=== PATIENT | male | born 1935 | race Caucasian/White ===

== ENCOUNTER 2021-07-12 10:06 | Observation (INO) ==
[2021-07-12] MEDS ORDERED: ZOFRAN INJ 4 MG VIAL IVP PRN (10:49)
[2021-07-12 11:08] LABS: BASOPHILS # (AUTO) 0.1 X10^3/uL (0.0-0.1); EOSINOPHILS # (AUTO) 0.2 x10^3/uL (0.0-0.2); EOSINOPHILS % (AUTO) 2.6 % (0.9-2.9); HEMATOCRIT 39.2 % (42.0-54.0); HEMOGLOBIN 13.2 g/dL (13.5-18.0); LYMPHOCYTES # (AUTO) 1.1 X10^3/uL (1.3-2.9); LYMPHOCYTES % (AUTO) 18.5 % (21.0-51.0); MEAN CORPUSCULAR HEMOGLOBIN 30.7 pg (27.0-34.0); MEAN CORPUSCULAR HGB CONC 33.7 g/dL (33.0-35.0); MEAN CORPUSCULAR VOLUME 91.2 fL (80.0-100.0); MONOCYTES # (AUTO) 0.8 x10^3/uL (0.3-0.8); MONOCYTES % (AUTO) 13.2 % (0.0-13.0); NEUTROPHILS # (AUTO) 3.8 x10^3/uL (2.2-4.8); NEUTROPHILS % (AUTO) 64.7 % (42.0-75.0); PLATELET COUNT 183 X10^3/uL (150.0-450.0); WHITE BLOOD COUNT 5.9 X10^3/uL (3.6-10.0)
[2021-07-12 11:26] LABS: ALANINE AMINOTRANSFERASE 17 Units/L (12-78); ALBUMIN 3.7 g/dL (3.4-5.0); ALKALINE PHOSPHATASE 141 Units/L (46-116); ASPARTATE AMINO TRANSFERASE 16 Units/L (15-37); BLOOD UREA NITROGEN 12 mg/dL (7-18); CALCIUM 8.4 mg/dL (8.5-10.1); CHLORIDE 103 mmol/L (98-107); CREATININE 1.55 mg/dL (0.70-1.30); SODIUM 139 mmol/L (136-145); TOTAL PROTEIN 7.1 g/dL (6.4-8.2); eGFR NON BLACK RACES 45 (>60)
[2021-07-12] MEDS: NS 1,000 ML IV 1,000 ML IV SCH ×2 (11:49→19:29)
[2021-07-12 12:07] VITALS: BMI 23.9
--- NOTE | 2021-07-12 14:58 | CT ---
HISTORYAbdominal pain with bloatingSTUDYABDOMEN/PELVIS WITH CONCOMPARISONNone availableTECHNIQUEMultiple axial images of the abdomen and pelvis were obtained from the lung bases to the pubic symphysis after the administration of IV contrast. Dose reduction techniques including Automated Exposure Control (AEC) and adjustment of mA and kV were utilized.FINDINGSThe visualized portions of the lung bases demonstrate moderate pleural effusions with associated subsegmental atelectasis right and left base. The liver, spleen, pancreas, and adrenal glands appear unremarkable. Generalized trophic changes of the right left kidneys are observed with normal medullary cortical enhancement. The urinary bladder demonstrates partial decompression with circumferential bladder wall thickening may be on the basis of longstanding bladder outlet obstruction. Postprocedural changes in the region of the prostate are observed may represent prior TURP. Within the dependent portion of the gallbladder calcific densities consistent with cholelithiasis are observed without CT evidence for acute cholecystitis. No significant mesenteric lymphadenopathy or stranding can be observed. No free fluid or free air is seen within the abdomen. No bowel wall thickening or bowel dilatation is present. Minimal diverticular change of the sigmoid colon is observed without CT evidence for acute diverticulitis. The bony structures are grossly intact.IMPRESSIONBilateral pleural effusions with associated subsegmental atelectasis right and left base.Coli lithiasis without CT evidence for acute cholecystitis.Generalized renal atrophy without hydronephrosis or hydroureter.Circumferential urinary bladder of thickening likely on the basis of chronic bladder outlet obstruction with postprocedural changes within the prostate that would be consistent with prior TURP. Correlation with surgical procedural history is requested.Electronically signed by: BERTHA COSTELLO (Jul 12, 2021 14:56:45)
[2021-07-12 15:56] LABS: BILIRUBIN,URINE NEGATIVE (NEGATIVE); BLOOD/HEMOGLOBIN,URINE 3+ (NEGATIVE); GLUCOSE, URINE NEGATIVE (NEGATIVE); KETONES,URINE NEGATIVE (NEGATIVE); LEUKOCYTE ESTERASE ,URINE NEGATIVE (NEGATIVE); NITRITES,URINE NEGATIVE (NEGATIVE); PROTEIN,URINE 2+ (NEGATIVE); UROBILINOGEN,URINE NORMAL (NORMAL)
[2021-07-12 16:03] LABS: APPEARANCE,URINE CLEAR (CLEAR); BACTERIA,URINE TRACE /HPF (NEGATIVE); COLOR,URINE YELLOW (YELLOW); SQUAMOUS EPITHELIAL CELL,UR RARE /HPF (NEGATIVE)
[2021-07-13] MEDS: NS 1,000 ML IV 1,000 ML IV SCH ×2 (01:38→05:01)
[2021-07-13 04:55] LABS: BASOPHILS # (AUTO) 0.1 X10^3/uL (0.0-0.1); EOSINOPHILS # (AUTO) 0.2 x10^3/uL (0.0-0.2); EOSINOPHILS % (AUTO) 2.8 % (0.9-2.9); HEMATOCRIT 34.8 % (42.0-54.0); HEMOGLOBIN 11.9 g/dL (13.5-18.0); LYMPHOCYTES # (AUTO) 1.1 X10^3/uL (1.3-2.9); LYMPHOCYTES % (AUTO) 17.3 % (21.0-51.0); MEAN CORPUSCULAR HEMOGLOBIN 30.4 pg (27.0-34.0); MEAN CORPUSCULAR VOLUME 89.2 fL (80.0-100.0); MEAN PLATELET VOLUME 8.5 fL (7.4-11.0); MONOCYTES # (AUTO) 0.9 x10^3/uL (0.3-0.8); MONOCYTES % (AUTO) 14.5 % (0.0-13.0); NEUTROPHILS # (AUTO) 3.9 x10^3/uL (2.2-4.8); NEUTROPHILS % (AUTO) 64.4 % (42.0-75.0); PLATELET COUNT 171 X10^3/uL (150.0-450.0); RED BLOOD COUNT 3.91 X10^6/uL (4.7-6.0); RED CELL DISTRIBUTION WIDTH 14.1 % (11.6-16.5); WHITE BLOOD COUNT 6.1 X10^3/uL (3.6-10.0)
[2021-07-13 05:04] LABS: ALANINE AMINOTRANSFERASE 15 Units/L (12-78); ALBUMIN 3.2 g/dL (3.4-5.0); ALKALINE PHOSPHATASE 122 Units/L (46-116); ASPARTATE AMINO TRANSFERASE 16 Units/L (15-37); BLOOD UREA NITROGEN 13 mg/dL (7-18); CARBON DIOXIDE 23.5 mmol/L (21-32); CHLORIDE 102 mmol/L (98-107); COR CA(FOR HYPOALB) 8.6 mg/dL (8.5-10.1); SODIUM 136 mmol/L (136-145); TOTAL PROTEIN 6.1 g/dL (6.4-8.2); eGFR NON BLACK RACES 47 (>60)
[2021-07-13 07:27] VITALS: BP 142/84
[2021-07-13] MEDS ORDERED: LOVENOX INJ 40 MG SYR SC SCH (10:00)
== END 2021-07-13 11:17 | disposition home or self-care (01) ==
LOC: MED/SURG
PROVIDERS: ADMIT Internal Medicine; ATTEND Internal Medicine
DX: R10.9 Unspecified abdominal pain; R82.998 Other abnormal findings in urine; K56.41 Fecal impaction; K80.21 Calculus of gallbladder without cholecystitis with obstruction; Z20.822 Contact with and (suspected) exposure to COVID-19; J90 Pleural effusion, not elsewhere classified

== ENCOUNTER 2021-07-15 10:53 | Observation (INO) ==
[2021-07-15] MEDS ORDERED: PEPCID 20 MG IV PREMIX* 20 MG/50 ML BAG IV SCH (13:39)
[2021-07-15] MEDS ORDERED: ZOFRAN INJ 4 MG VIAL IVP PRN (13:39)
[2021-07-15] MEDS ORDERED: MORPHINE SULFATE INJ 2 MG INJ IVP PRN (13:39)
[2021-07-15] MEDS ORDERED: PROTONIX INJ 40 MG VIAL IVP SCH (13:39)
[2021-07-15 13:58] LABS: BASOPHILS # (AUTO) 0.1 X10^3/uL (0.0-0.1); EOSINOPHILS # (AUTO) 0.1 x10^3/uL (0.0-0.2); EOSINOPHILS % (AUTO) 2.4 % (0.9-2.9); HEMATOCRIT 38.6 % (42.0-54.0); HEMOGLOBIN 12.8 g/dL (13.5-18.0); LYMPHOCYTES # (AUTO) 1.3 X10^3/uL (1.3-2.9); LYMPHOCYTES % (AUTO) 21.6 % (21.0-51.0); MEAN CORPUSCULAR HEMOGLOBIN 29.9 pg (27.0-34.0); MEAN CORPUSCULAR HGB CONC 33.2 g/dL (33.0-35.0); MEAN PLATELET VOLUME 8.4 fL (7.4-11.0); MONOCYTES % (AUTO) 16.9 % (0.0-13.0); NEUTROPHILS # (AUTO) 3.6 x10^3/uL (2.2-4.8); NEUTROPHILS % (AUTO) 58.1 % (42.0-75.0); PLATELET COUNT 185 X10^3/uL (150.0-450.0); RED BLOOD COUNT 4.29 X10^6/uL (4.7-6.0); RED CELL DISTRIBUTION WIDTH 14.1 % (11.6-16.5); WHITE BLOOD COUNT 6.1 X10^3/uL (3.6-10.0)
[2021-07-15] MEDS: NS 1,000 ML IV 1,000 ML IV SCH (14:15)
[2021-07-15 14:18] LABS: ALANINE AMINOTRANSFERASE 10 Units/L (12-78); ALBUMIN 3.7 g/dL (3.4-5.0); ALKALINE PHOSPHATASE 135 Units/L (46-116); ASPARTATE AMINO TRANSFERASE 18 Units/L (15-37); BLOOD UREA NITROGEN 19 mg/dL (7-18); CALCIUM 8.2 mg/dL (8.5-10.1); CARBON DIOXIDE 28.6 mmol/L (21-32); CHLORIDE 98 mmol/L (98-107); CREATININE 1.77 mg/dL (0.70-1.30); SODIUM 133 mmol/L (136-145); eGFR NON BLACK RACES 39 (>60)
[2021-07-15] MEDS ORDERED: NS 1,000 ML IV 1,000 ML ONE (14:37)
[2021-07-15] MEDS ORDERED: DIPRIVAN VIAL 20 ML ONE (14:43)
[2021-07-15] MEDS ORDERED: CITROMA PO ONE (16:30)
[2021-07-15] MEDS ORDERED: DULCOLAX TAB EC 5 MG PO ONE (16:30)
[2021-07-15 21:16] LABS: BILIRUBIN,URINE NEGATIVE (NEGATIVE); BLOOD/HEMOGLOBIN,URINE 3+ (NEGATIVE); GLUCOSE, URINE NEGATIVE (NEGATIVE); KETONES,URINE NEGATIVE (NEGATIVE); LEUKOCYTE ESTERASE ,URINE 1+ (NEGATIVE); NITRITES,URINE NEGATIVE (NEGATIVE); PROTEIN,URINE 3+ (NEGATIVE); UROBILINOGEN,URINE NORMAL (NORMAL)
[2021-07-15 21:23] LABS: APPEARANCE,URINE CLEAR (CLEAR); COLOR,URINE YELLOW (YELLOW)
[2021-07-15 21:24] LABS: BACTERIA,URINE TRACE /HPF (NEGATIVE); SQUAMOUS EPITHELIAL CELL,UR RARE /HPF (NEGATIVE)
[2021-07-16] MEDS: NS 1,000 ML IV 1,000 ML IV SCH (03:23)
[2021-07-16 06:10] LABS: BASOPHILS % (AUTO) 0.8 % (0.2-1.0); EOSINOPHILS # (AUTO) 0.1 x10^3/uL (0.0-0.2); EOSINOPHILS % (AUTO) 2.7 % (0.9-2.9); HEMOGLOBIN 11.6 g/dL (13.5-18.0); LYMPHOCYTES % (AUTO) 19.7 % (21.0-51.0); MEAN CORPUSCULAR HEMOGLOBIN 29.8 pg (27.0-34.0); MEAN CORPUSCULAR HGB CONC 33.2 g/dL (33.0-35.0); MEAN CORPUSCULAR VOLUME 89.8 fL (80.0-100.0); MEAN PLATELET VOLUME 8.4 fL (7.4-11.0); MONOCYTES # (AUTO) 0.8 x10^3/uL (0.3-0.8); MONOCYTES % (AUTO) 15.5 % (0.0-13.0); NEUTROPHILS # (AUTO) 3.1 x10^3/uL (2.2-4.8); NEUTROPHILS % (AUTO) 61.3 % (42.0-75.0); PLATELET COUNT 158 X10^3/uL (150.0-450.0); RED BLOOD COUNT 3.89 X10^6/uL (4.7-6.0); RED CELL DISTRIBUTION WIDTH 14.1 % (11.6-16.5)
[2021-07-16 06:23] LABS: ALANINE AMINOTRANSFERASE 12 Units/L (12-78); ALBUMIN 3.2 g/dL (3.4-5.0); ALKALINE PHOSPHATASE 117 Units/L (46-116); ASPARTATE AMINO TRANSFERASE 15 Units/L (15-37); BLOOD UREA NITROGEN 17 mg/dL (7-18); CARBON DIOXIDE 25.7 mmol/L (21-32); CHLORIDE 102 mmol/L (98-107); COR CA(FOR HYPOALB) 8.6 mg/dL (8.5-10.1); CREATININE 1.64 mg/dL (0.70-1.30); SODIUM 136 mmol/L (136-145); TOTAL PROTEIN 6.1 g/dL (6.4-8.2); eGFR NON BLACK RACES 43 (>60)
[2021-07-16] MEDS ORDERED: PEPCID 20 MG IV PREMIX* 50 ML IV ONE (07:04)
[2021-07-16] MEDS ORDERED: PROTONIX INJ 40 MG VIAL ONE (07:04)
[2021-07-16] MEDS ORDERED: DIPRIVAN VIAL 20 ML ONE (08:24)
[2021-07-16 08:29] VITALS: BMI 25.8
[2021-07-16] MEDS ORDERED: PROTONIX INJ 40 MG VIAL IVP SCH (09:00)
[2021-07-16] MEDS ORDERED: PEPCID 20 MG IV PREMIX* 20 MG/50 ML BAG IV SCH (09:00)
[2021-07-16 11:22] VITALS: BP 160/71
== END 2021-07-16 11:50 | disposition home or self-care (01) ==
LOC: MED/SURG
PROVIDERS: ADMIT Internal Medicine; ATTEND Internal Medicine

== ENCOUNTER 2021-07-22 15:32 | Inpatient (IN) ==
--- NOTE | 2021-07-22 16:01 | DR.SOBA ---
HPI Time Seen Time Seen by Provider: 07/22/21 15:45 Primary Care Physician Primary Care Physician: TEDDY ADEN Complaints Chief Complaint Doctors Comments: 86 y/o male awoke at 0300 having shortness of breath. Was associated with left chest pain, that radiated to his back. Pain was sharp, constant, lasted for several minutes. Pain returned shortly prior to arrival, still left side. Nothing made the pain worse, improved with rest and time. Currently resolved. No associated diaphoresis, nausea, vomiting. Per spouse, he looked pale. Pt has been admitted recently for GI issues, had EGD/colonoscopy performed recently. Abdomen currently doing better. Has had a slight non productive cough, denies fever or chills. Pt reports a 12 lb weight gain over the past few days. Chief Complaint:: PTS STATES " HE IS SOB AND HAVING C/P AND LEFT SIDE BACK PAIN " THAT STARTES THIS AM AT 0300 THIS AM AND IT GOT BETTER AND THAN AT 1430 HIS PAIN IS WORSE, ( PT STATES HIS PAIN IS TO HIS LEFT CHEST, " JUST HURTS ) PT WAS IN THE HOSPITAL TWICE LAST WEEK AND WAS D/C HOME THE NEXT DAY, AND PT WAS SEEN BY TEDDY ADEN ON MONDAY , DX OF DIVERTICULOSIS, PT HAD EGD , AND COLONOSCOPY, BR Self Treatment fo Chief Complaint: PT JUST STARTED TAKING REG MEDS ON , BR NO DISTRESS NOTED ,BR COVID-19 Coronavirus risk:travel/contact w/high risk person: No Has patient experienced Coronavirus symptoms: Yes Coronavirus symptoms experienced: Coughing and Shortness of Breath Reviewed Nurses Notes Reviewed: Yes Source History Provided: Patient Mode of Arrival Mode of Arrival: Wheelchair Timing Onset of Chief Complaint: 07/22/21 PMH PMH Past Medical History: Yes Past Medical History: Hypertension Past Surgical History: Yes Surgical History: Other Past Surgical History Comment: PACEMAKER ,BR Family History History of Family Medical Conditions: Yes Family Medical History: Diabetes Mellitus and Hypertension Social History Does patient currently use any type of tobacco product: No Have you used tobacco products in the last 12 months: No Type of Tobacco Use: None Does any household member use tobacco: No Alcohol Use: None Do you use any recreational Drugs:: No Lives With: Family Lives Where: Home Infectious screening In the last 2 months have you had wt loss of >10#?: NO Have you had fever, night sweats or hemotysis?: No Have you traveled outside the country in the last 6 months?: No Isolation: Standard ROS Review of Systems Constitutional: No Symptoms Reported Eyes: No Symptoms Reported ENTM: No Symptoms Reported Respiratoy: Non-Productive Cough and Short of Breath Cardiovascular: Chest Pain Gastrointestinal/Abdominal: No Symptoms Reported Genitourinary: No Symptoms Reported Neurological: No Symptoms Reported Musculoskeletal: No Symptoms Reported Integumentary: No Symptoms Reported Hematologic/Lymphatic: No Symptoms Reported Psychiatric: No Symptoms Reported All Other Systems: Reviewed and Negative PE Vital Signs Vitals: Temperature 97.7 F Pulse Rate [Left Radial] 70 Pulse Rate 36 Respiratory Rate 25 Blood Pressure [Left Arm] 121/85 Blood Pressure 135/58 O2 Sat by Pulse Oximetry 99 General Limitations: No Limitations General Appearance: Alert and In No Apparent Distress Head Head Exam: Normal Inspection Eyes Eye exam: Normal Appearance, PERRL and EOMI ENT ENT Exam: Normal Exam and Mucous Membranes Moist Neck Neck Exam: Normal Inspection Chest Chest Inspection: Normal Inspection Respiratory Respiratory Exam: Other (decreased breath sounds at the bases with rales ); negative Accessory Muscle Use and Respiratory Distress Cardiovascular Cardiovascular Exam: Regular Rate, Normal Rhythm and Normal Heart Sounds Abdominal Exam Abdominal Exam: Normal Inspection, Normal Bowel Sounds and Soft; negative Tenderness Extremities Extremities Exam: Normal Inspection and Full ROM; negative Tenderness and Edema Back Back Exam: Normal Inspection Neurologic Neurological Exam: Alert, Oriented X3 and CN II-XII Intact; negative Motor Sensory Deficit Psychiatric Psychiatric Exam: Normal Affect Skin Skin Exam: Warm and Dry MDM Differential Diagnosis Differential Diagnosis: CHF, COPD, Mycardial Infarction, Pneumonia and Pulmonary embolism COURSE Treatment Treatment: Pt with intermittent chest pain and dyspnea over the past 12 hours. Currently doing better. W/u initiated. 1751 - Pt with CHF. CXR wet, BNP > 2,000. Cardiac enzymes negative. Given IV lasix. Will admit. Discussed with his covering MD, Dr. Pablo, accepts the admission. ROR Labs Reviewed Laboratory Results Reviewed?: Yes Result Diagrams: 07/22/21 15:55 07/22/21 15:55 Laboratory: WBC 6.4 X10^3/uL (3.6-10.0) 07/22/21 15:55 RBC 4.05 X10^6/uL (4.7-6.0) L 07/22/21 15:55 Hgb 12.1 g/dL (13.5-18.0) L 07/22/21 15:55 Hct 36.0 % (42.0-54.0) L 07/22/21 15:55 MCV 88.7 fL (80.0-100.0) 07/22/21 15:55 MCH 29.8 pg (27.0-34.0) 07/22/21 15:55 MCHC 33.6 g/dL (33.0-35.0) 07/22/21 15:55 RDW 14.3 % (11.6-16.5) 07/22/21 15:55 Plt Count 236 X10^3/uL (150.0-450.0) 07/22/21 15:55 MPV 8.4 fL (7.4-11.0) 07/22/21 15:55 Neut % (Auto) 74.7 % (42.0-75.0) 07/22/21 15:55 Lymph % (Auto) 10.4 % (21.0-51.0) L 07/22/21 15:55 [place] % (Auto) 11.5 % (0.0-13.0) 07/22/21 15:55 Eos % (Auto) 1.7 % (0.9-2.9) 07/22/21 15:55 Baso % (Auto) 1.7 % (0.2-1.0) H 07/22/21 15:55 Neut # (Auto) 4.8 x10^3/uL (2.2-4.8) 07/22/21 15:55 Lymph # (Auto) 0.7 X10^3/uL (1.3-2.9) L 07/22/21 15:55 [place] # (Auto) 0.7 x10^3/uL (0.3-0.8) 07/22/21 15:55 Eos # (Auto) 0.1 x10^3/uL (0.0-0.2) 07/22/21 15:55 Baso # (Auto) 0.1 X10^3/uL (0.0-0.1) 07/22/21 15:55 Absolute Nucleated RBC 0.0 /100WBC 07/22/21 15:55 D-Dimer 1.01 ug/ml (0.0-0.57) H* 07/22/21 15:55 Sodium 134 mmol/L (136-145) L 07/22/21 15:55 Corrected Sodium 136 mmol/L (136-145) 07/22/21 15:55 Potassium 4.4 mmol/L (3.5-5.1) 07/22/21 15:55 Chloride 99 mmol/L (98-107) 07/22/21 15:55 Carbon Dioxide 27.0 mmol/L (21-32) 07/22/21 15:55 BUN 30 mg/dL (7-18) H 07/22/21 15:55 Creatinine 1.66 mg/dL (0.70-1.30) H 07/22/21 15:55 Est GFR (MDRD) Af Amer 51 (>60) L 07/22/21 15:55 Est GFR (MDRD) Non-Af 42 (>60) L 07/22/21 15:55 Glucose 166 mg/dL (65-99) H 07/22/21 15:55 Calcium 8.1 mg/dL (8.5-10.1) L 07/22/21 15:55 Corrected Calcium 8.7 mg/dL (8.5-10.1) 07/22/21 15:55 Total Bilirubin 0.50 mg/dL (0.2-1.0) 07/22/21 15:55 AST 18 Units/L (15-37) 07/22/21 15:55 ALT 7 Units/L (12-78) L 07/22/21 15:55 Alkaline Phosphatase 113 Units/L (46-116) 07/22/21 15:55 Creatine Kinase 79 Units/L (39-308) 07/22/21 15:55 CK-MB (CK-2) 2.5 ng/mL (0-4.0) 07/22/21 15:55 CK/CKMB % Calc 3.2 % (<4) 07/22/21 15:55 Troponin I 0.03 ng/mL (0-1.5) 07/22/21 15:55 B-Natriuretic Peptide 2960 pg/mL (0-79) H* 07/22/21 15:55 Total Protein 6.5 g/dL (6.4-8.2) 07/22/21 15:55 Albumin 3.3 g/dL (3.4-5.0) L 07/22/21 15:55 Globulin 3.2 g/dL (2.5-4.5) 07/22/21 15:55 Albumin/Globulin Ratio 1.0 Ratio (1.1-2.1) L 07/22/21 15:55 SARS CoV-2 RNA Rapid AREN Negative (NEGATIVE) 07/22/21 16:30 EKG Rate: 75 [place]: LAD Rhythm: Paced Opioid Opioid Risk Tool Age (Adonis box if 16-45): No History of Preadolescent Sexual Abuse: No Total: 0 Total Score Risk Category: Low Risk Copyright: James ANTOINE predicting aberrant behaviors Diagnosis Discharge Problem: Congestive heart failure Qualifiers: Heart failure chronicity: acute
--- NOTE | 2021-07-22 16:05 | RAD ---
HISTORYshortness of breath.br.br.br.br.br [id number] trachea is midline. Heart size is enlarged. Moderate increased interstitial opacities and central peribronchial thickening with bilateral pleural effusions. No change in positioning of left chest wall pacemaker. No pneumothorax.No acute osseous abnormality.IMPRESSIONCardiomegaly with moderate pulmonary interstitial edema and bilateral layering pleural effusions. Findings are most consistent with CHF and/or volume overload.Electronically signed by: DA CUTLER (Jul 22, 2021 16:03:55)
[2021-07-22] MEDS ORDERED: LASIX IVP ONE ×2 (16:08→16:13)
[2021-07-22 16:26] LABS: BASOPHILS # (AUTO) 0.1 X10^3/uL (0.0-0.1); BASOPHILS % (AUTO) 1.7 % (0.2-1.0); EOSINOPHILS # (AUTO) 0.1 x10^3/uL (0.0-0.2); EOSINOPHILS % (AUTO) 1.7 % (0.9-2.9); HEMOGLOBIN 12.1 g/dL (13.5-18.0); LYMPHOCYTES # (AUTO) 0.7 X10^3/uL (1.3-2.9); LYMPHOCYTES % (AUTO) 10.4 % (21.0-51.0); MEAN CORPUSCULAR HEMOGLOBIN 29.8 pg (27.0-34.0); MEAN CORPUSCULAR HGB CONC 33.6 g/dL (33.0-35.0); MEAN CORPUSCULAR VOLUME 88.7 fL (80.0-100.0); MEAN PLATELET VOLUME 8.4 fL (7.4-11.0); MONOCYTES # (AUTO) 0.7 x10^3/uL (0.3-0.8); MONOCYTES % (AUTO) 11.5 % (0.0-13.0); NEUTROPHILS # (AUTO) 4.8 x10^3/uL (2.2-4.8); NEUTROPHILS % (AUTO) 74.7 % (42.0-75.0); PLATELET COUNT 236 X10^3/uL (150.0-450.0); RED BLOOD COUNT 4.05 X10^6/uL (4.7-6.0); RED CELL DISTRIBUTION WIDTH 14.3 % (11.6-16.5); WHITE BLOOD COUNT 6.4 X10^3/uL (3.6-10.0)
[2021-07-22 16:46] LABS: ALBUMIN 3.3 g/dL (3.4-5.0); CALCIUM 8.1 mg/dL (8.5-10.1); CKMB % 3.2 % (<4); COR CA(FOR HYPOALB) 8.7 mg/dL (8.5-10.1); CREATINE KINASE MB 2.5 ng/mL (0-4.0); CREATININE 1.66 mg/dL (0.70-1.30); TOTAL PROTEIN 6.5 g/dL (6.4-8.2); TROPONIN I 0.03 ng/mL (0-1.5)
[2021-07-22 18:59] VITALS: BMI 25.4
[2021-07-22] MEDS: COLACE CAP 100 MG PO SCH (21:00)
[2021-07-22] MEDS: BENTYL CAP 10 MG PO SCH (21:00)
[2021-07-22] MEDS: INDERAL TAB 10 MG PO SCH (21:00)
[2021-07-22] MEDS: ENTRESTO 24/26 MG TAB PO SCH (21:00)
[2021-07-22] MEDS: MYSOLINE TAB 250 MG PO SCH (21:01)
[2021-07-22] MEDS: MIRALAX POWDER (1 DOSE 17 G) PO SCH (21:01)
[2021-07-22] MEDS: MILK OF MAGNESIA PO SCH (21:01)
[2021-07-22] MEDS: SINEMET (PLAIN) 25/100 MG PO SCH (21:06)
[2021-07-23] MEDS ORDERED: ROBITUSSIN DM PO PRN (05:35)
[2021-07-23 06:07] LABS: BASOPHILS % (AUTO) 0.7 % (0.2-1.0); EOSINOPHILS # (AUTO) 0.1 x10^3/uL (0.0-0.2); EOSINOPHILS % (AUTO) 1.8 % (0.9-2.9); HEMATOCRIT 35.7 % (42.0-54.0); LYMPHOCYTES # (AUTO) 1.1 X10^3/uL (1.3-2.9); LYMPHOCYTES % (AUTO) 17.1 % (21.0-51.0); MEAN CORPUSCULAR HEMOGLOBIN 29.7 pg (27.0-34.0); MEAN CORPUSCULAR HGB CONC 33.7 g/dL (33.0-35.0); MEAN PLATELET VOLUME 8.3 fL (7.4-11.0); MONOCYTES % (AUTO) 15.9 % (0.0-13.0); NEUTROPHILS # (AUTO) 4.2 x10^3/uL (2.2-4.8); NEUTROPHILS % (AUTO) 64.5 % (42.0-75.0); PLATELET COUNT 222 X10^3/uL (150.0-450.0); RED BLOOD COUNT 4.06 X10^6/uL (4.7-6.0); RED CELL DISTRIBUTION WIDTH 14.4 % (11.6-16.5); WHITE BLOOD COUNT 6.5 X10^3/uL (3.6-10.0)
[2021-07-23 06:18] LABS: ALBUMIN 3.2 g/dL (3.4-5.0); CALCIUM 8.3 mg/dL (8.5-10.1); CARBON DIOXIDE 26.6 mmol/L (21-32); COR CA(FOR HYPOALB) 8.9 mg/dL (8.5-10.1); CREATININE 1.59 mg/dL (0.70-1.30); TOTAL PROTEIN 6.1 g/dL (6.4-8.2)
[2021-07-23] MEDS: SINEMET (PLAIN) 25/100 MG PO SCH ×3 (06:18→21:07)
--- NOTE | 2021-07-23 06:23 | RAD ---
PROCEDURE: Chest X-ray 1 View .HISTORY: Congestive heart failure.TECHNIQUE: AP view .COMPARISON: 07/22/2021.TECHNICAL QUALITY: Satisfactory .FINDINGS:Heart size upper limits of normal with pacemaker on the left.Normal central vascularity.Improved hazy increased density at the bases may represent improved edema. No pleural fluid or pneumothorax.IMPRESSION:Improved edema at the lung bases with minimal residual changes remaining present.Electronically signed by: Alexei Ballesteros (Jul 23, 2021 06:21:57)
[2021-07-23] MEDS ORDERED: NAMENDA TAB 10 MG PO SCH (09:00)
[2021-07-23] MEDS ORDERED: EXELON PATCH TD SCH (09:00)
[2021-07-23] MEDS ORDERED: PATIENT'S HOME MEDICATION PO SCH (09:00)
[2021-07-23] MEDS ORDERED: LASIX IVP SCH (09:00)
[2021-07-23] MEDS: SYNTHROID 75 mcg TAB PO SCH (09:40)
[2021-07-23] MEDS: INDERAL TAB 10 MG PO SCH ×2 (09:40→20:19)
[2021-07-23] MEDS: COLACE CAP 100 MG PO SCH ×2 (09:41→20:19)
[2021-07-23] MEDS: BENTYL CAP 10 MG PO SCH ×2 (09:41→20:19)
[2021-07-23] MEDS: CRESTOR TAB 10 MG PO SCH (09:41)
[2021-07-23] MEDS: ENTRESTO 24/26 MG TAB PO SCH ×2 (09:41→20:19)
[2021-07-23] MEDS: MYSOLINE TAB 250 MG PO SCH ×2 (09:41→20:20)
[2021-07-23] MEDS: NORVASC TAB 5 MG PO SCH (09:42)
[2021-07-23] MEDS: PRASTERONE 25 MG PO SCH (09:43)
--- NOTE | 2021-07-23 11:21 | DR.H&P ---
H&P History & Physical for Day of: H&P Date: 07/23/21 Chief Complaint Chief Complaint: Shortness of breath Chest pain Allergies Allergies Allergy/AdvReac Type Severity Reaction Status Date / Time No Known Drug Allergies Allergy Verified 07/12/21 11:32 History of Present Illness History of Present Illness: Pt is a 86 year old male past medical history of Pacemaker, Hypertension presenting with shortness of breath and chest pain for the past 1-2 days. Pt reported worsening shortness of breath and went to ED. Labs/imaging: Wbc 6.5, Hgb 12, Plt 222, Na 137, K 4.2, Creatinine 1.59, Glucose 122, BNP 2960, Troponin 0.03, EKG Paced rhythm. CXR: Cardiomegaly with moderate pulmonary interstitial edema and bilateral layering pleural effusions. Findings are most consistent with CHF and/or volume overload. Pt was admitted for new onset CHF exacerbation. Treatment included fluid restriction, IV Lasix 40mg daily, and home medications were restarted. This morning patient reports some improvement in shortness of breath. CXR this morning was obtained that revealed: Improved edema at the lung bases with minimal residual changes remaining present. Pt did have on admission elevated D-dimer 1.01, will get CTA chest to evaluate if renal function permits. Repeat troponin this morning. 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 Order Echo to evaluate cardiac function. Continue to monitor and follow up labs/imaging. Past Medical History Past Medical History: Hypertension Past Surgical History Surgical History: Other Family History Family Medical History: Diabetes Mellitus and Hypertension Social History Does patient currently use any type of tobacco product: No Have you used tobacco products in the last 12 months: No Type of Tobacco Use: None Does any household member use tobacco: No Alcohol Use: None Drug Use: None Medications Home Medications: No Known Drug Allergies Allergy (Verified 07/12/21 11:32) CONTINUE taking the following medications amlodipine 5 mg PO DAILY 07/22/21 [History] dicyclomine 20 mg PO BID 07/22/21 [History] levothyroxine 75 mcg PO DAILY 07/22/21 [History] memantine 28 mg PO DAILY 07/22/21 [History] prasterone (dhea) [DHEA] 25 mg PO DAILY 07/22/21 [History] primidone 250 mg PO BID 07/22/21 [History] propranolol 20 mg PO BID 07/22/21 [History] rivastigmine 1 patch TRANSDERMAL ONCE 07/22/21 [History] rosuvastatin 10 mg PO DAILY 07/22/21 [History] sacubitril-valsartan [Entresto] 1 tab PO BID 07/22/21 [History] vitamin R24-ksytq acid 1 tab PO DAILY 07/22/21 [History] Labs Result Diagrams: 07/23/21 05:25 07/23/21 05:25 Labs: Laboratory WBC 6.5 X10^3/uL (3.6-10.0) 07/23/21 05:25 RBC 4.06 X10^6/uL (4.7-6.0) L 07/23/21 05:25 Hgb 12.0 g/dL (13.5-18.0) L 07/23/21 05:25 Hct 35.7 % (42.0-54.0) L 07/23/21 05:25 MCV 88.0 fL (80.0-100.0) 07/23/21 05:25 MCH 29.7 pg (27.0-34.0) 07/23/21 05:25 MCHC 33.7 g/dL (33.0-35.0) 07/23/21 05:25 RDW 14.4 % (11.6-16.5) 07/23/21 05:25 Plt Count 222 X10^3/uL (150.0-450.0) 07/23/21 05:25 MPV 8.3 fL (7.4-11.0) 07/23/21 05:25 Neut % (Auto) 64.5 % (42.0-75.0) 07/23/21 05:25 Lymph % (Auto) 17.1 % (21.0-51.0) L 07/23/21 05:25 [place] % (Auto) 15.9 % (0.0-13.0) H 07/23/21 05:25 Eos % (Auto) 1.8 % (0.9-2.9) 07/23/21 05:25 Baso % (Auto) 0.7 % (0.2-1.0) 07/23/21 05:25 Neut # (Auto) 4.2 x10^3/uL (2.2-4.8) 07/23/21 05:25 Lymph # (Auto) 1.1 X10^3/uL (1.3-2.9) L 07/23/21 05:25 [place] # (Auto) 1.0 x10^3/uL (0.3-0.8) H 07/23/21 05:25 Eos # (Auto) 0.1 x10^3/uL (0.0-0.2) 07/23/21 05:25 Baso # (Auto) 0.0 X10^3/uL (0.0-0.1) 07/23/21 05:25 Absolute Nucleated RBC 0.2 /100WBC 07/23/21 05:25 D-Dimer 1.01 ug/ml (0.0-0.57) H* 07/22/21 15:55 Sodium 137 mmol/L (136-145) 07/23/21 05:25 Corrected Sodium 138 mmol/L (136-145) 07/23/21 05:25 Potassium 4.2 mmol/L (3.5-5.1) 07/23/21 05:25 Chloride 101 mmol/L (98-107) 07/23/21 05:25 Carbon Dioxide 26.6 mmol/L (21-32) 07/23/21 05:25 BUN 29 mg/dL (7-18) H 07/23/21 05:25 Creatinine 1.59 mg/dL (0.70-1.30) H 07/23/21 05:25 Est GFR (MDRD) Af Amer 53 (>60) L 07/23/21 05:25 Est GFR (MDRD) Non-Af 44 (>60) L 07/23/21 05:25 Glucose 122 mg/dL (65-99) H 07/23/21 05:25 POC Glucose (mg/dL) 111 mg/dL (65-99) H 07/23/21 06:22 Calcium 8.3 mg/dL (8.5-10.1) L 07/23/21 05:25 Corrected Calcium 8.9 mg/dL (8.5-10.1) 07/23/21 05:25 Total Bilirubin 0.50 mg/dL (0.2-1.0) 07/23/21 05:25 AST 18 Units/L (15-37) 07/23/21 05:25 ALT 6 Units/L (12-78) L 07/23/21 05:25 Alkaline Phosphatase 105 Units/L (46-116) 07/23/21 05:25 Creatine Kinase 79 Units/L (39-308) 07/22/21 15:55 CK-MB (CK-2) 2.5 ng/mL (0-4.0) 07/22/21 15:55 CK/CKMB % Calc 3.2 % (<4) 07/22/21 15:55 Troponin I 0.03 ng/mL (0-1.5) 07/22/21 15:55 B-Natriuretic Peptide 2960 pg/mL (0-79) H* 07/22/21 15:55 Total Protein 6.1 g/dL (6.4-8.2) L 07/23/21 05:25 Albumin 3.2 g/dL (3.4-5.0) L 07/23/21 05:25 Globulin 2.9 g/dL (2.5-4.5) 07/23/21 05:25 Albumin/Globulin Ratio 1.1 Ratio (1.1-2.1) 07/23/21 05:25 SARS CoV-2 RNA Rapid AREN Negative (NEGATIVE) 07/22/21 16:30 Review of Systems Constitutional: No Symptoms Reported Eyes: No Symptoms Reported ENT: No Symptoms Reported Respiratory: Shortness of Breath Cardiovascular: Chest Pain; denies Edema Gastrointestinal: No Symptoms Reported Genitourinary: No Symptoms Reported Musculoskeletal: No Symptoms Reported Skin: No Symptoms Reported Neurological: No Symptoms Reported Physical Exam Vital Signs: Temperature 97.5 F Pulse Rate [Right] 81 Pulse Rate [Left Radial] 70 Pulse Rate 31 Respiratory Rate 20 Blood Pressure [Right Arm] 135/70 Blood Pressure [Left Arm] 121/85 Blood Pressure 129/71 O2 Sat by Pulse Oximetry 98 Oriented: Normal Eyes: Normal Ear: Normal Nose: Normal Throat: Normal Respiratory: RLL Rales and LLL Rales Cardiovascular: Normal : Normal Auscultation: Bowel Sounds: Normal Palpation: Normal Tenderness: Normal Skin: Normal Musculoskeletal: Normal Psychiatric: Normal Mood Description: Calm and Appropriate Affect: Normal Speech Pattern: Clear and Appropriate Assessment/Plan (1) New onset of congestive heart failure: Status: Acute Plan: Repeat troponin, IV Lasix 40mg daily Echo ordered Review H&P Reviewed: Yes Patient was examined?: Yes
[2021-07-23] MEDS ORDERED: NS 100 ML IV 100 ML ONE (11:29)
--- NOTE | 2021-07-23 12:40 | CT ---
HISTORY:Elevated D-dimerStudy: CTA chestComparison:NoneTechnique: Multiple axial images of the chest were obtained after the administration of IV contrast. 3D reconstructions were performed utilizing radial maximum intensity projection imaging. Dose reduction techniques including Automated Exposure Control (AEC) and adjustment of mA and kV were utilized.Findings:Contrast opacification of the pulmonary arteries is adequate to the level of the segmental branches. The exam is positive for bibasilar pulmonary emboli in the lower lobes and right middle lobe. There is cardiomegaly with right heart strain. The aorta appears normal in course and caliber. There are large bilateral pleural effusions compressive atelectasis. Airways are patient.The soft tissues and osseous structures appear intact. Incidental note of cholelithiasis. There is bilateral renal atrophy and cortical stranding.IMPRESSION:Exam is positive for bilateral pulmonary emboli at the lung bases.Cardiomegaly with large bilateral pleural effusions and right heart strain.Incidental note of cholelithiasis.Electronically signed by: GOKUL BANDA (Jul 23, 2021 12:39:07)
[2021-07-23] MEDS ORDERED: HEPARIN SODIUM INJ 5000 UNITS IVP ONE (13:40)
[2021-07-23] MEDS: HEPARIN SODIUM IN D5W 25,000 UNITS/500 ML BAG IV PRN (14:15)
[2021-07-23] MEDS: MILK OF MAGNESIA PO SCH (20:20)
[2021-07-23] MEDS: MIRALAX POWDER (1 DOSE 17 G) PO SCH (20:20)
[2021-07-23] MEDS: PATIENT'S HOME MEDICATION PO SCH (20:20)
[2021-07-24 03:54] LABS: BASOPHILS # (AUTO) 0.1 X10^3/uL (0.0-0.1); BASOPHILS % (AUTO) 1.1 % (0.2-1.0); EOSINOPHILS # (AUTO) 0.2 x10^3/uL (0.0-0.2); EOSINOPHILS % (AUTO) 2.7 % (0.9-2.9); HEMATOCRIT 36.7 % (42.0-54.0); HEMOGLOBIN 12.3 g/dL (13.5-18.0); LYMPHOCYTES # (AUTO) 1.2 X10^3/uL (1.3-2.9); LYMPHOCYTES % (AUTO) 17.3 % (21.0-51.0); MEAN CORPUSCULAR HEMOGLOBIN 29.3 pg (27.0-34.0); MEAN CORPUSCULAR HGB CONC 33.4 g/dL (33.0-35.0); MEAN CORPUSCULAR VOLUME 87.7 fL (80.0-100.0); MEAN PLATELET VOLUME 8.3 fL (7.4-11.0); MONOCYTES % (AUTO) 14.4 % (0.0-13.0); NEUTROPHILS # (AUTO) 4.6 x10^3/uL (2.2-4.8); NEUTROPHILS % (AUTO) 64.5 % (42.0-75.0); PLATELET COUNT 237 X10^3/uL (150.0-450.0); RED BLOOD COUNT 4.19 X10^6/uL (4.7-6.0); RED CELL DISTRIBUTION WIDTH 14.2 % (11.6-16.5); WHITE BLOOD COUNT 7.2 X10^3/uL (3.6-10.0)
[2021-07-24 04:02] LABS: ALBUMIN 3.3 g/dL (3.4-5.0); CALCIUM 8.3 mg/dL (8.5-10.1); CARBON DIOXIDE 29.2 mmol/L (21-32); COR CA(FOR HYPOALB) 8.9 mg/dL (8.5-10.1); CREATININE 1.75 mg/dL (0.70-1.30); TOTAL PROTEIN 6.3 g/dL (6.4-8.2)
[2021-07-24] MEDS: SINEMET (PLAIN) 25/100 MG PO SCH ×3 (06:25→21:02)
[2021-07-24] MEDS: BENTYL CAP 10 MG PO SCH ×2 (08:58→20:30)
[2021-07-24] MEDS: CRESTOR TAB 10 MG PO SCH (08:59)
[2021-07-24] MEDS: PRASTERONE 25 MG PO SCH (08:59)
[2021-07-24] MEDS: NORVASC TAB 5 MG PO SCH (08:59)
[2021-07-24] MEDS: COLACE CAP 100 MG PO SCH ×2 (08:59→20:30)
[2021-07-24] MEDS: ENTRESTO 24/26 MG TAB PO SCH ×2 (08:59→20:30)
[2021-07-24] MEDS: MYSOLINE TAB 250 MG PO SCH ×2 (09:00→20:30)
[2021-07-24] MEDS: SYNTHROID 75 mcg TAB PO SCH (09:00)
[2021-07-24] MEDS: INDERAL TAB 10 MG PO SCH ×2 (09:00→20:30)
[2021-07-24] MEDS ORDERED: LASIX IVP SCH (11:00)
[2021-07-24] MEDS: MIRALAX POWDER (1 DOSE 17 G) PO SCH (20:30)
[2021-07-24] MEDS: MILK OF MAGNESIA PO SCH (20:30)
[2021-07-24] MEDS: PATIENT'S HOME MEDICATION PO SCH (20:31)
[2021-07-24] MEDS: HEPARIN SODIUM IN D5W 25,000 UNITS/500 ML BAG IV PRN (22:50)
[2021-07-24 23:03] VITALS: BP 135/61
--- NOTE | 2021-07-25 06:21 | RAD ---
HISTORYPulmonary embolusSTUDYAP [id number] cardiomegaly with pacemaker. Increasing vascular dilatation and bilateral infiltrates/edema. No pneumothorax identified.IMPRESSIONStable cardiac enlargement with increasing pulmonary vascular and parenchymal changes consistent with CHF/pulmonary edema.Electronically signed by: NANCY NEWMAN (Jul 25, 2021 06:20:51)
--- NOTE | 2021-07-25 09:02 | W.DIS.FURT ---
Summary of Discharge Discharge Summary of Date Date of Exam: 07/24/21 Admission Date Date of Admission: 07/22/21 Admission Diagnosis Patient Problems (Updated 07/25/21 @ 09:53 by Luiz Buckley) Congestive heart failure (Acute) I50.9 Hospital Course: Pt is a 86 year old male past medical history of Pacemaker, Hypertension admitted with new onset CHF. Troponin negative, D-dimer elevated, CTA Chest re vealed: positive for bibasilar pulmonary emboli in the lower lobes and right middle lobe. Cardiomegaly with right heart strain. There are large bilateral pleural effusions compressive atelectasis. Echo: EF 28%, severe decrease in global wall motion. He is currently receiving IV Lasix and was started on heparin gtt for bilateral pulmonary emboli. Concern for new onset CHF with pulmonary emboli causing right heart strain. CXR continues to show worsening pleural effusion even with receiving IV lasix and monitoring renal function as creatinine is gradually increasing. Discussed diagnosis with patient and family, recommend transfer to higher level care facility. Consulted with multiple medical facilities about transfer for further cardiac workup and possible thrombolysis of pulmonary embolism if candidate. Pt accepted and will be transferred to [facility]. Vital Signs: Vital Signs (72 hours) 07/22/21 15:33 07/22/21 16:11 07/22/21 16:36 Temperature 97.7 F 97.7 F Pulse Rate 79 70 35 L Pulse Rate [Left Radial] 70 Pulse Rate [Right] Respiratory Rate 22 20 20 Blood Pressure 135/70 121/85 Blood Pressure [Left Arm] 121/85 Blood Pressure [Right Arm] O2 Sat by Pulse Oximetry 96 95 99 07/22/21 16:45 07/22/21 17:00 07/22/21 17:15 Temperature Pulse Rate 69 25 L 28 L Pulse Rate [Left Radial] Pulse Rate [Right] Respiratory Rate 25 H 26 H 23 Blood Pressure 120/58 Blood Pressure [Left Arm] Blood Pressure [Right Arm] O2 Sat by Pulse Oximetry 99 99 99 07/22/21 17:29 07/22/21 17:30 07/22/21 17:45 Temperature Pulse Rate 65 36 L 35 L Pulse Rate [Left Radial] Pulse Rate [Right] Respiratory Rate 18 25 H 21 Blood Pressure 120/58 135/58 Blood Pressure [Left Arm] Blood Pressure [Right Arm] O2 Sat by Pulse Oximetry 98 99 100 07/22/21 18:00 07/22/21 18:17 07/22/21 20:00 Temperature 97.9 F 97.7 F Pulse Rate 31 L Pulse Rate [Left Radial] Pulse Rate [Right] 84 82 Respiratory Rate 20 20 20 Blood Pressure 129/71 Blood Pressure [Left Arm] Blood Pressure [Right Arm] 141/75 136/69 O2 Sat by Pulse Oximetry 99 98 100 07/23/21 00:00 07/23/21 04:00 07/23/21 08:00 Temperature 97.7 F 97.6 F 97.5 F L Pulse Rate Pulse Rate [Left Radial] Pulse Rate [Right] 90 72 81 Respiratory Rate 18 20 20 Blood Pressure Blood Pressure [Left Arm] Blood Pressure [Right Arm] 117/75 121/66 135/70 O2 Sat by Pulse Oximetry 99 95 98 07/23/21 11:45 07/23/21 13:35 07/23/21 13:41 Temperature 98.0 F Pulse Rate 77 83 Pulse Rate [Left Radial] Pulse Rate [Right] 75 Respiratory Rate 20 24 25 H Blood Pressure 131/73 Blood Pressure [Left Arm] Blood Pressure [Right Arm] 123/72 O2 Sat by Pulse Oximetry 98 95 07/23/21 14:00 07/23/21 14:30 07/23/21 15:00 Temperature Pulse Rate 81 65 65 Pulse Rate [Left Radial] Pulse Rate [Right] Respiratory Rate 22 24 27 H Blood Pressure 133/82 123/82 96/66 Blood Pressure [Left Arm] Blood Pressure [Right Arm] O2 Sat by Pulse Oximetry 99 100 100 07/23/21 15:20 07/23/21 15:30 07/23/21 16:00 Temperature 97.1 F L Pulse Rate 70 74 76 Pulse Rate [Left Radial] Pulse Rate [Right] Respiratory Rate 26 H 24 30 H Blood Pressure 123/56 126/69 113/74 Blood Pressure [Left Arm] Blood Pressure [Right Arm] O2 Sat by Pulse Oximetry 100 99 99 07/23/21 16:30 07/23/21 17:00 07/23/21 17:30 Temperature Pulse Rate 74 74 83 Pulse Rate [Left Radial] Pulse Rate [Right] Respiratory Rate 28 H 29 H 29 H Blood Pressure 127/69 137/81 133/65 Blood Pressure [Left Arm] Blood Pressure [Right Arm] O2 Sat by Pulse Oximetry 100 100 99 07/23/21 18:13 07/23/21 18:16 07/23/21 19:00 Temperature Pulse Rate 85 79 79 Pulse Rate [Left Radial] Pulse Rate [Right] Respiratory Rate 28 H 24 22 Blood Pressure 126/69 139/68 Blood Pressure [Left Arm] Blood Pressure [Right Arm] O2 Sat by Pulse Oximetry 97 100 07/23/21 19:30 07/23/21 19:35 07/23/21 20:00 Temperature 97.7 F Pulse Rate 77 82 84 Pulse Rate [Left Radial] Pulse Rate [Right] Respiratory Rate 26 H 22 28 H Blood Pressure 139/68 124/67 Blood Pressure [Left Arm] Blood Pressure [Right Arm] O2 Sat by Pulse Oximetry 100 100 99 07/23/21 20:01 07/23/21 20:10 07/23/21 20:30 Temperature Pulse Rate 81 81 71 Pulse Rate [Left Radial] Pulse Rate [Right] Respiratory Rate 31 H 29 H 25 H Blood Pressure 152/105 124/67 119/97 Blood Pressure [Left Arm] Blood Pressure [Right Arm] O2 Sat by Pulse Oximetry 99 98 97 07/23/21 21:00 07/23/21 21:06 07/23/21 21:30 Temperature Pulse Rate 66 66 63 Pulse Rate [Left Radial] Pulse Rate [Right] Respiratory Rate 31 H 27 H 30 H Blood Pressure 130/59 130/59 Blood Pressure [Left Arm] Blood Pressure [Right Arm] O2 Sat by Pulse Oximetry 99 99 100 07/23/21 22:00 07/23/21 22:30 07/23/21 22:57 Temperature Pulse Rate 60 65 79 Pulse Rate [Left Radial] Pulse Rate [Right] Respiratory Rate 25 H 29 H 26 H Blood Pressure 118/68 118/68 Blood Pressure [Left Arm] Blood Pressure [Right Arm] O2 Sat by Pulse Oximetry 99 99 98 07/23/21 23:00 07/23/21 23:30 07/24/21 00:00 Temperature 97.7 F Pulse Rate 71 69 79 Pulse Rate [Left Radial] Pulse Rate [Right] Respiratory Rate 21 22 17 Blood Pressure 104/63 119/67 Blood Pressure [Left Arm] Blood Pressure [Right Arm] O2 Sat by Pulse Oximetry 99 99 99 07/24/21 00:30 07/24/21 01:00 07/24/21 01:30 Temperature Pulse Rate 70 60 69 Pulse Rate [Left Radial] Pulse Rate [Right] Respiratory Rate 18 17 29 H Blood Pressure 99/54 Blood Pressure [Left Arm] Blood Pressure [Right Arm] O2 Sat by Pulse Oximetry 96 89 L 99 07/24/21 02:00 07/24/21 02:30 07/24/21 03:00 Temperature Pulse Rate 62 85 61 Pulse Rate [Left Radial] Pulse Rate [Right] Respiratory Rate 29 H 20 22 Blood Pressure 117/74 118/77 Blood Pressure [Left Arm] Blood Pressure [Right Arm] O2 Sat by Pulse Oximetry 97 96 99 07/24/21 03:30 07/24/21 04:00 07/24/21 04:01 Temperature 98.0 F Pulse Rate 65 60 61 Pulse Rate [Left Radial] Pulse Rate [Right] Respiratory Rate 23 21 26 H Blood Pressure 119/79 119/79 Blood Pressure [Left Arm] Blood Pressure [Right Arm] O2 Sat by Pulse Oximetry 100 100 98 07/24/21 04:30 07/24/21 05:00 07/24/21 05:01 Temperature Pulse Rate 60 60 60 Pulse Rate [Left Radial] Pulse Rate [Right] Respiratory Rate 15 14 14 Blood Pressure 108/55 108/55 Blood Pressure [Left Arm] Blood Pressure [Right Arm] O2 Sat by Pulse Oximetry 94 L 91 L 93 L 07/24/21 05:30 07/24/21 06:00 07/24/21 06:01 Temperature Pulse Rate 60 67 63 Pulse Rate [Left Radial] Pulse Rate [Right] Respiratory Rate 19 16 18 Blood Pressure 119/90 138/93 Blood Pressure [Left Arm] Blood Pressure [Right Arm] O2 Sat by Pulse Oximetry 99 97 94 L 07/24/21 06:21 07/24/21 06:30 07/24/21 07:00 Temperature Pulse Rate 64 67 79 Pulse Rate [Left Radial] Pulse Rate [Right] Respiratory Rate 19 22 27 H Blood Pressure 119/90 Blood Pressure [Left Arm] Blood Pressure [Right Arm] O2 Sat by Pulse Oximetry 95 98 95 07/24/21 07:03 07/24/21 07:30 07/24/21 08:00 Temperature 98.0 F Pulse Rate 69 79 82 Pulse Rate [Left Radial] Pulse Rate [Right] Respiratory Rate 26 H 22 25 H Blood Pressure 129/65 142/87 Blood Pressure [Left Arm] Blood Pressure [Right Arm] O2 Sat by Pulse Oximetry 93 L 94 L 92 L 07/24/21 08:30 07/24/21 09:00 07/24/21 09:01 Temperature Pulse Rate 77 67 62 Pulse Rate [Left Radial] Pulse Rate [Right] Respiratory Rate 17 15 17 Blood Pressure 126/59 Blood Pressure [Left Arm] Blood Pressure [Right Arm] O2 Sat by Pulse Oximetry 92 L 93 L 92 L 07/24/21 09:30 07/24/21 10:00 07/24/21 10:30 Temperature Pulse Rate 68 79 79 Pulse Rate [Left Radial] Pulse Rate [Right] Respiratory Rate 16 24 23 Blood Pressure 145/66 Blood Pressure [Left Arm] Blood Pressure [Right Arm] O2 Sat by Pulse Oximetry 93 L 93 L 93 L 07/24/21 11:00 07/24/21 11:30 07/24/21 12:00 Temperature Pulse Rate 78 78 81 Pulse Rate [Left Radial] Pulse Rate [Right] Respiratory Rate 23 27 H 22 Blood Pressure 124/90 111/80 Blood Pressure [Left Arm] Blood Pressure [Right Arm] O2 Sat by Pulse Oximetry 92 L 94 L 94 L 07/24/21 12:30 07/24/21 13:00 07/24/21 13:30 Temperature Pulse Rate 75 60 61 Pulse Rate [Left Radial] Pulse Rate [Right] Respiratory Rate 22 20 21 Blood Pressure 116/86 Blood Pressure [Left Arm] Blood Pressure [Right Arm] O2 Sat by Pulse Oximetry 93 L 94 L 94 L 07/24/21 14:00 07/24/21 14:30 07/24/21 15:00 Temperature Pulse Rate 63 72 70 Pulse Rate [Left Radial] Pulse Rate [Right] Respiratory Rate 32 H 26 H 23 Blood Pressure 115/69 126/62 Blood Pressure [Left Arm] Blood Pressure [Right Arm] O2 Sat by Pulse Oximetry 92 L 95 91 L 07/24/21 15:30 07/24/21 16:00 07/24/21 16:30 Temperature Pulse Rate 65 77 69 Pulse Rate [Left Radial] Pulse Rate [Right] Respiratory Rate 29 H 28 H 23 Blood Pressure 134/69 Blood Pressure [Left Arm] Blood Pressure [Right Arm] O2 Sat by Pulse Oximetry 94 L 93 L 94 L 07/24/21 17:00 07/24/21 17:30 07/24/21 18:03 Temperature Pulse Rate 62 61 77 Pulse Rate [Left Radial] Pulse Rate [Right] Respiratory Rate 23 17 25 H Blood Pressure 117/70 Blood Pressure [Left Arm] Blood Pressure [Right Arm] O2 Sat by Pulse Oximetry 94 L 94 L 98 07/24/21 19:00 07/24/21 20:00 07/24/21 21:00 Temperature 98.1 F Pulse Rate 69 73 74 Pulse Rate [Left Radial] Pulse Rate [Right] Respiratory Rate 25 H 22 21 Blood Pressure 131/73 132/84 Blood Pressure [Left Arm] Blood Pressure [Right Arm] O2 Sat by Pulse Oximetry 94 L 93 L 97 07/24/21 22:00 07/24/21 23:00 Temperature Pulse Rate 73 61 Pulse Rate [Left Radial] Pulse Rate [Right] Respiratory Rate 25 H 23 Blood Pressure 138/70 135/61 Blood Pressure [Left Arm] Blood Pressure [Right Arm] O2 Sat by Pulse Oximetry 95 96 Labs: Laboratory Last Values WBC 7.2 X10^3/uL (3.6-10.0) 07/24/21 03:37 RBC 4.19 X10^6/uL (4.7-6.0) L 07/24/21 03:37 Hgb 12.3 g/dL (13.5-18.0) L 07/24/21 03:37 Hct 36.7 % (42.0-54.0) L 07/24/21 03:37 MCV 87.7 fL (80.0-100.0) 07/24/21 03:37 MCH 29.3 pg (27.0-34.0) 07/24/21 03:37 MCHC 33.4 g/dL (33.0-35.0) 07/24/21 03:37 RDW 14.2 % (11.6-16.5) 07/24/21 03:37 Plt Count 237 X10^3/uL (150.0-450.0) 07/24/21 03:37 MPV 8.3 fL (7.4-11.0) 07/24/21 03:37 Neut % (Auto) 64.5 % (42.0-75.0) 07/24/21 03:37 Lymph % (Auto) 17.3 % (21.0-51.0) L 07/24/21 03:37 [place] % (Auto) 14.4 % (0.0-13.0) H 07/24/21 03:37 Eos % (Auto) 2.7 % (0.9-2.9) 07/24/21 03:37 Baso % (Auto) 1.1 % (0.2-1.0) H 07/24/21 03:37 Neut # (Auto) 4.6 x10^3/uL (2.2-4.8) 07/24/21 03:37 Lymph # (Auto) 1.2 X10^3/uL (1.3-2.9) L 07/24/21 03:37 [place] # (Auto) 1.0 x10^3/uL (0.3-0.8) H 07/24/21 03:37 Eos # (Auto) 0.2 x10^3/uL (0.0-0.2) 07/24/21 03:37 Baso # (Auto) 0.1 X10^3/uL (0.0-0.1) 07/24/21 03:37 Absolute Nucleated RBC 0.0 /100WBC 07/24/21 03:37 PT 15.2 SECONDS (11.8-14.3) 07/23/21 12:54 INR Target Range - 07/23/21 12:54 INR 1.26 (0.8-1.3) 07/23/21 12:54 APTT 75.5 SECONDS (22.9-36.5) H 07/24/21 16:10 PTT Comment - 07/24/21 16:10 D-Dimer 1.01 ug/ml (0.0-0.57) H* 07/22/21 15:55 Sodium 137 mmol/L (136-145) 07/24/21 03:37 Corrected Sodium 138 mmol/L (136-145) 07/24/21 03:37 Potassium 4.2 mmol/L (3.5-5.1) 07/24/21 03:37 Chloride 99 mmol/L (98-107) 07/24/21 03:37 Carbon Dioxide 29.2 mmol/L (21-32) 07/24/21 03:37 BUN 31 mg/dL (7-18) H 07/24/21 03:37 Creatinine 1.75 mg/dL (0.70-1.30) H 07/24/21 03:37 Est GFR (MDRD) Af Amer 48 (>60) L 07/24/21 03:37 Est GFR (MDRD) Non-Af 39 (>60) L 07/24/21 03:37 Glucose 137 mg/dL (65-99) H 07/24/21 03:37 POC Glucose (mg/dL) 178 mg/dL (65-99) H 07/24/21 19:57 Calcium 8.3 mg/dL (8.5-10.1) L 07/24/21 03:37 Corrected Calcium 8.9 mg/dL (8.5-10.1) 07/24/21 03:37 Total Bilirubin 0.40 mg/dL (0.2-1.0) 07/24/21 03:37 AST 22 Units/L (15-37) 07/24/21 03:37 ALT 9 Units/L (12-78) L 07/24/21 03:37 Alkaline Phosphatase 113 Units/L (46-116) 07/24/21 03:37 Creatine Kinase 79 Units/L (39-308) 07/22/21 15:55 CK-MB (CK-2) 2.5 ng/mL (0-4.0) 07/22/21 15:55 CK/CKMB % Calc 3.2 % (<4) 07/22/21 15:55 Troponin I 0.03 ng/mL (0-1.5) 07/23/21 05:25 B-Natriuretic Peptide 2960 pg/mL (0-79) H* 07/22/21 15:55 Total Protein 6.3 g/dL (6.4-8.2) L 07/24/21 03:37 Albumin 3.3 g/dL (3.4-5.0) L 07/24/21 03:37 Globulin 3.0 g/dL (2.5-4.5) 07/24/21 03:37 Albumin/Globulin Ratio 1.1 Ratio (1.1-2.1) 07/24/21 03:37 SARS CoV-2 RNA Rapid AREN Negative (NEGATIVE) 07/22/21 16:30 Reason For Visit: BILATERAL PULMONARY EMOBOLISH, CHF, FLUID OVERLOAD Discharge Date Discharge Date: 07/24/21 Discharge Diagnosis All Active Problems (Updated 07/25/21 @ 09:53 by Luiz Buckley) Acute kidney injury (Acute) Pulmonary embolism (Acute) New onset of congestive heart failure (Acute) Congestive heart failure (Acute) Plan of Treatment: Continue with present treatment and follow up plan. Pt is to keep follow up appointment as instructed and take medications as ordered. Discharge Medications Discharge Medications: No Known Drug Allergies Allergy (Verified 07/12/21 11:32) CONTINUE taking the following medications amlodipine 5 mg PO DAILY 07/22/21 [History] dicyclomine 20 mg PO BID 07/22/21 [History] levothyroxine 75 mcg PO DAILY 07/22/21 [History] memantine 28 mg PO DAILY 07/22/21 [History] prasterone (dhea) [DHEA] 25 mg PO DAILY 07/22/21 [History] primidone 250 mg PO BID 07/22/21 [History] propranolol 20 mg PO BID 07/22/21 [History] rivastigmine 1 patch TRANSDERMAL ONCE 07/22/21 [History] rosuvastatin 10 mg PO DAILY 07/22/21 [History] sacubitril-valsartan [Entresto] 1 tab PO BID 07/22/21 [History] vitamin B60-[place]il acid 1 tab PO DAILY 07/22/21 [History] Discharge Disposition Discharge Disposition: Transfer to [facility] Discharge Condition: Stable Discharge Plan Discharge Plan Hospital Course: Pt is a 86 year old male past medical history of Pacemaker, Hypertension admitted with new onset CHF. Troponin negative, D-dimer elevated, CTA Chest revealed: positive for bibasilar pulmonary emboli in the lower lobes and right middle lobe. Cardiomegaly with right heart strain. There are large bilateral pleural effusions compressive atelectasis. Echo: EF 28%, severe decrease in global wall motion. He is currently receiving IV Lasix and was started on heparin gtt for bilateral pulmonary emboli. Concern for new onset CHF with pulmonary emboli causing right heart strain. CXR continues to show worsening pleural effusion even with receiving IV lasix and monitoring renal function as creatinine is gradually increasing. Discussed diagnosis with patient and family, recommend transfer to higher level care facility. Consulted with multiple medical facilities about transfer for further cardiac workup and possible thrombolysis of pulmonary embolism if candidate. Pt accepted and will be transferred to [facility]. Patient Disposition: [facility] HOSP Condition: Stable Health Concerns: Post Hospitalization: new medications and changes needed to prevent readmission or further decline. Pt educated and given instructions on all concerns. Plan of Treatment: Continue with present treatment and follow up plan. Pt is to keep follow up appointment as instructed and take medications as ordered. Prescriptions: No Action docusate sodium [Stool Softener] 100 mg capsule 100 mg PO BID RF: 0 carbidopa-levodopa 25-100 mg tablet 1 tab PO TID RF: 0 polyethylene glycol 3350 [ClearLax] 17 gram/dose powder 17 g PO HS RF: 0 Gi Cocktail 10 ml PO QID PRNQty: 240 RF: 0 DHEA 25 mg Tablet 25 mg PO DAILY RF: 0 amlodipine 5 mg Tablet 5 mg PO DAILY RF: 0 levothyroxine 75 mcg Tablet 75 mcg PO DAILY RF: 0 primidone 250 mg Tablet 250 mg PO BID RF: 0 dicyclomine 20 mg tablet 20 mg PO BID RF: 0 propranolol 20 mg Tablet 20 mg PO BID RF: 0 rosuvastatin 10 mg Tablet 10 mg PO DAILY RF: 0 rivastigmine 9.5 mg/24 hour Patch 24 Hour 1 patch TRANSDERMAL ONCE RF: 0 vitamin X71-fbmzy acid 500-400 mcg Tablet 1 tab PO DAILY RF: 0 memantine 28 mg capsule,sprinkle,ER 24hr 28 mg PO DAILY RF: 0 Entresto 24-26 mg Tablet 1 tab PO BID RF: 0 Orders to Discharge Patient Discharge Orders: Discharge by Transfer to Outside Facility (Routine); Ordered 07/25/21 Ordered By: Luiz Buckely Follow ups/Referrals Follow ups/Referrals: Michael Jung [Primary Care Provider] - 1 WEEK
--- NOTE | 2021-07-25 09:54 | PCM.PROG ---
Progress Note Progress Note for Day of Date of Exam: 07/24/21 Subjective Subjective: Pt is a 86 year old male past medical history of Pacemaker, Hypertension admitted with new onset CHF. Troponin negative, D-dimer elevated, CTA Chest revealed: positive for bibasilar pulmonary emboli in the lower lobes and right middle lobe. Cardiomegaly with right heart strain. There are large bilateral pleural effusions compressive atelectasis. Echo: EF 28%, severe decrease in global wall motion. He is currently receiving IV Lasix and was started on heparin gtt for bilateral pulmonary emboli. Concern for new onset CHF with pulmonary emboli causing right heart strain. CXR continues to show worsening pleural effusion even with receiving IV lasix and monitoring renal function as creatinine is gradually increasing. Discussed diagnosis with patient and family, recommend transfer to higher level care facility. Consulted with multiple medical facilities about transfer for further cardiac workup and possible thrombolysis of pulmonary embolism if candidate. Pt accepted and will be transferred to [facility]. Critical care time spent 30-74 minutes in clinical assessment, reviewing labs/imaging, decision making, and documentation. Past Medical Family Social History Past Med/Fam/Surg Hx: No changes since H&P Allergies: Allergies No Known Drug Allergies Allergy (Verified 07/12/21 11:32) Review of Systems ROS: No change since H&P Vital Signs and I&O's Vital Signs: Temperature 98.1 F Pulse Rate [Right] 75 Pulse Rate [Left Radial] 70 Pulse Rate 61 Respiratory Rate 23 Blood Pressure [Right Arm] 123/72 Blood Pressure [Left Arm] 121/85 Blood Pressure 135/61 O2 Sat by Pulse Oximetry 96 Intake and Output: Intake & Output 07/22/21 07/23/21 07/24/21 07/25/21 23:59 23:59 23:59 23:59 Intake Total 320 / 320 1113 / 1113 1283 / 1283 Balance 320 / 320 1113 / 1113 1283 / 1283 Physical Exam Oriented: Normal Eyes: Normal Ear: Normal Nose: Normal Throat: Normal Respiratory: Diminished and Rales Cardiovascular: Normal : Normal Auscultation: Bowel Sounds: Normal Tenderness: Normal Skin: Normal Musculoskeletal: Normal Psychiatric: Normal Mood Description: Calm and Appropriate Affect: Normal Speech Pattern: Clear and Appropriate Laboratory and Diagnostics Result Diagrams: 07/24/21 03:37 07/24/21 03:37 Labs: Laboratory WBC 7.2 X10^3/uL (3.6-10.0) 07/24/21 03:37 RBC 4.19 X10^6/uL (4.7-6.0) L 07/24/21 03:37 Hgb 12.3 g/dL (13.5-18.0) L 07/24/21 03:37 Hct 36.7 % (42.0-54.0) L 07/24/21 03:37 MCV 87.7 fL (80.0-100.0) 07/24/21 03:37 MCH 29.3 pg (27.0-34.0) 07/24/21 03:37 MCHC 33.4 g/dL (33.0-35.0) 07/24/21 03:37 RDW 14.2 % (11.6-16.5) 07/24/21 03:37 Plt Count 237 X10^3/uL (150.0-450.0) 07/24/21 03:37 MPV 8.3 fL (7.4-11.0) 07/24/21 03:37 Neut % (Auto) 64.5 % (42.0-75.0) 07/24/21 03:37 Lymph % (Auto) 17.3 % (21.0-51.0) L 07/24/21 03:37 [place] % (Auto) 14.4 % (0.0-13.0) H 07/24/21 03:37 Eos % (Auto) 2.7 % (0.9-2.9) 07/24/21 03:37 Baso % (Auto) 1.1 % (0.2-1.0) H 07/24/21 03:37 Neut # (Auto) 4.6 x10^3/uL (2.2-4.8) 07/24/21 03:37 Lymph # (Auto) 1.2 X10^3/uL (1.3-2.9) L 07/24/21 03:37 [place] # (Auto) 1.0 x10^3/uL (0.3-0.8) H 07/24/21 03:37 Eos # (Auto) 0.2 x10^3/uL (0.0-0.2) 07/24/21 03:37 Baso # (Auto) 0.1 X10^3/uL (0.0-0.1) 07/24/21 03:37 Absolute Nucleated RBC 0.0 /100WBC 07/24/21 03:37 PT 15.2 SECONDS (11.8-14.3) 07/23/21 12:54 INR Target Range - 07/23/21 12:54 INR 1.26 (0.8-1.3) 07/23/21 12:54 APTT 75.5 SECONDS (22.9-36.5) H 07/24/21 16:10 PTT Comment - 07/24/21 16:10 D-Dimer 1.01 ug/ml (0.0-0.57) H* 07/22/21 15:55 Sodium 137 mmol/L (136-145) 07/24/21 03:37 Corrected Sodium 138 mmol/L (136-145) 07/24/21 03:37 Potassium 4.2 mmol/L (3.5-5.1) 07/24/21 03:37 Chloride 99 mmol/L (98-107) 07/24/21 03:37 Carbon Dioxide 29.2 mmol/L (21-32) 07/24/21 03:37 BUN 31 mg/dL (7-18) H 07/24/21 03:37 Creatinine 1.75 mg/dL (0.70-1.30) H 07/24/21 03:37 Est GFR (MDRD) Af Amer 48 (>60) L 07/24/21 03:37 Est GFR (MDRD) Non-Af 39 (>60) L 07/24/21 03:37 Glucose 137 mg/dL (65-99) H 07/24/21 03:37 POC Glucose (mg/dL) 178 mg/dL (65-99) H 07/24/21 19:57 Calcium 8.3 mg/dL (8.5-10.1) L 07/24/21 03:37 Corrected Calcium 8.9 mg/dL (8.5-10.1) 07/24/21 03:37 Total Bilirubin 0.40 mg/dL (0.2-1.0) 07/24/21 03:37 AST 22 Units/L (15-37) 07/24/21 03:37 ALT 9 Units/L (12-78) L 07/24/21 03:37 Alkaline Phosphatase 113 Units/L (46-116) 07/24/21 03:37 Creatine Kinase 79 Units/L (39-308) 07/22/21 15:55 CK-MB (CK-2) 2.5 ng/mL (0-4.0) 07/22/21 15:55 CK/CKMB % Calc 3.2 % (<4) 07/22/21 15:55 Troponin I 0.03 ng/mL (0-1.5) 07/23/21 05:25 B-Natriuretic Peptide 2960 pg/mL (0-79) H* 07/22/21 15:55 Total Protein 6.3 g/dL (6.4-8.2) L 07/24/21 03:37 Albumin 3.3 g/dL (3.4-5.0) L 07/24/21 03:37 Globulin 3.0 g/dL (2.5-4.5) 07/24/21 03:37 Albumin/Globulin Ratio 1.1 Ratio (1.1-2.1) 07/24/21 03:37 SARS CoV-2 RNA Rapid AREN Negative (NEGATIVE) 07/22/21 16:30 Plan (1) New onset of congestive heart failure: Status: Acute Plan: Repeat troponin, IV Lasix 40mg daily Echo ordered (2) Pulmonary embolism: Status: Acute (3) Acute kidney injury: Status: Acute
== END 2021-07-25 00:05 | disposition short-term general hospital (02) | DRG 291 ==
LOC: MED/SURG 15:32 → ER 15:32 → MED/SURG 18:11 → ICU 07-23 13:15
PROVIDERS: ADMIT Internal Medicine; ATTEND Internal Medicine
DX: N17.8 Other acute kidney failure; I50.9 Heart failure, unspecified; J90 Pleural effusion, not elsewhere classified; R79.1 Abnormal coagulation profile; Z95.0 Presence of cardiac pacemaker; R26.89 Other abnormalities of gait and mobility; I26.99 Other pulmonary embolism without acute cor pulmonale; Z20.822 Contact with and (suspected) exposure to COVID-19; R07.89 Other chest pain; R06.02 Shortness of breath

== ENCOUNTER 2021-10-05 22:38 | Observation (INO) ==
--- NOTE | 2021-10-05 22:57 | DR.AMS ---
HPI Time Seen Time Seen by Provider: 10/05/21 22:56 HPI Comment HPI Comment: Pt has been confused, weak and feeling poorly for the past few days with worsening today; no fever, chills, cough PMH PMH Past Medical History: Hypertension Past Surgical History: Yes Surgical History: Other Family History Family Medical History: Diabetes Mellitus and Hypertension Social History Do you use any recreational Drugs:: No ROS Review of Systems Constitutional: No Symptoms Reported Eyes: No Symptoms Reported ENTM: No Symptoms Reported Respiratoy: No Symptoms Reported Cardiovascular: No Symptoms Reported Gastrointestinal/Abdominal: No Symptoms Reported Genitourinary: No Symptoms Reported Musculoskeletal: No Symptoms Reported Integumentary: No Symptoms Reported Hematologic/Lymphatic: No Symptoms Reported Endocrine: No Symptoms Reported PE Vitals Vital Signs: Temp Pulse Resp BP BP BP Pulse Ox 10/06/21 00:55 60 20 100 10/06/21 00:00 62 19 126/68 99 10/05/21 23:45 70 21 10/05/21 23:41 85 34 H 10/05/21 22:44 98.5 F 90 20 139/77 99 07/24/21 23:00 135/61 07/23/21 11:45 123/72 07/22/21 16:11 121/85 General Limitations: Language Barrier General Appearance: Alert Head Head Exam: Normal Inspection Eyes Eye exam: Normal Appearance ENT ENT Exam: Normal Exam External Ear Exam: Normal External Inspection Nose Exam: Normal Nose Exam Mouth Exam: Normal Inspection Throat Exam: Normal Inspection Neck Neck Exam: Normal Inspection Chest Chest Inspection: Normal Inspection Respiratory Respiratory Exam: Normal Lung Sounds Bilat Cardiovascular Cardiovascular Exam: Regular Rate and Normal Rhythm Abdominal Exam Abdominal Exam: Normal Inspection, Normal Bowel Sounds and Soft Extremities Extremities Exam: Normal Inspection Back Back Exam: Normal Inspection Psychological Psychiatric Exam: Normal Affect and Normal Mood Skin Skin Exam: Warm, Dry, Intact and Normal Color COURSE Reevaluation 1st: Unchanged ROR Labs Reviewed Result Diagrams: 10/05/21 23:05 10/05/21 23:05 Laboratory: WBC 3.9 X10^3/uL (3.6-10.0) 10/05/21 23:05 RBC 3.94 X10^6/uL (4.7-6.0) L 10/05/21 23:05 Hgb 11.5 g/dL (13.5-18.0) L 10/05/21 23:05 Hct 33.9 % (42.0-54.0) L 10/05/21 23:05 MCV 86.2 fL (80.0-100.0) 10/05/21 23:05 MCH 29.1 pg (27.0-34.0) 10/05/21 23:05 MCHC 33.8 g/dL (33.0-35.0) 10/05/21 23:05 RDW 19.0 % (11.6-16.5) H 10/05/21 23:05 Plt Count 168 X10^3/uL (150.0-450.0) 10/05/21 23:05 MPV 8.6 fL (7.4-11.0) 10/05/21 23:05 Neut % (Auto) 47.9 % (42.0-75.0) 10/05/21 23:05 Lymph % (Auto) 36.4 % (21.0-51.0) 10/05/21 23:05 [place] % (Auto) 12.8 % (0.0-13.0) 10/05/21 23:05 Eos % (Auto) 2.6 % (0.9-2.9) 10/05/21 23:05 Baso % (Auto) 0.3 % (0.2-1.0) 10/05/21 23:05 Neut # (Auto) 1.9 x10^3/uL (2.2-4.8) L 10/05/21 23:05 Lymph # (Auto) 1.4 X10^3/uL (1.3-2.9) 10/05/21 23:05 [place] # (Auto) 0.5 x10^3/uL (0.3-0.8) 10/05/21 23:05 Eos # (Auto) 0.1 x10^3/uL (0.0-0.2) 10/05/21 23:05 Baso # (Auto) 0.0 X10^3/uL (0.0-0.1) 10/05/21 23:05 Absolute Nucleated RBC 0.1 /100WBC 10/05/21 23:05 Sodium 137 mmol/L (136-145) 10/05/21 23:05 Corrected Sodium TNP 10/05/21 23:05 Potassium 4.1 mmol/L (3.5-5.1) 10/05/21 23:05 Chloride 106 mmol/L (98-107) 10/05/21 23:05 Carbon Dioxide 26.3 mmol/L (21-32) 10/05/21 23:05 BUN 26 mg/dL (7-18) H 10/05/21 23:05 Creatinine 1.54 mg/dL (0.70-1.30) H 10/05/21 23:05 Est GFR (MDRD) Af Amer 55 (>60) L 10/05/21 23:05 Est GFR (MDRD) Non-Af 46 (>60) L 10/05/21 23:05 Glucose 95 mg/dL (65-99) 10/05/21 23:05 Calcium 7.5 mg/dL (8.5-10.1) L 10/05/21 23:05 Corrected Calcium 8.1 mg/dL (8.5-10.1) L 10/05/21 23:05 Total Bilirubin 0.20 mg/dL (0.2-1.0) 10/05/21 23:05 AST 32 Units/L (15-37) 10/05/21 23:05 ALT 19 Units/L (12-78) 10/05/21 23:05 Alkaline Phosphatase 191 Units/L (46-116) H 10/05/21 23:05 Total Protein 6.7 g/dL (6.4-8.2) 10/05/21 23:05 Albumin 3.3 g/dL (3.4-5.0) L 10/05/21 23:05 Globulin 3.4 g/dL (2.5-4.5) 10/05/21 23:05 Albumin/Globulin Ratio 1.0 Ratio (1.1-2.1) L 10/05/21 23:05 Specimen Type Clean catch urine 10/05/21 23:54 Urine Color Yellow (YELLOW) 10/05/21 23:54 Urine Appearance Clear (CLEAR) 10/05/21 23:54 Urine pH 5.0 (5.0 - 8.0) 10/05/21 23:54 Ur Specific [place] 1.015 (1.000-1.030) 10/05/21 23:54 Urine Protein 2+ (NEGATIVE) 10/05/21 23:54 Urine Glucose (UA) Negative (NEGATIVE) 10/05/21 23:54 Urine Ketones Negative (NEGATIVE) 10/05/21 23:54 Urine Occult Blood 2+ (NEGATIVE) 10/05/21 23:54 Urine Nitrite Negative (NEGATIVE) 10/05/21 23:54 Urine Bilirubin Negative (NEGATIVE) 10/05/21 23:54 Urine Urobilinogen Normal (NORMAL) 10/05/21 23:54 Ur Leukocyte Esterase Negative (NEGATIVE) 10/05/21 23:54 Urine RBC None seen /HPF (0-3) 10/05/21 23:54 Urine WBC None seen /HPF (0-5) 10/05/21 23:54 Ur Squamous Epith Cells Few /HPF (NEGATIVE) 10/05/21 23:54 Urine Bacteria Negative /HPF (NEGATIVE) 10/05/21 23:54 Ur Culture Indicated? No/not indicated 10/05/21 23:54 SARS CoV-2 RNA Rapid AERN Negative (NEGATIVE) 10/05/21 23:54 XRAY XRAY Interpreted by: Radiologist X-ray Results: CT HEAD: 1. 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 2. No gross acute infarction seen; however, small or subtle acute infarctions can be obscured in this radiologic setting. Consider followup MRI with diffusion weighted imaging if clinically warranted. 3. Severe diffuse cerebral cortical atrophy in keeping with the patient's advanced age. Opioid Opioid Risk Tool Age (Adonis box if 16-45): No History of Preadolescent Sexual Abuse: No Total: 0 Total Score Risk Category: Low Risk Copyright: James ANTOINE predicting aberrant behaviors Diagnosis Discharge Problem: Dehydration Acute renal failure (ARF) Qualifiers: Acute renal failure type: unspecified Qualified Code(s): N17.9 - Acute kidney failure, unspecified AMS (altered mental status) Qualifiers: Altered mental status type: somnolence Qualified Code(s): R40.0 - Somnolence Instructions Forms: [facility] Patient Portal Social Distancing
[2021-10-05 23:18] LABS: BASOPHILS % (AUTO) 0.3 % (0.2-1.0); EOSINOPHILS # (AUTO) 0.1 x10^3/uL (0.0-0.2); EOSINOPHILS % (AUTO) 2.6 % (0.9-2.9); HEMATOCRIT 33.9 % (42.0-54.0); HEMOGLOBIN 11.5 g/dL (13.5-18.0); LYMPHOCYTES # (AUTO) 1.4 X10^3/uL (1.3-2.9); LYMPHOCYTES % (AUTO) 36.4 % (21.0-51.0); MEAN CORPUSCULAR HEMOGLOBIN 29.1 pg (27.0-34.0); MEAN CORPUSCULAR HGB CONC 33.8 g/dL (33.0-35.0); MEAN CORPUSCULAR VOLUME 86.2 fL (80.0-100.0); MEAN PLATELET VOLUME 8.6 fL (7.4-11.0); MONOCYTES # (AUTO) 0.5 x10^3/uL (0.3-0.8); MONOCYTES % (AUTO) 12.8 % (0.0-13.0); NEUTROPHILS # (AUTO) 1.9 x10^3/uL (2.2-4.8); NEUTROPHILS % (AUTO) 47.9 % (42.0-75.0); RED BLOOD COUNT 3.94 X10^6/uL (4.7-6.0); WHITE BLOOD COUNT 3.9 X10^3/uL (3.6-10.0)
[2021-10-05 23:29] LABS: ALANINE AMINOTRANSFERASE 19 Units/L (12-78); ALBUMIN 3.3 g/dL (3.4-5.0); ALKALINE PHOSPHATASE 191 Units/L (46-116); ASPARTATE AMINO TRANSFERASE 32 Units/L (15-37); BLOOD UREA NITROGEN 26 mg/dL (7-18); CALCIUM 7.5 mg/dL (8.5-10.1); CARBON DIOXIDE 26.3 mmol/L (21-32); CHLORIDE 106 mmol/L (98-107); COR CA(FOR HYPOALB) 8.1 mg/dL (8.5-10.1); CREATININE 1.54 mg/dL (0.70-1.30); SODIUM 137 mmol/L (136-145); TOTAL PROTEIN 6.7 g/dL (6.4-8.2); eGFR NON BLACK RACES 46 (>60)
--- NOTE | 2021-10-05 23:36 | CT ---
EXAM: HEAD CT WITHOUT INTRAVENOUS CONTRASTHISTORY: Altered mental status.TECHNIQUE: Spiral axial CT images are obtained through the brain without the administration of intravenous contrast. Sagittal and coronal images are reformatted.DOSIMETRY: Total DLP 1188.9 mGycm; CTDI 67.4 mGyCOMPARISON: None available.FINDINGS:There are patchy parenchymal lucencies seen throughout the white matter tracts of the centrum semiovale, consistent with chronic sequela of atherosclerotic microvascular ischemic disease. Please note that small or subtle acute infarction can be obscured in this radiologic setting. Consider followup MRI with diffusion weighted imaging if clinically warranted. There is no gross acute territorial infarction seen. Atherosclerosis of the carotid siphons is seen.There is severe diffuse cerebral cortical atrophy, in keeping with the patient's advanced age. There is no intra-axial or extra-axial hemorrhage seen. No intra-axial or extra-axial mass lesions are noted. There is no hydrocephalus. There is no midline shift or other mass effect seen. The calvarium is intact. The partially imaged paranasal sinuses, middle ear cavities and mastoid air cells are clear.IMPRESSION:1. 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 No gross acute infarction seen; however, small or subtle acute infarctions can be obscured in this radiologic setting. Consider followup MRI with diffusion weighted imaging if clinically warranted.3. Severe diffuse cerebral cortical atrophy in keeping with the patient's advanced age.Electronically signed by: Titus [place] (Oct 05, 2021 23:35:33)
[2021-10-05] MEDS ORDERED: NS 1,000 ML IV 1,000 ML IV SCH (23:45)
[2021-10-05] MEDS ORDERED: NS 1,000 ML IV 1,000 ML ONE (23:57)
[2021-10-06 00:29] LABS: BILIRUBIN,URINE NEGATIVE (NEGATIVE); BLOOD/HEMOGLOBIN,URINE 2+ (NEGATIVE); GLUCOSE, URINE NEGATIVE (NEGATIVE); KETONES,URINE NEGATIVE (NEGATIVE); LEUKOCYTE ESTERASE ,URINE NEGATIVE (NEGATIVE); NITRITES,URINE NEGATIVE (NEGATIVE); PROTEIN,URINE 2+ (NEGATIVE); UROBILINOGEN,URINE NORMAL (NORMAL)
[2021-10-06 00:40] LABS: APPEARANCE,URINE CLEAR (CLEAR); BACTERIA,URINE NEGATIVE /HPF (NEGATIVE); COLOR,URINE YELLOW (YELLOW); RBC,URINE NONE SEEN /HPF (0-3); SQUAMOUS EPITHELIAL CELL,UR FEW /HPF (NEGATIVE)
[2021-10-06 01:00] VITALS: BMI 23.6
[2021-10-06] MEDS ORDERED: NS 1,000 ML IV 1,000 ML IV SCH (02:00)
[2021-10-06 05:04] LABS: ALANINE AMINOTRANSFERASE 18 Units/L (12-78); ALKALINE PHOSPHATASE 183 Units/L (46-116); ASPARTATE AMINO TRANSFERASE 30 Units/L (15-37); BLOOD UREA NITROGEN 25 mg/dL (7-18); CALCIUM 7.3 mg/dL (8.5-10.1); CHLORIDE 113 mmol/L (98-107); COR CA(FOR HYPOALB) 8.1 mg/dL (8.5-10.1); CREATININE 1.41 mg/dL (0.70-1.30); SODIUM 146 mmol/L (136-145); TOTAL PROTEIN 6.1 g/dL (6.4-8.2); eGFR NON BLACK RACES 51 (>60)
--- NOTE | 2021-10-06 10:39 | DR.H&P ---
H&P - History & Physical for Day of: H&P Date: 10/06/21 - Chief Complaint Chief Complaint: CONFUSION, WEAKNESS, LOW BLOOD PRESSURE - History of Present Illness History of Present Illness: TIME SPENT ON CLINICAL ASSESSMENT, REVIEWING LABS AND IMAGING, DECISION MAKING, AND DOCUMENTATION GREATER THAN 75 MINUTES. - Past Medical History Past Medical History: CHF, Dementia, Dyslipidemia, Hypertension, Hypothyroidism, Renal Disease Additional Medical History: BPH - Past Surgical History Surgical History: Abdominal Surgery, Bowel Resection, Ortho Surgery - Family History Family Medical History: Diabetes Mellitus, Hypertension - Social History Does patient currently use any type of tobacco product: No Have you used tobacco products in the last 12 months: No Type of Tobacco Use: None Does any household member use tobacco: No Alcohol Use: None Drug Use: None - Medications Home Medications: No Known Drug Allergies Allergy (Verified 07/12/21 11:32) CONTINUE taking the following medications apixaban [Eliquis] 2.5 mg PO BID 10/05/21 [History] carvedilol 3.125 mg PO BID 10/05/21 [History] cyanocobalamin (vitamin B-12) [Vitamin B-12] 5,000 mcg PO DAILY 10/05/21 [History] furosemide 40 mg PO BID PRN 10/05/21 [History] - Review of Systems Constitutional: Weakness Eyes: No Symptoms Reported ENT: No Symptoms Reported Respiratory: No Symptoms Reported Cardiovascular: No Symptoms Reported Gastrointestinal: No Symptoms Reported Genitourinary: No Symptoms Reported Musculoskeletal: No Symptoms Reported Skin: No Symptoms Reported Neurological: See HPI, Weakness, Confusion - Physical Exam Vital Signs: Temperature 97.7 F Pulse Rate [Right Brachial] 62 Pulse Rate 60 Respiratory Rate 36 Blood Pressure [Right Arm] 141/61 Blood Pressure [Left Arm] 121/85 Blood Pressure 153/114 O2 Sat by Pulse Oximetry 98 Oriented: Not Oriented Eyes: Normal Ear: Normal Nose: Normal Throat: Normal Respiratory: Diminished Throughout Cardiovascular: Normal : Normal Auscultation: Bowel Sounds: Normal Palpation: Normal Tenderness: Normal Skin: Decreased [place] Musculoskeletal: Normal Psychiatric: Other (LETHARGIC ) Mood Description: Calm Affect: Normal Speech Pattern: Inappropriate - Assessment/Plan (1) Dehydration Status: Acute Plan: ADMIT, 1/2 NS AT 80 ML/HR, RESUME HOME MEDS (2) Acute renal failure (ARF) Qualifiers: Acute renal failure type: unspecified Qualified Code(s): N17.9 - Acute kidney failure, unspecified Status: Acute (3) AMS (altered mental status) Qualifiers: Altered mental status type: somnolence Qualified Code(s): R40.0 - Somnolence Status: Acute (4) Hypertension Qualifiers: Hypertension type: primary hypertension Qualified Code(s): I10 - Essential (primary) hypertension Status: Chronic (5) Dementia Qualifiers: Dementia type: unspecified type Dementia behavioral disturbance: without behavioral disturbance Qualified Code(s): F03.90 - Unspecified dementia without behavioral disturbance Status: Chronic (6) Hyperlipidemia Qualifiers: Hyperlipidemia type: mixed hyperlipidemia Qualified Code(s): E78.2 - Mixed hyperlipidemia Status: Chronic (7) Hypothyroidism Qualifiers: Hypothyroidism type: acquired Qualified Code(s): E03.9 - Hypothyroidism, unspecified Status: Chronic (8) Congestive heart failure Qualifiers: Heart failure type: unspecified Heart failure chronicity: chronic Qualified Code(s): I50.9 - Heart failure, unspecified Status: Chronic - Allergies Allergies/Adverse Reactions: Allergies Allergy/AdvReac Type Severity Reaction Status Date / Time No Known Drug Allergies Allergy Verified 07/12/21 11:32
[2021-10-06] MEDS ORDERED: MEMANTINE 28 MG PO SCH (10:45)
[2021-10-06] MEDS ORDERED: PRASTERONE 25 MG PO SCH (10:45)
[2021-10-06] MEDS: NS 1/2 1,000 ML IV 1,000 ML IV SCH ×2 (10:59→22:23)
[2021-10-06] MEDS: MYSOLINE TAB 250 MG PO SCH ×2 (11:09→20:53)
[2021-10-06] MEDS: VITAMIN B-12 PO SCH (11:09)
[2021-10-06] MEDS: ELIQUIS PO SCH ×2 (11:10→20:52)
[2021-10-06] MEDS: SYNTHROID 75 mcg TAB PO SCH (11:10)
[2021-10-06] MEDS: SINEMET (PLAIN) 25/100 MG PO SCH ×2 (11:10→20:53)
[2021-10-06] MEDS ORDERED: ELIQUIS ONE (11:10)
[2021-10-06] MEDS: CRESTOR TAB 10 MG PO SCH (11:10)
[2021-10-06] MEDS ORDERED: NS 1/2 1,000 ML IV 1,000 ML IV ONE (22:11)
[2021-10-07 06:28] LABS: BASOPHILS % (AUTO) 0.4 % (0.2-1.0); EOSINOPHILS # (AUTO) 0.1 x10^3/uL (0.0-0.2); EOSINOPHILS % (AUTO) 1.6 % (0.9-2.9); HEMATOCRIT 32.3 % (42.0-54.0); HEMOGLOBIN 10.9 g/dL (13.5-18.0); LYMPHOCYTES # (AUTO) 1.2 X10^3/uL (1.3-2.9); LYMPHOCYTES % (AUTO) 23.3 % (21.0-51.0); MEAN CORPUSCULAR HEMOGLOBIN 29.5 pg (27.0-34.0); MEAN CORPUSCULAR HGB CONC 33.9 g/dL (33.0-35.0); MONOCYTES # (AUTO) 0.6 x10^3/uL (0.3-0.8); MONOCYTES % (AUTO) 11.4 % (0.0-13.0); NEUTROPHILS # (AUTO) 3.1 x10^3/uL (2.2-4.8); NEUTROPHILS % (AUTO) 63.3 % (42.0-75.0); RED BLOOD COUNT 3.71 X10^6/uL (4.7-6.0)
[2021-10-07 06:29] LABS: ALANINE AMINOTRANSFERASE 11 Units/L (12-78); ALKALINE PHOSPHATASE 184 Units/L (46-116); ASPARTATE AMINO TRANSFERASE 28 Units/L (15-37); BLOOD UREA NITROGEN 24 mg/dL (7-18); CALCIUM 7.2 mg/dL (8.5-10.1); CARBON DIOXIDE 23.4 mmol/L (21-32); CHLORIDE 113 mmol/L (98-107); SODIUM 145 mmol/L (136-145); eGFR NON BLACK RACES 51 (>60)
[2021-10-07] MEDS: CRESTOR TAB 10 MG PO SCH (09:31)
[2021-10-07] MEDS: ELIQUIS PO SCH ×2 (09:31→21:35)
[2021-10-07] MEDS: MYSOLINE TAB 250 MG PO SCH ×2 (09:31→21:44)
[2021-10-07] MEDS: SINEMET (PLAIN) 25/100 MG PO SCH ×2 (09:32→21:35)
[2021-10-07] MEDS: VITAMIN B-12 PO SCH (09:32)
[2021-10-07] MEDS: SYNTHROID 75 mcg TAB PO SCH (09:32)
[2021-10-07] MEDS: ENTRESTO 24/26 MG TAB PO SCH (09:37)
--- NOTE | 2021-10-07 09:54 | PCM.PROG ---
Progress Note - Progress Note for Day of Date of Exam: 10/07/21 - Subjective Subjective: IS BEING TREATED FOR DEHYDRATION, ACUTE RENAL FAILURE, AND ALTERED MENTAL STATUS. TODAY, HE IS ALERT AND ORIENTED, LYING IN BED ON MORNING ROUNDS. HE ANSWERS QUESTIONS AND FOLLOWS COMMANDS APPROPRIATELY. HIS SPOUSE REPORTS THAT HE HAS BEEN MUCH MORE ALERT, BUT CONTINUES WITH WEAKNESS AND CONFUSION AT TIMES. ON EXAMINATION, HEART IS REGULAR IN RATE AND RHYTHM. BILATERAL LUNGS ARE CLEAR TO AUSCULTATION. ABDOMEN IS ROUND, SOFT, AND NON- TENDER WITH NORMAL BOWEL SOUNDS NOTED IN ALL QUADRANTS. HIS VITALS THIS MORNING ARE: 98.2-70-16-94%-149/90. LABS WERE OBTAINED. ABNORMAL LAB VALUES INCLUDE THE FOLLOWING: RBC 3.71, HGB 10.9, HCT 32.3, CHLORIDE 113, BUN 24, CREATININE 1.4, CALCIUM 7.2, ALT 11, ALK PHOS 184, TOTAL PROTEIN 6.0, ALBUMIN 3.0. HE IS CURRENTLY RECEIVING 1/2NS AT 80 ML/HR, ELIQUIS 2.5MG PO BID, SINEMET BID, VITAMIN B12 2500MCG PO DAILY, SYNTHROID 75MCG PO DAILY, PRIMIDONE 250MG PO BID, CRESTOR 10MG PO DAILY. TODAY, WE WILL RESTART ENTRESTO 24/26MG 0.5TAB PO DAILY AND COREG 3.125MG PO HS. PHYSICAL THERAPY WILL WORK WITH PATIENT DAILY. OTHERWISE, WE WILL CONTINUE WITH CURRENT PLAN OF CARE. WE PLAN TO FOLLOW UP WITH AM LABS AND CONTINUE TO MONITOR. TIME SPENT ON CLINICAL ASSESSMENT, REVIEWING LABS AND IMAGING, DECISION MAKING, AND DOCUMENTATION GREATER THAN 45 MINUTES. - Past Medical Family Social History Past Med/Fam/Surg Hx: No changes since H&P Allergies: Allergies No Known Drug Allergies Allergy (Verified 07/12/21 11:32) - Review of Systems ROS: No change since H&P - Vital Signs and I&O's Vital Signs: Temperature 98.2 F Pulse Rate [Right Brachial] 62 Pulse Rate 70 Respiratory Rate 16 Blood Pressure [Right Arm] 141/61 Blood Pressure [Left Arm] 121/85 Blood Pressure 149/90 O2 Sat by Pulse Oximetry 94 Intake and Output: Intake & Output 10/04/21 10/05/21 10/06/21 10/07/21 11:59 11:59 11:59 11:59 Intake Total 721 / 721 2358 / 2358 Output Total 200 / 200 Balance 521 / 521 2357 - Physical Exam Oriented: Not Oriented Eyes: Normal Ear: Normal Nose: Normal Throat: Normal Respiratory: Normal Cardiovascular: Normal : Normal Auscultation: Bowel Sounds: Normal Palpation: Normal Tenderness: Normal Skin: Decreased [place] Musculoskeletal: Normal Psychiatric: Other (LETHARGIC ) Mood Description: Calm Affect: Normal Speech Pattern: Appropriate - Laboratory and Diagnostics Result Diagrams: 10/07/21 03:54 10/07/21 03:54 Labs: Laboratory WBC 5.0 X10^3/uL (3.6-10.0) 10/07/21 03:54 RBC 3.71 X10^6/uL (4.7-6.0) L 10/07/21 03:54 Hgb 10.9 g/dL (13.5-18.0) L 10/07/21 03:54 Hct 32.3 % (42.0-54.0) L 10/07/21 03:54 MCV 87.0 fL (80.0-100.0) 10/07/21 03:54 MCH 29.5 pg (27.0-34.0) 10/07/21 03:54 MCHC 33.9 g/dL (33.0-35.0) 10/07/21 03:54 RDW 19.0 % (11.6-16.5) H 10/07/21 03:54 Plt Count 153 X10^3/uL (150.0-450.0) 10/07/21 03:54 MPV 9.0 fL (7.4-11.0) 10/07/21 03:54 Neut % (Auto) 63.3 % (42.0-75.0) 10/07/21 03:54 Lymph % (Auto) 23.3 % (21.0-51.0) 10/07/21 03:54 [place] % (Auto) 11.4 % (0.0-13.0) 10/07/21 03:54 Eos % (Auto) 1.6 % (0.9-2.9) 10/07/21 03:54 Baso % (Auto) 0.4 % (0.2-1.0) 10/07/21 03:54 Neut # (Auto) 3.1 x10^3/uL (2.2-4.8) 10/07/21 03:54 Lymph # (Auto) 1.2 X10^3/uL (1.3-2.9) L 10/07/21 03:54 [place] # (Auto) 0.6 x10^3/uL (0.3-0.8) 10/07/21 03:54 Eos # (Auto) 0.1 x10^3/uL (0.0-0.2) 10/07/21 03:54 Baso # (Auto) 0.0 X10^3/uL (0.0-0.1) 10/07/21 03:54 Absolute Nucleated RBC 0.2 /100WBC 10/07/21 03:54 Sodium 145 mmol/L (136-145) 10/07/21 03:54 Corrected Sodium TNP 10/07/21 03:54 Potassium 4.3 mmol/L (3.5-5.1) 10/07/21 03:54 Chloride 113 mmol/L (98-107) H 10/07/21 03:54 Carbon Dioxide 23.4 mmol/L (21-32) 10/07/21 03:54 BUN 24 mg/dL (7-18) H 10/07/21 03:54 Creatinine 1.40 mg/dL (0.70-1.30) H 10/07/21 03:54 Est GFR (MDRD) Af Amer > 60 (>60) 10/07/21 03:54 Est GFR (MDRD) Non-Af 51 (>60) L 10/07/21 03:54 Glucose 94 mg/dL (65-99) 10/07/21 03:54 Calcium 7.2 mg/dL (8.5-10.1) L 10/07/21 03:54 Corrected Calcium 8.0 mg/dL (8.5-10.1) L 10/07/21 03:54 Total Bilirubin 0.30 mg/dL (0.2-1.0) 10/07/21 03:54 AST 28 Units/L (15-37) 10/07/21 03:54 ALT 11 Units/L (12-78) L 10/07/21 03:54 Alkaline Phosphatase 184 Units/L (46-116) H 10/07/21 03:54 Total Protein 6.0 g/dL (6.4-8.2) L 10/07/21 03:54 Albumin 3.0 g/dL (3.4-5.0) L 10/07/21 03:54 Globulin 3.0 g/dL (2.5-4.5) 10/07/21 03:54 Albumin/Globulin Ratio 1.0 Ratio (1.1-2.1) L 10/07/21 03:54 Specimen Type Clean catch urine 10/05/21 23:54 Urine Color Yellow (YELLOW) 10/05/21 23:54 Urine Appearance Clear (CLEAR) 10/05/21 23:54 Urine pH 5.0 (5.0 - 8.0) 10/05/21 23:54 Ur Specific [place] 1.015 (1.000-1.030) 10/05/21 23:54 Urine Protein 2+ (NEGATIVE) 10/05/21 23:54 Urine Glucose (UA) Negative (NEGATIVE) 10/05/21 23:54 Urine Ketones Negative (NEGATIVE) 10/05/21 23:54 Urine Occult Blood 2+ (NEGATIVE) 10/05/21 23:54 Urine Nitrite Negative (NEGATIVE) 10/05/21 23:54 Urine Bilirubin Negative (NEGATIVE) 10/05/21 23:54 Urine Urobilinogen Normal (NORMAL) 10/05/21 23:54 Ur Leukocyte Esterase Negative (NEGATIVE) 10/05/21 23:54 Urine RBC None seen /HPF (0-3) 10/05/21 23:54 Urine WBC None seen /HPF (0-5) 10/05/21 23:54 Ur Squamous Epith Cells Few /HPF (NEGATIVE) 10/05/21 23:54 Urine Bacteria Negative /HPF (NEGATIVE) 10/05/21 23:54 Ur Culture Indicated? No/not indicated 10/05/21 23:54 SARS CoV-2 RNA Rapid AREN Negative (NEGATIVE) 10/05/21 23:54 - Plan (1) Dehydration Status: Acute Plan: 1/2 NS AT 80 ML/HR, RESUME HOME MEDS (2) Acute renal failure (ARF) Status: Acute Qualifiers: Acute renal failure type: unspecified Qualified Code(s): N17.9 - Acute kidney failure, unspecified (3) AMS (altered mental status) Status: Acute Qualifiers: Altered mental status type: somnolence Qualified Code(s): R40.0 - Somnolence (4) Hypertension Status: Chronic Qualifiers: Hypertension type: primary hypertension Qualified Code(s): I10 - Essential (primary) hypertension (5) Dementia Status: Chronic Qualifiers: Dementia type: unspecified type Dementia behavioral disturbance: without behavioral disturbance Qualified Code(s): F03.90 - Unspecified dementia without behavioral disturbance (6) Hyperlipidemia Status: Chronic Qualifiers: Hyperlipidemia type: mixed hyperlipidemia Qualified Code(s): E78.2 - Mixed hyperlipidemia (7) Hypothyroidism Status: Chronic Qualifiers: Hypothyroidism type: acquired Qualified Code(s): E03.9 - Hypothyroidism, unspecified (8) Congestive heart failure Status: Chronic Qualifiers: Heart failure type: unspecified Heart failure chronicity: chronic Qualified Code(s): I50.9 - Heart failure, unspecified
[2021-10-07] MEDS: NS 1/2 1,000 ML IV 1,000 ML IV SCH ×2 (11:43→14:26)
[2021-10-07] MEDS ORDERED: NS 1/2 1,000 ML IV 1,000 ML IV ONE (14:06)
[2021-10-07] MEDS ORDERED: COREG TAB 3.125 MG PO SCH (21:00)
[2021-10-08] MEDS ORDERED: NS 1/2 1,000 ML IV 1,000 ML IV ONE (02:13)
[2021-10-08] MEDS: NS 1/2 1,000 ML IV 1,000 ML IV SCH (02:35)
[2021-10-08 05:59] LABS: BASOPHILS % (AUTO) 0.5 % (0.2-1.0); EOSINOPHILS # (AUTO) 0.1 x10^3/uL (0.0-0.2); EOSINOPHILS % (AUTO) 2.2 % (0.9-2.9); HEMATOCRIT 33.5 % (42.0-54.0); HEMOGLOBIN 11.3 g/dL (13.5-18.0); LYMPHOCYTES # (AUTO) 1.2 X10^3/uL (1.3-2.9); LYMPHOCYTES % (AUTO) 21.7 % (21.0-51.0); MEAN CORPUSCULAR HEMOGLOBIN 29.4 pg (27.0-34.0); MEAN CORPUSCULAR HGB CONC 33.8 g/dL (33.0-35.0); MEAN PLATELET VOLUME 8.4 fL (7.4-11.0); MONOCYTES # (AUTO) 0.6 x10^3/uL (0.3-0.8); MONOCYTES % (AUTO) 11.1 % (0.0-13.0); NEUTROPHILS # (AUTO) 3.5 x10^3/uL (2.2-4.8); NEUTROPHILS % (AUTO) 64.5 % (42.0-75.0); RED BLOOD COUNT 3.85 X10^6/uL (4.7-6.0); RED CELL DISTRIBUTION WIDTH 19.4 % (11.6-16.5); WHITE BLOOD COUNT 5.4 X10^3/uL (3.6-10.0)
[2021-10-08 06:25] LABS: ALANINE AMINOTRANSFERASE 10 Units/L (12-78); ALBUMIN 3.2 g/dL (3.4-5.0); ALKALINE PHOSPHATASE 196 Units/L (46-116); ASPARTATE AMINO TRANSFERASE 25 Units/L (15-37); BLOOD UREA NITROGEN 22 mg/dL (7-18); CALCIUM 7.6 mg/dL (8.5-10.1); CARBON DIOXIDE 21.4 mmol/L (21-32); CHLORIDE 113 mmol/L (98-107); COR CA(FOR HYPOALB) 8.2 mg/dL (8.5-10.1); CREATININE 1.48 mg/dL (0.70-1.30); SODIUM 144 mmol/L (136-145); TOTAL PROTEIN 6.3 g/dL (6.4-8.2); eGFR NON BLACK RACES 48 (>60)
--- NOTE | 2021-10-08 06:43 | RAD ---
HISTORYWheezing, shortness of breathSTUDYChest AP [id number]/27/2021FINDINGSTher e is a pacemaker present in the left axilla. The heart is enlarged. Mild pulmonary venous congestion is present. No interstitial edema, alveolar edema, alveolar infiltrates or areas of consolidation. Small right pleural effusion may be present. Bony thorax is unremarkable.IMPRESSIONCardiomegaly with pulmonary venous congestionNo infiltratesSuspect very small right pleural effusionElectronically signed by: ADONIS VARGAS (Oct 08, 2021 06:42:20)
[2021-10-08] MEDS: CRESTOR TAB 10 MG PO SCH (08:46)
[2021-10-08] MEDS: ELIQUIS PO SCH (08:47)
[2021-10-08] MEDS: ENTRESTO 24/26 MG TAB PO SCH (08:48)
[2021-10-08] MEDS: MYSOLINE TAB 250 MG PO SCH (08:49)
[2021-10-08] MEDS: SINEMET (PLAIN) 25/100 MG PO SCH (08:49)
[2021-10-08] MEDS: SYNTHROID 75 mcg TAB PO SCH (08:49)
[2021-10-08] MEDS: VITAMIN B-12 PO SCH (08:50)
[2021-10-08 09:34] VITALS: BP 129/61
== END 2021-10-08 11:00 | disposition home or self-care (01) ==
LOC: U 22:44 → ER 22:44 → U 10-06 01:14 → MED/SURG 10-06 14:38
PROVIDERS: ADMIT Internal Medicine; ATTEND Internal Medicine
DX: E86.0 Dehydration; Z95.0 Presence of cardiac pacemaker; F03.90 Unspecified dementia, unspecified severity, without behavioral disturbance, psychotic disturbance, mood disturbance, and anxiety; N17.8 Other acute kidney failure; R06.2 Wheezing; E03.8 Other specified hypothyroidism; R40.0 Somnolence; Z20.822 Contact with and (suspected) exposure to COVID-19; I95.89 Other hypotension; R26.89 Other abnormalities of gait and mobility; I10 Essential (primary) hypertension; I25.89 Other forms of chronic ischemic heart disease

== ENCOUNTER 2021-12-14 12:59 | Inpatient (IN) ==
[2021-12-14] MEDS ORDERED: NS 500 ML IV 500 ML IV ONE ×3 (13:26→16:18)
--- NOTE | 2021-12-14 13:29 | DR.DIZZY ---
HPI Time seen Time Seen by Provider: 12/14/21 13:15 Complaint Chief Complaint Doctor Comments: 86 y/o male, brought in by spouse for evaluation. Was d/c'd from [facility] about 2 weeks ago for CHF. Has a h/o cardiomyopathy, poor EF, has a pacemaker. Was doing well until yesterday. Stopped eating yesterday, with decreased activity. Pt more somnolent today. Has had a loose cough. No report of fever, chest pain, shortness of breath, vomiting or diarrhea. Pt has a h/o dementia. Pt currently arousable, but non verbal. COVID-19 Coronavirus risk:travel/contact w/high risk person: No Has patient experienced Coronavirus symptoms: No Nurses Notes Reviewed Nurses Notes Review: Yes Source History Provided: Significant Other Mode of Arrival Mode of Arrival: Wheelchair Timing Came on: Gradually Duration Duration: Since Onset Context Stroke Symptoms: None PMH PMH Past Medical History: CHF, Dementia, Dyslipidemia, Hypertension, Hypothyroidism and Renal Disease Past Surgical History: Yes Surgical History: Abdominal Surgery, Bowel Resection and Ortho Surgery Family History Family Medical History: Diabetes Mellitus and Hypertension Social History Do you use any recreational Drugs:: No Travel Risk Coronavirus risk:travel/contact w/high risk person: No Has patient experienced Coronavirus symptoms: No ROS Review of Systems Unable to Obtain Due To: Altered mental status PE Vital Signs Vitals: Temperature 97.8 F Pulse Rate 104 Respiratory Rate 22 Blood Pressure [Right Arm] 141/61 Blood Pressure [Left Arm] 121/85 Blood Pressure 97/61 O2 Sat by Pulse Oximetry 95 General Limitations: Altered Mental Status General Appearance: Other (somnolent, arouses to stimuli, but non verbal, drifts back off) Head Head Exam: Normal Inspection, Atraumatic and Normocephalic Eyes Eye exam: PERRL ENT ENT Exam: Other (dry mucous membranes) Chest Chest Inspection: Normal Inspection Respiratory Respiratory Exam: Other (+ bilateral rales, R > L) Cardiovascular Cardiovascular Exam: Irregular Rhythm (+frequent ectopy) Abdominal Exam Abdominal Exam: Normal Bowel Sounds and Soft; negative Tenderness Extremeties Extremities Exam: Edema (1-2+ of lower exts) Neurologic Neurological Exam: Other (+ somnolent, arousable, but drifts off quickly, + generalized weakness.) Skin Skin Exam: Warm and Dry MDM Differential Diagnosis Differential Diagnosis: CVA, Dehydration and Other (CHF, pneumonia, sepsis) COURSE Treatment Treatment: 86 y/o male with h/o cardiomyopathy, CHF, dementia, brought in with decreased activity level, decreased po intake since yesterday. W/u initiated. 1432 - about the same. CXR with changes cw CHF, BNP markedly elevated at 2,540. Cr elevated 2.31, last 1.48 2 months ago. Clinically with CHF, dehydration. Pt given IV NS, and IV lasix. Will place a Teixeira as pt not alert enpough to use the bathroom/urinal. Call put out to discuss with Dr Jung, his PCP. 1500 - discuss ed with Dr Jung, will admit. 1539 - + UTI on urine via catheter. Will treat with IV Rocephin. ROR Labs Reviewed Laboratory Results Reviewed?: Yes Result Diagrams: 12/14/21 13:10 12/14/21 13:10 Laboratory: WBC 8.2 X10^3/uL (3.6-10.0) 12/14/21 13:10 RBC 4.73 X10^6/uL (4.7-6.0) 12/14/21 13:10 Hgb 13.8 g/dL (13.5-18.0) 12/14/21 13:10 Hct 41.8 % (42.0-54.0) L 12/14/21 13:10 MCV 88.4 fL (80.0-100.0) 12/14/21 13:10 MCH 29.1 pg (27.0-34.0) 12/14/21 13:10 MCHC 32.9 g/dL (33.0-35.0) L 12/14/21 13:10 RDW 16.6 % (11.6-16.5) H 12/14/21 13:10 Plt Count 187 X10^3/uL (150.0-450.0) 12/14/21 13:10 MPV 10.7 fL (7.4-11.0) 12/14/21 13:10 Neut % (Auto) 74.6 % (42.0-75.0) 12/14/21 13:10 Lymph % (Auto) 12.6 % (21.0-51.0) L 12/14/21 13:10 [place] % (Auto) 10.0 % (0.0-13.0) 12/14/21 13:10 Eos % (Auto) 1.8 % (0.9-2.9) 12/14/21 13:10 Baso % (Auto) 1.0 % (0.2-1.0) 12/14/21 13:10 Neut # (Auto) 6.2 x10^3/uL (2.2-4.8) H 12/14/21 13:10 Lymph # (Auto) 1.0 X10^3/uL (1.3-2.9) L 12/14/21 13:10 [place] # (Auto) 0.8 x10^3/uL (0.3-0.8) 12/14/21 13:10 Eos # (Auto) 0.1 x10^3/uL (0.0-0.2) 12/14/21 13:10 Baso # (Auto) 0.1 X10^3/uL (0.0-0.1) 12/14/21 13:10 Absolute Nucleated RBC 0.1 /100WBC 12/14/21 13:10 Sodium 144 mmol/L (136-145) 12/14/21 13:10 Corrected Sodium 146 mmol/L (136-145) H 12/14/21 13:10 Potassium 3.8 mmol/L (3.5-5.1) 12/14/21 13:10 Chloride 103 mmol/L (98-107) 12/14/21 13:10 Carbon Dioxide 33.5 mmol/L (21-32) H 12/14/21 13:10 BUN 80 mg/dL (7-18) H 12/14/21 13:10 Creatinine 2.31 mg/dL (0.70-1.30) H 12/14/21 13:10 Est GFR (MDRD) Af Amer 35 (>60) L 12/14/21 13:10 Est GFR (MDRD) Non-Af 29 (>60) L 12/14/21 13:10 Glucose 190 mg/dL (65-99) H 12/14/21 13:10 POC Glucose (mg/dL) 158 mg/dL (65-99) H 12/14/21 13:10 Lactic Acid 1.7 mmol/L (0.4-2.0) 12/14/21 14:00 Calcium 8.7 mg/dL (8.5-10.1) 12/14/21 13:10 Corrected Calcium 9.6 mg/dL (8.5-10.1) 12/14/21 13:10 Total Bilirubin 0.70 mg/dL (0.2-1.0) 12/14/21 13:10 AST 21 Units/L (15-37) 12/14/21 13:10 ALT 37 Units/L (12-78) 12/14/21 13:10 Alkaline Phosphatase 176 Units/L (46-116) H 12/14/21 13:10 Creatine Kinase 32 Units/L (39-308) L 12/14/21 13:10 CK-MB (CK-2) < 1.0 ng/mL (0-4.0) 12/14/21 13:10 CK/CKMB % Calc 3.1 % (<4) 12/14/21 13:10 Troponin I High Sens 32.0 ng/L (4.0-60.0) 12/14/21 13:10 B-Natriuretic Peptide 2540 pg/mL (0-79) H* 12/14/21 13:10 Total Protein 7.4 g/dL (6.4-8.2) 12/14/21 13:10 Albumin 2.9 g/dL (3.4-5.0) L 12/14/21 13:10 Globulin 4.5 g/dL (2.5-4.5) 12/14/21 13:10 Albumin/Globulin Ratio 0.6 Ratio (1.1-2.1) L 12/14/21 13:10 Lipase 267 Units/L (73-393) 12/14/21 13:10 Specimen Type Catherized urine 12/14/21 14:57 Urine Color Yellow (YELLOW) 12/14/21 14:57 Urine Appearance Cloudy (CLEAR) 12/14/21 14:57 Urine pH 7.0 (5.0 - 8.0) 12/14/21 14:57 Ur Specific [place] 1.010 (1.000-1.030) 12/14/21 14:57 Urine Protein 2+ (NEGATIVE) 12/14/21 14:57 Urine Glucose (UA) Negative (NEGATIVE) 12/14/21 14:57 Urine Ketones Negative (NEGATIVE) 12/14/21 14:57 Urine Blood 2+ (NEGATIVE) 12/14/21 14:57 Urine Nitrite Negative (NEGATIVE) 12/14/21 14:57 Urine Bilirubin Negative (NEGATIVE) 12/14/21 14:57 Urine Urobilinogen Normal (NORMAL) 12/14/21 14:57 Ur Leukocyte Esterase 3+ (NEGATIVE) 12/14/21 14:57 Urine RBC 10-20 /HPF (0-3) A 12/14/21 14:57 Urine WBC Tntc /HPF (0-5) A 12/14/21 14:57 Ur Squamous Epith Cells Moderate /HPF (NEGATIVE) 12/14/21 14:57 Amorphous Sediment 1+ /HPF (NEGATIVE) 12/14/21 14:57 Urine Bacteria 2+ /HPF (NEGATIVE) 12/14/21 14:57 Other Casts Few /LPF (NEGATIVE) 12/14/21 14:57 Ur Culture Indicated? Yes/culture set up 12/14/21 14:57 EKG Rate: 114 [place]: Normal Rhythm: Paced (with frequent ectopy, ? dual paced) Block: IVCD ST: Nonsp Opioid Opioid Risk Tool Age (Adonis box if 16-45): No History of Preadolescent Sexual Abuse: No Total: 0 Total Score Risk Category: Low Risk Copyright: James ANTOINE predicting aberrant behaviors Diagnosis Discharge Problem: Dehydration Congestive heart failure Qualifiers: Heart failure type: unspecified Heart failure chronicity: acute on chronic Qualified Code(s): I50.9 - Heart failure, unspecified
[2021-12-14 13:37] LABS: BASOPHILS # (AUTO) 0.1 X10^3/uL (0.0-0.1); EOSINOPHILS # (AUTO) 0.1 x10^3/uL (0.0-0.2); EOSINOPHILS % (AUTO) 1.8 % (0.9-2.9); HEMATOCRIT 41.8 % (42.0-54.0); HEMOGLOBIN 13.8 g/dL (13.5-18.0); LYMPHOCYTES % (AUTO) 12.6 % (21.0-51.0); MEAN CORPUSCULAR HEMOGLOBIN 29.1 pg (27.0-34.0); MEAN CORPUSCULAR HGB CONC 32.9 g/dL (33.0-35.0); MEAN CORPUSCULAR VOLUME 88.4 fL (80.0-100.0); MEAN PLATELET VOLUME 10.7 fL (7.4-11.0); MONOCYTES # (AUTO) 0.8 x10^3/uL (0.3-0.8); NEUTROPHILS # (AUTO) 6.2 x10^3/uL (2.2-4.8); NEUTROPHILS % (AUTO) 74.6 % (42.0-75.0); RED BLOOD COUNT 4.73 X10^6/uL (4.7-6.0); RED CELL DISTRIBUTION WIDTH 16.6 % (11.6-16.5); WHITE BLOOD COUNT 8.2 X10^3/uL (3.6-10.0)
[2021-12-14 13:58] LABS: ALANINE AMINOTRANSFERASE 37 Units/L (12-78); ALBUMIN 2.9 g/dL (3.4-5.0); ALKALINE PHOSPHATASE 176 Units/L (46-116); ASPARTATE AMINO TRANSFERASE 21 Units/L (15-37); BLOOD UREA NITROGEN 80 mg/dL (7-18); CALCIUM 8.7 mg/dL (8.5-10.1); CARBON DIOXIDE 33.5 mmol/L (21-32); CHLORIDE 103 mmol/L (98-107); CKMB % 3.1 % (<4); COR CA(FOR HYPOALB) 9.6 mg/dL (8.5-10.1); COR NA(FOR HYPERGLY) 146 mmol/L (136-145); CREATINE KINASE 32 Units/L (39-308); CREATINE KINASE MB < 1.0 ng/mL (0-4.0); CREATININE 2.31 mg/dL (0.70-1.30); LIPASE 267 Units/L (73-393); SODIUM 144 mmol/L (136-145); TOTAL PROTEIN 7.4 g/dL (6.4-8.2); eGFR NON BLACK RACES 29 (>60)
[2021-12-14] MEDS ORDERED: LASIX IVP ONE ×2 (14:16→14:27)
--- NOTE | 2021-12-14 14:45 | RAD ---
HISTORYDYSPNEA, H/O CHFSTUDYCHEST, 1 [id number]/11/2022.TECHNIQUEAP chestFINDINGSLeft chest wall pacemaker with leads in similar position. The heart is stably enlarged. Bilateral airspace opacities worst in the right mid to lower lung. Suspect small right pleural effusion. No pneumothorax.IMPRESSIONCardiomegaly with bilateral airspace opacities likely moderate pulmonary edema. Suspect small right pleural effusion.Electronically signed by: George Cordero (Dec 14, 2021 14:45:30)
[2021-12-14 15:13] LABS: BILIRUBIN,URINE NEGATIVE (NEGATIVE); BLOOD/HEMOGLOBIN,URINE 2+ (NEGATIVE); GLUCOSE, URINE NEGATIVE (NEGATIVE); KETONES,URINE NEGATIVE (NEGATIVE); LEUKOCYTE ESTERASE ,URINE 3+ (NEGATIVE); NITRITES,URINE NEGATIVE (NEGATIVE); PROTEIN,URINE 2+ (NEGATIVE); UROBILINOGEN,URINE NORMAL (NORMAL)
[2021-12-14 15:28] LABS: APPEARANCE,URINE CLOUDY (CLEAR); COLOR,URINE YELLOW (YELLOW)
[2021-12-14 15:31] LABS: BACTERIA,URINE 2+ /HPF (NEGATIVE); SQUAMOUS EPITHELIAL CELL,UR MODERATE /HPF (NEGATIVE)
[2021-12-14 15:32] LABS: OTHER CASTS, URINE FEW /LPF (NEGATIVE)
[2021-12-14] MEDS ORDERED: ROCEPHIN VIAL 1 GRAM 1 G in NS 100 ML IV 100 ML IV ONE (15:39)
[2021-12-14] MEDS ORDERED: ROCEPHIN 1 GRAM IV PREMIX 1 G/50 ML IV.SOLN. IV ONE (16:01)
[2021-12-14] MEDS: ROCEPHIN VIAL 1 GRAM 1 G in NS 100 ML IV 100 ML IV SCH (16:50)
[2021-12-14] MEDS ORDERED: LASIX IVP SCH (17:17)
[2021-12-14] MEDS: D5 NS 1,000 ML IV 1,000 ML IV SCH (17:41)
[2021-12-14] MEDS: COREG TAB 3.125 MG PO SCH (21:44)
[2021-12-14] MEDS: ELIQUIS PO SCH (21:44)
[2021-12-14] MEDS: SINEMET (PLAIN) 25/100 MG PO SCH (21:45)
[2021-12-15 04:36] LABS: BASOPHILS # (AUTO) 0.1 X10^3/uL (0.0-0.1); BASOPHILS % (AUTO) 1.5 % (0.2-1.0); EOSINOPHILS # (AUTO) 0.1 x10^3/uL (0.0-0.2); EOSINOPHILS % (AUTO) 1.6 % (0.9-2.9); HEMATOCRIT 39.9 % (42.0-54.0); HEMOGLOBIN 13.2 g/dL (13.5-18.0); LYMPHOCYTES # (AUTO) 1.2 X10^3/uL (1.3-2.9); LYMPHOCYTES % (AUTO) 16.2 % (21.0-51.0); MEAN CORPUSCULAR HEMOGLOBIN 28.8 pg (27.0-34.0); MEAN CORPUSCULAR HGB CONC 33.1 g/dL (33.0-35.0); MEAN CORPUSCULAR VOLUME 87.2 fL (80.0-100.0); MEAN PLATELET VOLUME 10.9 fL (7.4-11.0); MONOCYTES # (AUTO) 0.8 x10^3/uL (0.3-0.8); MONOCYTES % (AUTO) 11.4 % (0.0-13.0); NEUTROPHILS # (AUTO) 5.2 x10^3/uL (2.2-4.8); NEUTROPHILS % (AUTO) 69.3 % (42.0-75.0); RED BLOOD COUNT 4.58 X10^6/uL (4.7-6.0); RED CELL DISTRIBUTION WIDTH 17.3 % (11.6-16.5); WHITE BLOOD COUNT 7.5 X10^3/uL (3.6-10.0)
[2021-12-15 04:42] LABS: CALCIUM 8.7 mg/dL (8.5-10.1); CARBON DIOXIDE 32.7 mmol/L (21-32); COR CA(FOR HYPOALB) 9.5 mg/dL (8.5-10.1); CREATININE 1.93 mg/dL (0.70-1.30); TOTAL PROTEIN 7.5 g/dL (6.4-8.2)
[2021-12-15] MEDS: D5 NS 1,000 ML IV 1,000 ML IV SCH ×4 (05:29→21:57)
--- NOTE | 2021-12-15 05:58 | RAD ---
PROCEDURE: Chest X-ray 1 View .HISTORY: Dyspnea.TECHNIQUE: AP portable done at 5:02 a.m..COMPARISON: 12/14/2021.TECHNICAL QUALITY: Satisfactory .FINDINGS:Heart size upper limits of normal with pacemaker on the left.Normal central vascularity.Improved consolidation lung bases with mild residual changes on the right. No pleural fluid or pneumothorax.IMPRESSION:Improved edema or pneumonia at the lung bases with minimal residual changes on the right.Electronically signed by: Alexei Ballesteros (Dec 15, 2021 05:57:33)
[2021-12-15] MEDS ORDERED: ENTRESTO 24/26 MG TAB PO SCH (09:00)
[2021-12-15] MEDS ORDERED: MEMANTINE 28 MG PO SCH (09:00)
[2021-12-15] MEDS ORDERED: COREG TAB 3.125 MG PO ONE (09:00)
[2021-12-15] MEDS: ELIQUIS PO SCH ×2 (09:03→20:30)
[2021-12-15] MEDS: LASIX IVP SCH ×2 (09:04→16:38)
[2021-12-15] MEDS: SYNTHROID 75 mcg TAB PO SCH (09:04)
[2021-12-15] MEDS: SINEMET (PLAIN) 25/100 MG PO SCH ×2 (09:05→20:30)
[2021-12-15] MEDS: ROCEPHIN VIAL 1 GRAM 1 G in NS 100 ML IV 100 ML IV SCH (09:05)
[2021-12-15] MEDS: ARICEPT TAB 10 MG PO SCH (17:26)
[2021-12-15] MEDS: FOLIC ACID TAB 1 MG PO SCH (17:26)
[2021-12-15] MEDS: ASPIRIN EC 81 MG PO SCH (17:26)
--- NOTE | 2021-12-15 19:44 | DR.H&P ---
H&P - History & Physical for Day of: H&P Date: 12/14/21 - Chief Complaint Chief Complaint: WEAKNESS, SHORTENSS OF BREATH, DECREASED ORAL INTAKE - History of Present Illness History of Present Illness: IS A 86 YEAR OLD PATIENT OF OURS. HE WAS BROUGHT INTO THE ER ON 12/14 BY HIS SPOUSE. PATIENT COMPLAINS OF SHORTNESS OF BREATH. HIS SPOUSE RE DECREASED ORAL INTAKE, WEAKNESS, AND LETHARGY X 1 DAY. PATIENTS SPOUSE REPORTS THAT PATIENT WAS RECENTLY HOSPITALIZED IN [place], [place] X 2 WEEKS FOR TREATMENT OF CHF. HE HAS A HISTORY OF CARDIOMYOPATHY, POOR EJECTION FRACTION, PACEMAKER, CHF, DEMENTIA, HYSLIPIDEMIA, HTN, HYPOTHYROIDISM, RENAL DISEASE, BOWEL RESECTION, ORTHO SURGERY. UPON ARRIVAL TO THE ER, PATIENT WAS AROUSABLE, BUT UNABLE TO FOLLOW COMMANDS. AUSCULTATION OF LUNG NAILS REEALED BILATERAL RALES THROUGHOUT. BLE ARE NOTED WITH 2+ PITTING EDEMA TO LOWER EXTREMITIES. ON ARRIVAL TO THE ER, VITALS WERE 97.8-119-22-98%-108/62. LABS WERE OBTAINED. WBC 8.2, RBC 13.8, HCT 41.8, SODIUM 144, POTASSIUM 3.8, CHLORIDE 103, CARBON DIOXIDE 33.5, BUN 80, CREATININE 2.31, GLUCOSE 190, CALCIUM 8.7, AST 21, ALT 37, ALK PHOS 176, CREATINE KINASE 32, BNP 2540, TOTAL PROTEIN 7.4, ALBUMIN 2.9, LACTIC ACID 1.7. A URINALYSIS WAS OBTAINED AND REVEALED: WBC TNTC, RBC 10- 20, LEUKOCYTES 3+, BACTERIA 2+ PROTEIN 2+, BLOOD 2+, NITRITES NEGATIVE. A URINE CULTURE WAS SET UP. COVID-19 NEGATIVE. A CHEST XRAY WAS OBTAINED AND REVEALED: Cardiomegaly with bilateral airspace opacities likely moderate pulmonary edema. Suspect small right pleural effusion. A LIVE CATHETER WAS INSERTED. HIS BLOOD PRESSURE DID DROP TO 83/60 WHILE IN THE ER. HE WAS GIVEN A NORMAL SALINE 1 LITER BOLUS X 2 DOSES, LASIX 40MG IV X 1 DOSE, ROCEPHIN 1G IV X 1 DOSE. BLOOD PRESSURE INCREASED TO 113/75. HE WAS ADMITTED TO THE HOSPITAL FOR FURTHER EVALUATION AND TREATMENT OF CHF, UTI, ACUTE ON CHRONIC RENAL FAILURE, AND DEHYDRATION. HE WAS STARTED ON D5NS AT 80 ML/HR, ROCEPHIN 1G IV X 1 DOSE, FUROSEMIDE 20MG IV BID, AND HIS HOME MEDICATIONS OF ELIQUIS, ECOTRIN, SINEMET, COREG, KLONOPIN, ARICEPT, FOLIC ACID, SYNTHROID, AND ULTRAM WERE RESUMED. WE PLAN TO FOLLOW-UP WITH AM LABS AND CHEST XRAY AND CONTINUE TO MONITOR. TIME SPENT ON CLINICAL ASSESSMENT, REVIEWING LABS AND IMAGING, DECISION MAKING, AND DOCUMENTATION GREATER THAN 75 MINUTES. - Past Medical History Past Medical History: Hypertension, Dyslipidemia, Renal Disease, Dementia, Hypothyroidism, CHF Additional Medical History: BPH - Past Surgical History Surgical History: Abdominal Surgery, Bowel Resection, Ortho Surgery - Family History Family Medical History: Diabetes Mellitus, Hypertension - Social History Does patient currently use any type of tobacco product: No Have you used tobacco products in the last 12 months: No Type of Tobacco Use: None Does any household member use tobacco: No Alcohol Use: None Drug Use: None - Medications Home Medications: No Known Drug Allergies Allergy (Verified 12/14/21 13:19) CONTINUE taking the following medications aspirin 81 mg PO DAILY 12/14/21 [History] bisoprolol fumarate 5 mg PO BID 12/14/21 [History] clonazepam 0.5 mg PO HS 12/14/21 [History] donepezil 10 mg PO DAILY 12/14/21 [History] folic acid 1 mg PO DAILY 12/14/21 [History] furosemide 20 mg PO BID 12/14/21 [History] olmesartan-hydrochlorothiazide 1 tab PO HS 12/14/21 [History] tramadol 50 mg PO QID PRN 12/14/21 [History] - Review of Systems Constitutional: Weakness Eyes: No Symptoms Reported ENT: No Symptoms Reported Respiratory: See HPI, Cough, Shortness of Breath Cardiovascular: No Symptoms Reported, Edema (2+ BLE PITTING EDEMA ) Gastrointestinal: No Symptoms Reported Genitourinary: No Symptoms Reported Musculoskeletal: No Symptoms Reported Skin: No Symptoms Reported Neurological: Weakness, Confusion - Physical Exam Vital Signs: Temperature 98.2 F Pulse Rate [Left Brachial] 126 Pulse Rate 103 Respiratory Rate 24 Blood Pressure [Right Arm] 129/76 Blood Pressure [Left Arm] 113/75 Blood Pressure 96/60 O2 Sat by Pulse Oximetry 100 Oriented: Normal Eyes: Normal Ear: Normal Nose: Normal Throat: Normal Respiratory: Diminished Throughout, Rales Throughout Cardiovascular: Edema (BLE 2+ PITTING EDEMA ) : Normal Auscultation: Bowel Sounds: Normal Palpation: Normal Tenderness: Normal Skin: Normal Musculoskeletal: Normal Psychiatric: Normal Mood Description: Calm Affect: Normal Speech Pattern: Clear - Assessment/Plan (1) Congestive heart failure Qualifiers: Heart failure type: unspecified Heart failure chronicity: acute on chronic Qualified Code(s): I50.9 - Heart failure, unspecified Status: Chronic Plan: ADMIT, D5NS AT 80 ML/HR, ROCEPHIN 1G IV X 1 DOSE, FUROSEMIDE 20MG IV BID, AND HIS HOME MEDICATIONS OF ELIQUIS, ECOTRIN, SINEMET, COREG, KLONOPIN, ARICEPT, FOLIC ACID, SYNTHROID, AND ULTRAM WERE RESUMED. (2) Acute on chronic renal failure Qualifiers: Acute renal failure type: unspecified Chronic kidney disease stage: stage 3 (moderate) Chronic kidney disease stage 3 subtype: stage 3b (GFR 30-44) Qualified Code(s): N17.9 - Acute kidney failure, unspecified; N18.32 - Chronic kidney disease, stage 3b Status: Acute (3) Urinary tract infection Qualifiers: Urinary tract infection type: acute cystitis Hematuria presence: with hematuria Qualified Code(s): N30.01 - Acute cystitis with hematuria Status: Acute (4) Dehydration Status: Acute - Allergies Allergies/Adverse Reactions: Allergies Allergy/AdvReac Type Severity Reaction Status Date / Time No Known Drug Allergies Allergy Verified 12/14/21 13:19
[2021-12-15] MEDS: COREG TAB 3.125 MG PO SCH (20:31)
[2021-12-15] MEDS: KLONOPIN TAB 0.5 MG PO SCH (22:42)
--- NOTE | 2021-12-16 05:24 | RAD ---
PROCEDURE: Chest X-ray 1 View .HISTORY: Dyspnea.TECHNIQUE: AP portable done at 4:50 a.m..COMPARISON: 12/15/2021.TECHNICAL QUALITY: Satisfactory .FINDINGS:Cardiomegaly with pacemaker on the left and is unchanged.Normal central vascularity.Some increased interstitial markings lung [place] that is unchanged. Small right pleural effusion that is unchanged. No definite consolidation or pneumothorax.IMPRESSION:1. Unchanged right pleural effusion.2. Unchanged mild cardiomegaly.3. No consolidation.Electronically signed by: Alexei Ballesteros (Dec 16, 2021 05:23:34)
[2021-12-16 05:51] LABS: BASOPHILS % (AUTO) 0.6 % (0.2-1.0); EOSINOPHILS # (AUTO) 0.2 x10^3/uL (0.0-0.2); EOSINOPHILS % (AUTO) 2.9 % (0.9-2.9); HEMATOCRIT 38.3 % (42.0-54.0); HEMOGLOBIN 12.5 g/dL (13.5-18.0); LYMPHOCYTES # (AUTO) 1.4 X10^3/uL (1.3-2.9); LYMPHOCYTES % (AUTO) 19.1 % (21.0-51.0); MEAN CORPUSCULAR HGB CONC 32.7 g/dL (33.0-35.0); MEAN CORPUSCULAR VOLUME 88.6 fL (80.0-100.0); MONOCYTES # (AUTO) 0.9 x10^3/uL (0.3-0.8); MONOCYTES % (AUTO) 11.8 % (0.0-13.0); NEUTROPHILS # (AUTO) 4.9 x10^3/uL (2.2-4.8); NEUTROPHILS % (AUTO) 65.6 % (42.0-75.0); RED BLOOD COUNT 4.32 X10^6/uL (4.7-6.0); RED CELL DISTRIBUTION WIDTH 17.1 % (11.6-16.5); WHITE BLOOD COUNT 7.5 X10^3/uL (3.6-10.0)
[2021-12-16 06:02] LABS: ALBUMIN 2.6 g/dL (3.4-5.0); CALCIUM 8.2 mg/dL (8.5-10.1); CARBON DIOXIDE 29.6 mmol/L (21-32); COR CA(FOR HYPOALB) 9.3 mg/dL (8.5-10.1); CREATININE 1.77 mg/dL (0.70-1.30); TOTAL PROTEIN 6.7 g/dL (6.4-8.2)
[2021-12-16 09:18] LABS: CKMB % 2.8 % (<4); CREATINE KINASE 36 Units/L (39-308); CREATINE KINASE MB < 1.0 ng/mL (0-4.0)
[2021-12-16] MEDS: ROCEPHIN VIAL 1 GRAM 1 G in NS 100 ML IV 100 ML IV SCH (09:30)
[2021-12-16] MEDS: LASIX IVP SCH ×2 (09:33→16:39)
[2021-12-16] MEDS: ELIQUIS PO SCH ×2 (09:35→21:39)
[2021-12-16] MEDS: SINEMET (PLAIN) 25/100 MG PO SCH ×2 (09:35→21:39)
[2021-12-16] MEDS: FOLIC ACID TAB 1 MG PO SCH (09:35)
[2021-12-16] MEDS: ARICEPT TAB 10 MG PO SCH (09:35)
[2021-12-16] MEDS: SYNTHROID 75 mcg TAB PO SCH (09:35)
[2021-12-16] MEDS: ASPIRIN EC 81 MG PO SCH (09:35)
[2021-12-16] MEDS ORDERED: LASIX IVP ONE (10:59)
[2021-12-16] MEDS ORDERED: LANOXIN PO ONE (11:00)
[2021-12-16] MEDS: D5 NS 1,000 ML IV 1,000 ML IV SCH (13:37)
[2021-12-16 13:43] LABS: CKMB % 2.7 % (<4); CREATINE KINASE 37 Units/L (39-308); CREATINE KINASE MB < 1.0 ng/mL (0-4.0)
[2021-12-16] MEDS ORDERED: TOPROL XL PO SCH (17:00)
[2021-12-16 17:47] LABS: CKMB % 3.3 % (<4); CREATINE KINASE 30 Units/L (39-308); CREATINE KINASE MB < 1.0 ng/mL (0-4.0)
[2021-12-16] MEDS ORDERED: LOPRESSOR INJ 5 MG AMP IVP ONE (20:51)
[2021-12-16] MEDS ORDERED: LOPRESSOR INJ 5 MG AMP ONE (20:56)
[2021-12-16] MEDS ORDERED: COREG TAB 3.125 MG PO SCH (21:00)
[2021-12-16] MEDS: KLONOPIN TAB 0.5 MG PO SCH (21:40)
[2021-12-16] MEDS: ATARAX TAB 25 MG PO PRN (23:02)
[2021-12-17] MEDS ORDERED: LOPRESSOR INJ 5 MG AMP IVP ONE (00:47)
[2021-12-17] MEDS ORDERED: LOPRESSOR INJ 5 MG AMP ONE (00:48)
[2021-12-17] MEDS: D5 NS 1,000 ML IV 1,000 ML IV SCH ×3 (02:00→23:04)
[2021-12-17 04:45] LABS: EOSINOPHILS # (AUTO) 0.2 x10^3/uL (0.0-0.2); HEMOGLOBIN 11.8 g/dL (13.5-18.0); MONOCYTES # (AUTO) 0.8 x10^3/uL (0.3-0.8); MONOCYTES % (AUTO) 13.3 % (0.0-13.0); NEUTROPHILS # (AUTO) 3.3 x10^3/uL (2.2-4.8); RED CELL DISTRIBUTION WIDTH 17.5 % (11.6-16.5); WHITE BLOOD COUNT 5.8 X10^3/uL (3.6-10.0)
[2021-12-17 04:49] LABS: BASOPHILS # (AUTO) 0.1 X10^3/uL (0.0-0.1); BASOPHILS % (AUTO) 1.1 % (0.2-1.0); EOSINOPHILS % (AUTO) 3.8 % (0.9-2.9); HEMATOCRIT 35.8 % (42.0-54.0); LYMPHOCYTES # (AUTO) 1.4 X10^3/uL (1.3-2.9); LYMPHOCYTES % (AUTO) 24.8 % (21.0-51.0); MEAN CORPUSCULAR HEMOGLOBIN 29.1 pg (27.0-34.0); MEAN CORPUSCULAR VOLUME 88.1 fL (80.0-100.0); MEAN PLATELET VOLUME 10.4 fL (7.4-11.0); RED BLOOD COUNT 4.06 X10^6/uL (4.7-6.0)
[2021-12-17 04:54] LABS: ALBUMIN 2.3 g/dL (3.4-5.0); CALCIUM 8.1 mg/dL (8.5-10.1); CARBON DIOXIDE 28.5 mmol/L (21-32); COR CA(FOR HYPOALB) 9.5 mg/dL (8.5-10.1); CREATININE 1.51 mg/dL (0.70-1.30)
[2021-12-17] MEDS ORDERED: KLOR-CON PO PRN (05:34)
[2021-12-17] MEDS ORDERED: K-RIDER 10 MEQ/NS 100 ML 10 MEQ/100 ML BAG IV PRN (05:34)
[2021-12-17] MEDS ORDERED: POTASSIUM CHL 60 MEQ/NS 0.45% 500 ML IV PRN (05:34)
[2021-12-17] MEDS ORDERED: MICRO K EXTEN CAP 10 MEQ PO PRN (05:34)
[2021-12-17] MEDS ORDERED: POTASSIUM CHL 40 MEQ/NS 0.45% 500 ML IV PRN (05:34)
[2021-12-17] MEDS ORDERED: POTASSIUM CHLORIDE LIQ 20 MEQ UDC PO PRN (05:34)
--- NOTE | 2021-12-17 05:42 | RAD ---
PROCEDURE: Chest X-ray 1 View .HISTORY: Dyspnea.TECHNIQUE: AP view .COMPARISON: 12/16/2021.TECHNICAL QUALITY: Satisfactory .FINDINGS:Unchanged start size upper limits of normal with pacemaker on the left.Normal central vascularity.No pulmonary consolidation or pleural fluid. No pneumothorax.IMPRESSION:Unchanged start size upper limits of normal with no other acute change identified.Electronically signed by: Alexei Ballesteros (Dec 17, 2021 05:42:10)
[2021-12-17] MEDS: MAGNESIUM SULFATE 1 GRAM/100 mL PREMIX 1 G/100 ML BAG IV PRN ×2 (06:29→11:58)
[2021-12-17] MEDS: ROCEPHIN VIAL 1 GRAM 1 G in NS 100 ML IV 100 ML IV SCH (08:27)
[2021-12-17] MEDS: TOPROL XL PO SCH (08:33)
[2021-12-17] MEDS: K-DUR TAB 20 MEQ PO PRN (08:36)
[2021-12-17] MEDS: LASIX IVP SCH ×2 (08:37→16:31)
[2021-12-17] MEDS: ELIQUIS PO SCH ×2 (08:38→21:52)
[2021-12-17] MEDS: SINEMET (PLAIN) 25/100 MG PO SCH ×2 (08:38→21:53)
[2021-12-17] MEDS: FOLIC ACID TAB 1 MG PO SCH (08:38)
[2021-12-17] MEDS: SYNTHROID 75 mcg TAB PO SCH (08:38)
[2021-12-17] MEDS: ARICEPT TAB 10 MG PO SCH (08:38)
[2021-12-17] MEDS: ASPIRIN EC 81 MG PO SCH (08:40)
--- NOTE | 2021-12-17 12:06 | PCM.PROG ---
Progress Note Progress Note for Day of Date of Exam: 12/17/21 Subjective Subjective: Patient seen at bedside, overnight patient's HR was elevated in the 120s. He was given metoprolol tartrate 5mg IV and it did come down to 110s. He was started on PO metoprolol succinate yesterday afternoon and also given one dose of Digoxin. Patient's renal function is improving. Labs reviewed CXR: no acute changes Plan: will increase metoprolol succinate to 50 mg daily, monitor HR on telemetry. Continue IV lasix, monitor UOP and daily weights. Continue Rocephin for Klebsiella UTI. Replace K as per protocol. Monitor AM labs. Past Medical Family Social History Past Med/Fam/Surg Hx: No changes since H&P Allergies: Allergies No Known Drug Allergies Allergy (Verified 12/14/21 13:19) Review of Systems ROS: No change since H&P Vital Signs and I&O's Vital Signs: Temperature 98.4 F Pulse Rate [Left Brachial] 110 Pulse Rate 120 Respiratory Rate 24 Blood Pressure [Right Arm] 115/69 Blood Pressure [Left Arm] 105/61 Blood Pressure 118/61 O2 Sat by Pulse Oximetry 99 Intake and Output: Intake & Output 12/14/21 12/15/21 12/16/21 12/17/21 23:59 23:59 23:59 23:59 Intake Total 400 / 400 1979 / 1979 3221 / 3221 880 / 880 Output Total 1300 / 1300 2300 / 2300 1400 / 1400 1175 / 1175 Balance -900 / -900 -320 / -320 1821 / 1821 -295 / -295 Physical Exam Oriented: Unable to test Eyes: Normal Ear: Normal Nose: Normal Throat: Normal Respiratory: Generalized and Diminished Cardiovascular: Edema (BLE 2+ PITTING EDEMA ) Auscultation: Bowel Sounds: Normal Tenderness: Normal Skin: Normal Musculoskeletal: Normal Psychiatric: Normal Mood Description: Calm Affect: Normal Speech Pattern: Inappropriate and Delayed Laboratory and Diagnostics Result Diagrams: 12/17/21 04:00 12/17/21 04:00 Labs: 12/14/21 14:57 Urine,Catheterized Urine Culture - Final Klebsiella Pneumoniae Laboratory WBC 5.8 X10^3/uL (3.6-10.0) 12/17/21 04:00 RBC 4.06 X10^6/uL (4.7-6.0) L 12/17/21 04:00 Hgb 11.8 g/dL (13.5-18.0) L 12/17/21 04:00 Hct 35.8 % (42.0-54.0) L 12/17/21 04:00 MCV 88.1 fL (80.0-100.0) 12/17/21 04:00 MCH 29.1 pg (27.0-34.0) 12/17/21 04:00 MCHC 33.0 g/dL (33.0-35.0) 12/17/21 04:00 RDW 17.5 % (11.6-16.5) H 12/17/21 04:00 Plt Count 152 X10^3/uL (150.0-450.0) 12/17/21 04:00 MPV 10.4 fL (7.4-11.0) 12/17/21 04:00 Neut % (Auto) 57.0 % (42.0-75.0) 12/17/21 04:00 Lymph % (Auto) 24.8 % (21.0-51.0) 12/17/21 04:00 [place] % (Auto) 13.3 % (0.0-13.0) H 12/17/21 04:00 Eos % (Auto) 3.8 % (0.9-2.9) H 12/17/21 04:00 Baso % (Auto) 1.1 % (0.2-1.0) H 12/17/21 04:00 Neut # (Auto) 3.3 x10^3/uL (2.2-4.8) 12/17/21 04:00 Lymph # (Auto) 1.4 X10^3/uL (1.3-2.9) 12/17/21 04:00 [place] # (Auto) 0.8 x10^3/uL (0.3-0.8) 12/17/21 04:00 Eos # (Auto) 0.2 x10^3/uL (0.0-0.2) 12/17/21 04:00 Baso # (Auto) 0.1 X10^3/uL (0.0-0.1) 12/17/21 04:00 Absolute Nucleated RBC 0.1 /100WBC 12/17/21 04:00 Sodium 144 mmol/L (136-145) 12/17/21 04:00 Corrected Sodium 145 mmol/L (136-145) 12/17/21 04:00 Potassium 3.4 mmol/L (3.5-5.1) L 12/17/21 04:00 Chloride 109 mmol/L (98-107) H 12/17/21 04:00 Carbon Dioxide 28.5 mmol/L (21-32) 12/17/21 04:00 BUN 45 mg/dL (7-18) H 12/17/21 04:00 Creatinine 1.51 mg/dL (0.70-1.30) H 12/17/21 04:00 Est GFR (MDRD) Af Amer 57 (>60) L 12/17/21 04:00 Est GFR (MDRD) Non-Af 47 (>60) L 12/17/21 04:00 Glucose 158 mg/dL (65-99) H 12/17/21 04:00 POC Glucose (mg/dL) 158 mg/dL (65-99) H 12/14/21 13:10 Lactic Acid 1.7 mmol/L (0.4-2.0) 12/14/21 14:00 Calcium 8.1 mg/dL (8.5-10.1) L 12/17/21 04:00 Corrected Calcium 9.5 mg/dL (8.5-10.1) 12/17/21 04:00 Magnesium 1.7 mg/dL (1.7-2.9) 12/17/21 04:00 Total Bilirubin 0.50 mg/dL (0.2-1.0) 12/17/21 04:00 AST 21 Units/L (15-37) 12/17/21 04:00 ALT 10 Units/L (12-78) L 12/17/21 04:00 Alkaline Phosphatase 162 Units/L (46-116) H 12/17/21 04:00 Creatine Kinase 30 Units/L (39-308) L 12/16/21 17:21 CK-MB (CK-2) < 1.0 ng/mL (0-4.0) 12/16/21 17:21 CK/CKMB % Calc 3.3 % (<4) 12/16/21 17:21 Troponin I High Sens 37.1 ng/L (4.0-60.0) 12/16/21 17:21 B-Natriuretic Peptide 1500 pg/mL (0-79) H* 12/17/21 04:00 Total Protein 6.0 g/dL (6.4-8.2) L 12/17/21 04:00 Albumin 2.3 g/dL (3.4-5.0) L 12/17/21 04:00 Globulin 3.7 g/dL (2.5-4.5) 12/17/21 04:00 Albumin/Globulin Ratio 0.6 Ratio (1.1-2.1) L 12/17/21 04:00 Lipase 267 Units/L (73-393) 12/14/21 13:10 Specimen Type Catherized urine 12/14/21 14:57 Urine Color Yellow (YELLOW) 12/14/21 14:57 Urine Appearance Cloudy (CLEAR) 12/14/21 14:57 Urine pH 7.0 (5.0 - 8.0) 12/14/21 14:57 Ur Specific [place] 1.010 (1.000-1.030) 12/14/21 14:57 Urine Protein 2+ (NEGATIVE) 12/14/21 14:57 Urine Glucose (UA) Negative (NEGATIVE) 12/14/21 14:57 Urine Ketones Negative (NEGATIVE) 12/14/21 14:57 Urine Blood 2+ (NEGATIVE) 12/14/21 14:57 Urine Nitrite Negative (NEGATIVE) 12/14/21 14:57 Urine Bilirubin Negative (NEGATIVE) 12/14/21 14:57 Urine Urobilinogen Normal (NORMAL) 12/14/21 14:57 Ur Leukocyte Esterase 3+ (NEGATIVE) 12/14/21 14:57 Urine RBC 10-20 /HPF (0-3) A 12/14/21 14:57 Urine WBC Tntc /HPF (0-5) A 12/14/21 14:57 Ur Squamous Epith Cells Moderate /HPF (NEGATIVE) 12/14/21 14:57 Amorphous Sediment 1+ /HPF (NEGATIVE) 12/14/21 14:57 Urine Bacteria 2+ /HPF (NEGATIVE) 12/14/21 14:57 Other Casts Few /LPF (NEGATIVE) 12/14/21 14:57 Ur Culture Indicated? Yes/culture set up 12/14/21 14:57 SARS-CoV-2 (PCR) Negative (NEGATIVE) 12/14/21 15:42 Plan (1) Congestive heart failure: Status: Chronic Qualifiers: Heart failure chronicity: acute on chronic Heart failure type: unspecified Qualified Code(s): I50.9 - Heart failure, unspecified (2) Acute on chronic renal failure: Status: Acute Qualifiers: Acute renal failure type: unspecified Chronic kidney disease stage: stage 3 (moderate) Chronic kidney disease stage 3 subtype: stage 3b (GFR 30-44) Qualified Code(s): N17.9 - Acute kidney failure, unspecified; N18.32 - Chronic kidney disease, stage 3b (3) Dehydration: Status: Acute (4) UTI due to Klebsiella species: Status: Acute (5) Dementia: Status: Chronic Qualifiers: Dementia behavioral disturbance: without behavioral disturbance Dementia type: unspecified type Qualified Code(s): F03.90 - Unspecified dementia without behavioral disturbance
[2021-12-17] MEDS: KLONOPIN TAB 0.5 MG PO SCH (21:52)
[2021-12-18] MEDS: D5 NS 1,000 ML IV 1,000 ML IV SCH ×3 (04:38→19:25)
[2021-12-18 07:01] LABS: BASOPHILS # (AUTO) 0.1 X10^3/uL (0.0-0.1); BASOPHILS % (AUTO) 1.1 % (0.2-1.0); EOSINOPHILS # (AUTO) 0.3 x10^3/uL (0.0-0.2); EOSINOPHILS % (AUTO) 4.6 % (0.9-2.9); HEMATOCRIT 36.4 % (42.0-54.0); HEMOGLOBIN 11.8 g/dL (13.5-18.0); LYMPHOCYTES # (AUTO) 1.2 X10^3/uL (1.3-2.9); LYMPHOCYTES % (AUTO) 19.2 % (21.0-51.0); MEAN CORPUSCULAR HEMOGLOBIN 28.7 pg (27.0-34.0); MEAN CORPUSCULAR HGB CONC 32.4 g/dL (33.0-35.0); MEAN CORPUSCULAR VOLUME 88.5 fL (80.0-100.0); MEAN PLATELET VOLUME 11.2 fL (7.4-11.0); MONOCYTES # (AUTO) 0.9 x10^3/uL (0.3-0.8); MONOCYTES % (AUTO) 13.8 % (0.0-13.0); NEUTROPHILS # (AUTO) 3.9 x10^3/uL (2.2-4.8); NEUTROPHILS % (AUTO) 61.3 % (42.0-75.0); RED BLOOD COUNT 4.11 X10^6/uL (4.7-6.0); RED CELL DISTRIBUTION WIDTH 17.6 % (11.6-16.5); WHITE BLOOD COUNT 6.4 X10^3/uL (3.6-10.0)
[2021-12-18 07:23] LABS: ALANINE AMINOTRANSFERASE 17 Units/L (12-78); ALBUMIN 2.6 g/dL (3.4-5.0); ALKALINE PHOSPHATASE 164 Units/L (46-116); ASPARTATE AMINO TRANSFERASE 32 Units/L (15-37); BLOOD UREA NITROGEN 39 mg/dL (7-18); CALCIUM 8.3 mg/dL (8.5-10.1); CARBON DIOXIDE 26.5 mmol/L (21-32); CHLORIDE 106 mmol/L (98-107); COR CA(FOR HYPOALB) 9.4 mg/dL (8.5-10.1); COR NA(FOR HYPERGLY) 142 mmol/L (136-145); CREATININE 1.41 mg/dL (0.70-1.30); MAGNESIUM 2.1 mg/dL (1.7-2.9); SODIUM 141 mmol/L (136-145); TOTAL PROTEIN 6.5 g/dL (6.4-8.2); eGFR NON BLACK RACES 51 (>60)
[2021-12-18] MEDS: ROCEPHIN VIAL 1 GRAM 1 G in NS 100 ML IV 100 ML IV SCH (08:32)
[2021-12-18] MEDS: TOPROL XL PO SCH (08:34)
[2021-12-18] MEDS: SINEMET (PLAIN) 25/100 MG PO SCH ×2 (08:34→20:55)
[2021-12-18] MEDS: ASPIRIN EC 81 MG PO SCH (08:34)
[2021-12-18] MEDS: ELIQUIS PO SCH ×2 (08:35→20:54)
[2021-12-18] MEDS: SYNTHROID 75 mcg TAB PO SCH (08:35)
[2021-12-18] MEDS: FOLIC ACID TAB 1 MG PO SCH (08:35)
[2021-12-18] MEDS: ARICEPT TAB 10 MG PO SCH (08:35)
[2021-12-18] MEDS: LASIX IVP SCH ×2 (08:42→18:06)
--- NOTE | 2021-12-18 08:45 | RAD ---
HISTORYSOBSTUDYAP [id number] cardiomegaly and pacemaker. Slight apparent interval increase in diffuse airspace process in both lower lungs without evidence for dominant consolidation, large pleural effusion or pneumothorax.IMPRESSIONSlightly increased bilateral parenchymal densities consistent with progression of pneumonia or edema.Electronically signed by: NANCY NEWMAN (Dec 18, 2021 08:45:04)
--- NOTE | 2021-12-18 09:54 | PCM.PROG ---
Progress Note Progress Note for Day of Date of Exam: 12/18/21 Subjective Subjective: Patient seen at bedside this morning. He is alert and awake and in good spirits this morning. He has no new complaints and is feeling better he reports. He is urine culture grew out Klebsiella pneumoniae which is sensitive to Rocephin. His BNP is elevated just over 1700 and his chest x-ray reveals he has worsening congestive heart failure. Continue him on his current treatment repeat labs in the morning as well as BMP and a repeat chest x-ray as well. Past Medical Family Social History Past Med/Fam/Surg Hx: No changes since H&P Allergies: Allergies No Known Drug Allergies Allergy (Verified 12/14/21 13:19) Review of Systems ROS: No change since H&P Vital Signs and I&O's Vital Signs: Temperature 97.4 F Pulse Rate [Left Brachial] 121 Pulse Rate 120 Respiratory Rate 20 Blood Pressure [Right Arm] 110/69 Blood Pressure [Left Arm] 105/61 Blood Pressure 118/61 O2 Sat by Pulse Oximetry 96 Intake and Output: Intake & Output 12/15/21 12/16/21 12/17/21 12/18/21 11:59 11:59 11:59 11:59 Intake Total 1220 / 1220 1760 / 1760 3501 / 3501 2414 / 2414 Output Total 1650 / 1650 2200 / 2200 2325 / 2325 1950 / 1950 Balance -430 / -430 -440 / -440 1176 / 1176 464 / 464 Physical Exam Oriented: Normal Eyes: Normal Ear: Normal Nose: Normal Throat: Normal Respiratory: Generalized and Diminished Cardiovascular: Edema (BLE 2+ PITTING EDEMA ) : Normal Auscultation: Bowel Sounds: Normal Tenderness: Normal Skin: Normal Musculoskeletal: Normal Psychiatric: Normal Mood Description: Calm Affect: Normal Speech Pattern: Aphasic Laboratory and Diagnostics Result Diagrams: 12/18/21 06:22 12/18/21 06:22 Labs: 12/14/21 14:57 Urine,Catheterized Urine Culture - Final Klebsiella Pneumoniae Laboratory WBC 6.4 X10^3/uL (3.6-10.0) 12/18/21 06:22 RBC 4.11 X10^6/uL (4.7-6.0) L 12/18/21 06:22 Hgb 11.8 g/dL (13.5-18.0) L 12/18/21 06:22 Hct 36.4 % (42.0-54.0) L 12/18/21 06:22 MCV 88.5 fL (80.0-100.0) 12/18/21 06:22 MCH 28.7 pg (27.0-34.0) 12/18/21 06:22 MCHC 32.4 g/dL (33.0-35.0) L 12/18/21 06:22 RDW 17.6 % (11.6-16.5) H 12/18/21 06:22 Plt Count 184 X10^3/uL (150.0-450.0) 12/18/21 06:22 MPV 11.2 fL (7.4-11.0) H 12/18/21 06:22 Neut % (Auto) 61.3 % (42.0-75.0) 12/18/21 06:22 Lymph % (Auto) 19.2 % (21.0-51.0) L 12/18/21 06:22 [place] % (Auto) 13.8 % (0.0-13.0) H 12/18/21 06:22 Eos % (Auto) 4.6 % (0.9-2.9) H 12/18/21 06:22 Baso % (Auto) 1.1 % (0.2-1.0) H 12/18/21 06:22 Neut # (Auto) 3.9 x10^3/uL (2.2-4.8) 12/18/21 06:22 Lymph # (Auto) 1.2 X10^3/uL (1.3-2.9) L 12/18/21 06:22 [place] # (Auto) 0.9 x10^3/uL (0.3-0.8) H 12/18/21 06:22 Eos # (Auto) 0.3 x10^3/uL (0.0-0.2) H 12/18/21 06:22 Baso # (Auto) 0.1 X10^3/uL (0.0-0.1) 12/18/21 06:22 Absolute Nucleated RBC 0.1 /100WBC 12/18/21 06:22 Sodium 141 mmol/L (136-145) 12/18/21 06:22 Corrected Sodium 142 mmol/L (136-145) 12/18/21 06:22 Potassium 4.0 mmol/L (3.5-5.1) 12/18/21 06:22 Chloride 106 mmol/L (98-107) 12/18/21 06:22 Carbon Dioxide 26.5 mmol/L (21-32) 12/18/21 06:22 BUN 39 mg/dL (7-18) H 12/18/21 06:22 Creatinine 1.41 mg/dL (0.70-1.30) H 12/18/21 06:22 Est GFR (MDRD) Af Amer > 60 (>60) 12/18/21 06:22 Est GFR (MDRD) Non-Af 51 (>60) L 12/18/21 06:22 Glucose 132 mg/dL (65-99) H 12/18/21 06:22 POC Glucose (mg/dL) 158 mg/dL (65-99) H 12/14/21 13:10 Lactic Acid 1.7 mmol/L (0.4-2.0) 12/14/21 14:00 Calcium 8.3 mg/dL (8.5-10.1) L 12/18/21 06:22 Corrected Calcium 9.4 mg/dL (8.5-10.1) 12/18/21 06:22 Magnesium 2.1 mg/dL (1.7-2.9) 12/18/21 06:22 Total Bilirubin 0.60 mg/dL (0.2-1.0) 12/18/21 06:22 AST 32 Units/L (15-37) 12/18/21 06:22 ALT 17 Units/L (12-78) 12/18/21 06:22 Alkaline Phosphatase 164 Units/L (46-116) H 12/18/21 06:22 Creatine Kinase 30 Units/L (39-308) L 12/16/21 17:21 CK-MB (CK-2) < 1.0 ng/mL (0-4.0) 12/16/21 17:21 CK/CKMB % Calc 3.3 % (<4) 12/16/21 17:21 Troponin I High Sens 37.1 ng/L (4.0-60.0) 12/16/21 17:21 B-Natriuretic Peptide 1730 pg/mL (0-79) H* 12/18/21 06:22 Total Protein 6.5 g/dL (6.4-8.2) 12/18/21 06:22 Albumin 2.6 g/dL (3.4-5.0) L 12/18/21 06:22 Globulin 3.9 g/dL (2.5-4.5) 12/18/21 06:22 Albumin/Globulin Ratio 0.7 Ratio (1.1-2.1) L 12/18/21 06:22 Lipase 267 Units/L (73-393) 12/14/21 13:10 Specimen Type Catherized urine 12/14/21 14:57 Urine Color Yellow (YELLOW) 12/14/21 14:57 Urine Appearance Cloudy (CLEAR) 12/14/21 14:57 Urine pH 7.0 (5.0 - 8.0) 12/14/21 14:57 Ur Specific [place] 1.010 (1.000-1.030) 12/14/21 14:57 Urine Protein 2+ (NEGATIVE) 12/14/21 14:57 Urine Glucose (UA) Negative (NEGATIVE) 12/14/21 14:57 Urine Ketones Negative (NEGATIVE) 12/14/21 14:57 Urine Blood 2+ (NEGATIVE) 12/14/21 14:57 Urine Nitrite Negative (NEGATIVE) 12/14/21 14:57 Urine Bilirubin Negative (NEGATIVE) 12/14/21 14:57 Urine Urobilinogen Normal (NORMAL) 12/14/21 14:57 Ur Leukocyte Esterase 3+ (NEGATIVE) 12/14/21 14:57 Urine RBC 10-20 /HPF (0-3) A 12/14/21 14:57 Urine WBC Tntc /HPF (0-5) A 12/14/21 14:57 Ur Squamous Epith Cells Moderate /HPF (NEGATIVE) 12/14/21 14:57 Amorphous Sediment 1+ /HPF (NEGATIVE) 12/14/21 14:57 Urine Bacteria 2+ /HPF (NEGATIVE) 12/14/21 14:57 Other Casts Few /LPF (NEGATIVE) 12/14/21 14:57 Ur Culture Indicated? Yes/culture set up 12/14/21 14:57 SARS-CoV-2 (PCR) Negative (NEGATIVE) 12/14/21 15:42 Plan (1) Congestive heart failure: Status: Chronic Qualifiers: Heart failure chronicity: acute on chronic Heart failure type: unspecified Qualified Code(s): I50.9 - Heart failure, unspecified Plan: ADMIT, D5NS AT 80 ML/HR, ROCEPHIN 1G IV X 1 DOSE, FUROSEMIDE 20MG IV BID, AND HIS HOME MEDICATIONS OF ELIQUIS, ECOTRIN, SINEMET, COREG, KLONOPIN, ARICEPT, FOLIC ACID, SYNTHROID, AND ULTRAM WERE RESUMED. 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
[2021-12-18] MEDS: MAGNESIUM SULFATE 1 GRAM/100 mL PREMIX 1 G/100 ML BAG IV PRN (10:52)
[2021-12-18] MEDS: KLONOPIN TAB 0.5 MG PO SCH (20:56)
[2021-12-18] MEDS: MEGACE PO SCH (20:57)
[2021-12-18] MEDS: ATARAX TAB 25 MG PO PRN (20:58)
[2021-12-18] MEDS ORDERED: BUTT CREAM (COMPOUND) TOP PRN (23:06)
[2021-12-19] MEDS: D5 NS 1,000 ML IV 1,000 ML IV SCH (02:43)
[2021-12-19 05:15] LABS: BASOPHILS # (AUTO) 0.1 X10^3/uL (0.0-0.1); BASOPHILS % (AUTO) 1.2 % (0.2-1.0); EOSINOPHILS # (AUTO) 0.3 x10^3/uL (0.0-0.2); EOSINOPHILS % (AUTO) 4.4 % (0.9-2.9); HEMATOCRIT 36.7 % (42.0-54.0); HEMOGLOBIN 12.1 g/dL (13.5-18.0); LYMPHOCYTES # (AUTO) 1.1 X10^3/uL (1.3-2.9); LYMPHOCYTES % (AUTO) 17.5 % (21.0-51.0); MEAN CORPUSCULAR HEMOGLOBIN 29.1 pg (27.0-34.0); MEAN CORPUSCULAR HGB CONC 32.9 g/dL (33.0-35.0); MEAN CORPUSCULAR VOLUME 88.5 fL (80.0-100.0); MEAN PLATELET VOLUME 10.6 fL (7.4-11.0); MONOCYTES # (AUTO) 0.8 x10^3/uL (0.3-0.8); MONOCYTES % (AUTO) 12.3 % (0.0-13.0); NEUTROPHILS # (AUTO) 4.2 x10^3/uL (2.2-4.8); NEUTROPHILS % (AUTO) 64.6 % (42.0-75.0); RED BLOOD COUNT 4.15 X10^6/uL (4.7-6.0); RED CELL DISTRIBUTION WIDTH 17.6 % (11.6-16.5); WHITE BLOOD COUNT 6.5 X10^3/uL (3.6-10.0)
[2021-12-19 05:26] LABS: ALBUMIN 2.9 g/dL (3.4-5.0); CALCIUM 8.3 mg/dL (8.5-10.1); CARBON DIOXIDE 26.5 mmol/L (21-32); COR CA(FOR HYPOALB) 9.2 mg/dL (8.5-10.1); CREATININE 1.59 mg/dL (0.70-1.30); TOTAL PROTEIN 7.3 g/dL (6.4-8.2)
[2021-12-19] MEDS: ROCEPHIN VIAL 1 GRAM 1 G in NS 100 ML IV 100 ML IV SCH (08:50)
[2021-12-19] MEDS: SYNTHROID 75 mcg TAB PO SCH (08:50)
[2021-12-19] MEDS: MEGACE PO SCH ×2 (08:50→20:18)
[2021-12-19] MEDS: TOPROL XL PO SCH (08:50)
[2021-12-19] MEDS: ULTRAM PO PRN (08:51)
[2021-12-19] MEDS: ELIQUIS PO SCH ×2 (08:51→20:17)
[2021-12-19] MEDS: ASPIRIN EC 81 MG PO SCH (08:51)
[2021-12-19] MEDS: SINEMET (PLAIN) 25/100 MG PO SCH ×2 (08:52→20:20)
[2021-12-19] MEDS: LASIX IVP SCH ×2 (08:52→17:00)
[2021-12-19] MEDS: FOLIC ACID TAB 1 MG PO SCH (08:52)
[2021-12-19] MEDS: ARICEPT TAB 10 MG PO SCH (08:52)
--- NOTE | 2021-12-19 10:27 | RAD ---
HISTORYSOBSTUDYAP [id number]/2022FINDINGSSimilar cardiomegaly and pacemaker position. No change in extent or distribution of indistinct bibasal airspace disease. No additional consolidation, complicating pneumothorax or pleural effusion demonstrated.IMPRESSIONNo change.Electronically signed by: NANCY NEWMAN (Dec 19, 2021 10:27:26)
[2021-12-19] MEDS ORDERED: TUSSIONEX PENNKINETIC SUSP PO PRN (11:13)
[2021-12-19] MEDS ORDERED: D5 NS 1,000 ML IV 1,000 ML IV PRN (11:17)
[2021-12-19] MEDS ORDERED: LEVAQUIN PREMIX IV 500 MG 500 MG/100 ML BAG IV SCH (12:00)
[2021-12-19] MEDS: ROBITUSSIN DM PO SCH ×3 (12:50→20:19)
[2021-12-19] MEDS ORDERED: SALINE 3% 15 ML NEB TX NEB ONE (13:00)
[2021-12-19] MEDS: DUONEB 0.5 MG/3 MG (3 mL) NEB SCH ×3 (13:15→20:10)
[2021-12-19] MEDS ORDERED: PULMICORT NEB TX 0.5 MG NEB ONE (19:52)
[2021-12-19] MEDS: PULMICORT NEB TX 0.5 MG NEB SCH (20:10)
[2021-12-19] MEDS: KLONOPIN TAB 0.5 MG PO SCH (20:17)
[2021-12-19] MEDS: ATARAX TAB 25 MG PO PRN (20:20)
--- NOTE | 2021-12-19 21:53 | PCM.PROG ---
Progress Note Progress Note for Day of Date of Exam: 12/19/21 Subjective Subjective: Patient seen at bedside this morning. He is less alert this morning. He has no new complaints and is feeling about the same as yesterday morning.. He is urine culture grew out Klebsiella pneumoniae which is sensitive to Rocephin. His BNP is elevated just over 1910 and his chest x-ray reveals no change since yesterday which showed he had worsening congestive heart failure. Continue him on his current treatment repeat labs in the morning as well as BMP and a repeat chest x-ray as well. I will decrease his IV fluid to KVO. Past Medical Family Social History Past Med/Fam/Surg Hx: No changes since H&P Allergies: Allergies No Known Drug Allergies Allergy (Verified 12/14/21 13:19) Review of Systems ROS: No change since H&P Vital Signs and I&O's Vital Signs: Temperature 97.5 F Pulse Rate [Left Brachial] 114 Pulse Rate 104 Respiratory Rate 20 Blood Pressure [Right Arm] 111/52 Blood Pressure [Left Arm] 98/59 Blood Pressure 118/61 O2 Sat by Pulse Oximetry 95 Intake and Output: Intake & Output 12/17/21 12/18/21 12/19/21 12/20/21 11:59 11:59 11:59 11:59 Intake Total 3501 / 3501 2414 / 2414 1971 / 1971 600 / 600 Output Total 2325 / 2325 1950 / 1950 1615 / 1615 700 / 700 Balance 1176 / 1176 464 / 464 357 / 357 -100 / -100 Physical Exam Oriented: Normal Eyes: Normal Ear: Normal Nose: Normal Throat: Normal Respiratory: Generalized, Diminished and Rales Cardiovascular: Edema (BLE 2+ PITTING EDEMA ) : Normal Auscultation: Bowel Sounds: Normal Tenderness: Normal Skin: Normal Musculoskeletal: Normal Psychiatric: Normal Mood Description: Calm Affect: Normal Speech Pattern: Clear and Delayed Laboratory and Diagnostics Result Diagrams: 12/19/21 04:52 12/19/21 04:52 Labs: 12/14/21 14:57 Urine,Catheterized Urine Culture - Final Klebsiella Pneumoniae Laboratory WBC 6.5 X10^3/uL (3.6-10.0) 12/19/21 04:52 RBC 4.15 X10^6/uL (4.7-6.0) L 12/19/21 04:52 Hgb 12.1 g/dL (13.5-18.0) L 12/19/21 04:52 Hct 36.7 % (42.0-54.0) L 12/19/21 04:52 MCV 88.5 fL (80.0-100.0) 12/19/21 04:52 MCH 29.1 pg (27.0-34.0) 12/19/21 04:52 MCHC 32.9 g/dL (33.0-35.0) L 12/19/21 04:52 RDW 17.6 % (11.6-16.5) H 12/19/21 04:52 Plt Count 192 X10^3/uL (150.0-450.0) 12/19/21 04:52 MPV 10.6 fL (7.4-11.0) 12/19/21 04:52 Neut % (Auto) 64.6 % (42.0-75.0) 12/19/21 04:52 Lymph % (Auto) 17.5 % (21.0-51.0) L 12/19/21 04:52 [place] % (Auto) 12.3 % (0.0-13.0) 12/19/21 04:52 Eos % (Auto) 4.4 % (0.9-2.9) H 12/19/21 04:52 Baso % (Auto) 1.2 % (0.2-1.0) H 12/19/21 04:52 Neut # (Auto) 4.2 x10^3/uL (2.2-4.8) 12/19/21 04:52 Lymph # (Auto) 1.1 X10^3/uL (1.3-2.9) L 12/19/21 04:52 [place] # (Auto) 0.8 x10^3/uL (0.3-0.8) 12/19/21 04:52 Eos # (Auto) 0.3 x10^3/uL (0.0-0.2) H 12/19/21 04:52 Baso # (Auto) 0.1 X10^3/uL (0.0-0.1) 12/19/21 04:52 Absolute Nucleated RBC 0.1 /100WBC 12/19/21 04:52 Sodium 137 mmol/L (136-145) 12/19/21 04:52 Corrected Sodium 138 mmol/L (136-145) 12/19/21 04:52 Potassium 3.7 mmol/L (3.5-5.1) 12/19/21 04:52 Chloride 102 mmol/L (98-107) 12/19/21 04:52 Carbon Dioxide 26.5 mmol/L (21-32) 12/19/21 04:52 BUN 38 mg/dL (7-18) H 12/19/21 04:52 Creatinine 1.59 mg/dL (0.70-1.30) H 12/19/21 04:52 Est GFR (MDRD) Af Amer 53 (>60) L 12/19/21 04:52 Est GFR (MDRD) Non-Af 44 (>60) L 12/19/21 04:52 Glucose 160 mg/dL (65-99) H 12/19/21 04:52 POC Glucose (mg/dL) 158 mg/dL (65-99) H 12/14/21 13:10 Lactic Acid 1.7 mmol/L (0.4-2.0) 12/14/21 14:00 Calcium 8.3 mg/dL (8.5-10.1) L 12/19/21 04:52 Corrected Calcium 9.2 mg/dL (8.5-10.1) 12/19/21 04:52 Magnesium 2.1 mg/dL (1.7-2.9) 12/18/21 06:22 Total Bilirubin 0.60 mg/dL (0.2-1.0) 12/19/21 04:52 AST 32 Units/L (15-37) 12/19/21 04:52 ALT 13 Units/L (12-78) 12/19/21 04:52 Alkaline Phosphatase 175 Units/L (46-116) H 12/19/21 04:52 Creatine Kinase 30 Units/L (39-308) L 12/16/21 17:21 CK-MB (CK-2) < 1.0 ng/mL (0-4.0) 12/16/21 17:21 CK/CKMB % Calc 3.3 % (<4) 12/16/21 17:21 Troponin I High Sens 37.1 ng/L (4.0-60.0) 12/16/21 17:21 B-Natriuretic Peptide 1910 pg/mL (0-79) H* 12/19/21 04:52 Total Protein 7.3 g/dL (6.4-8.2) 12/19/21 04:52 Albumin 2.9 g/dL (3.4-5.0) L 12/19/21 04:52 Globulin 4.4 g/dL (2.5-4.5) 12/19/21 04:52 Albumin/Globulin Ratio 0.7 Ratio (1.1-2.1) L 12/19/21 04:52 Lipase 267 Units/L (73-393) 12/14/21 13:10 Specimen Type Catherized urine 12/14/21 14:57 Urine Color Yellow (YELLOW) 12/14/21 14:57 Urine Appearance Cloudy (CLEAR) 12/14/21 14:57 Urine pH 7.0 (5.0 - 8.0) 12/14/21 14:57 Ur Specific [place] 1.010 (1.000-1.030) 12/14/21 14:57 Urine Protein 2+ (NEGATIVE) 12/14/21 14:57 Urine Glucose (UA) Negative (NEGATIVE) 12/14/21 14:57 Urine Ketones Negative (NEGATIVE) 12/14/21 14:57 Urine Blood 2+ (NEGATIVE) 12/14/21 14:57 Urine Nitrite Negative (NEGATIVE) 12/14/21 14:57 Urine Bilirubin Negative (NEGATIVE) 12/14/21 14:57 Urine Urobilinogen Normal (NORMAL) 12/14/21 14:57 Ur Leukocyte Esterase 3+ (NEGATIVE) 12/14/21 14:57 Urine RBC 10-20 /HPF (0-3) A 12/14/21 14:57 Urine WBC Tntc /HPF (0-5) A 12/14/21 14:57 Ur Squamous Epith Cells Moderate /HPF (NEGATIVE) 12/14/21 14:57 Amorphous Sediment 1+ /HPF (NEGATIVE) 12/14/21 14:57 Urine Bacteria 2+ /HPF (NEGATIVE) 12/14/21 14:57 Other Casts Few /LPF (NEGATIVE) 12/14/21 14:57 Ur Culture Indicated? Yes/culture set up 12/14/21 14:57 SARS-CoV-2 (PCR) Negative (NEGATIVE) 12/14/21 15:42 Radiology Reviewed: Yes Plan (1) Congestive heart failure: Status: Chronic Qualifiers: Heart failure chronicity: acute on chronic Heart failure type: unspecified Qualified Code(s): I50.9 - Heart failure, unspecified Plan: I will increase his Lasix to 40 mg IV twice a day from 20 mg twice a day. Repeat chest x-ray and BNP tomorrow morning. (2) Acute on chronic renal failure: Status: Acute Qualifiers: Acute renal failure type: unspecified Chronic kidney disease stage: stage 3 (moderate) Chronic kidney disease stage 3 subtype: stage 3b (GFR 30-44) Qualified Code(s): N17.9 - Acute kidney failure, unspecified; N18.32 - Chronic kidney disease, stage 3b (3) Dehydration: Status: Acute (4) UTI due to Klebsiella species: Status: Acute (5) Dementia: Status: Chronic Qualifiers: Dementia type: unspecified type Dementia behavioral disturbance: without behavioral disturbance Qualified Code(s): F03.90 - Unspecified dementia without behavioral disturbance
[2021-12-20 05:31] LABS: BASOPHILS # (AUTO) 0.1 X10^3/uL (0.0-0.1); EOSINOPHILS # (AUTO) 0.3 x10^3/uL (0.0-0.2); HEMOGLOBIN 11.6 g/dL (13.5-18.0); LYMPHOCYTES # (AUTO) 1.1 X10^3/uL (1.3-2.9); LYMPHOCYTES % (AUTO) 16.9 % (21.0-51.0); MEAN CORPUSCULAR HEMOGLOBIN 29.5 pg (27.0-34.0); MEAN CORPUSCULAR HGB CONC 33.3 g/dL (33.0-35.0); MEAN CORPUSCULAR VOLUME 88.5 fL (80.0-100.0); MEAN PLATELET VOLUME 10.8 fL (7.4-11.0); MONOCYTES # (AUTO) 0.8 x10^3/uL (0.3-0.8); MONOCYTES % (AUTO) 12.1 % (0.0-13.0); NEUTROPHILS # (AUTO) 4.3 x10^3/uL (2.2-4.8); RED BLOOD COUNT 3.95 X10^6/uL (4.7-6.0); RED CELL DISTRIBUTION WIDTH 17.6 % (11.6-16.5); WHITE BLOOD COUNT 6.4 X10^3/uL (3.6-10.0)
[2021-12-20 05:41] LABS: ALBUMIN 2.6 g/dL (3.4-5.0); CALCIUM 8.1 mg/dL (8.5-10.1); CARBON DIOXIDE 25.2 mmol/L (21-32); COR CA(FOR HYPOALB) 9.2 mg/dL (8.5-10.1); CREATININE 1.54 mg/dL (0.70-1.30); TOTAL PROTEIN 6.6 g/dL (6.4-8.2)
--- NOTE | 2021-12-20 06:22 | RAD ---
HISTORYCongestive heart failure, pneumoniaSTUDYChest AP [id number]/24/2022FINDINGSTher e is a pacemaker present in the left axilla. Heart remains enlarged. Pulmonary venous congestion is present. No definite alveolar infiltrates, areas of consolidation, or pleural effusion identified. Bony thorax is unremarkable with the exception of right-sided glenohumeral joint degenerative joint disease.IMPRESSIONCardiomegaly with pulmonary venous congestion unchangedNo definite acute infiltratesElectronically signed by: ADONIS VARGAS (Dec 20, 2021 06:21:33)
[2021-12-20] MEDS: K-DUR TAB 20 MEQ PO PRN (07:48)
[2021-12-20] MEDS: ARICEPT TAB 10 MG PO SCH (08:08)
[2021-12-20] MEDS: ELIQUIS PO SCH ×2 (08:09→21:54)
[2021-12-20] MEDS: FOLIC ACID TAB 1 MG PO SCH (08:09)
[2021-12-20] MEDS: ASPIRIN EC 81 MG PO SCH (08:09)
[2021-12-20] MEDS: LEVAQUIN PREMIX IV 250 MG 250 MG/50 ML BAG IV SCH (08:09)
[2021-12-20] MEDS: MEGACE PO SCH ×2 (08:09→21:54)
[2021-12-20] MEDS: TOPROL XL PO SCH (08:10)
[2021-12-20] MEDS: ROCEPHIN VIAL 1 GRAM 1 G in NS 100 ML IV 100 ML IV SCH (08:10)
[2021-12-20] MEDS: SINEMET (PLAIN) 25/100 MG PO SCH ×2 (08:10→21:55)
[2021-12-20] MEDS: SYNTHROID 75 mcg TAB PO SCH (08:10)
[2021-12-20] MEDS: ROBITUSSIN DM PO SCH ×4 (08:10→21:54)
[2021-12-20] MEDS: LASIX IVP SCH ×2 (08:33→17:18)
[2021-12-20] MEDS: DUONEB 0.5 MG/3 MG (3 mL) NEB SCH ×4 (08:50→21:29)
[2021-12-20] MEDS: PULMICORT NEB TX 0.5 MG NEB SCH ×2 (08:50→21:29)
[2021-12-20] MEDS: ZyPREXA TAB 5 MG PO SCH ×2 (09:07→17:19)
[2021-12-20] MEDS ORDERED: LANOXIN INJ IVP ONE (09:58)
[2021-12-20 11:41] LABS: CKMB % 2.6 % (<4); CREATINE KINASE 38 Units/L (39-308); CREATINE KINASE MB < 1.0 ng/mL (0-4.0)
[2021-12-20 16:03] LABS: CKMB % 2.6 % (<4); CREATINE KINASE 39 Units/L (39-308); CREATINE KINASE MB < 1.0 ng/mL (0-4.0)
[2021-12-20 19:35] LABS: CKMB % 2.6 % (<4); CREATINE KINASE 38 Units/L (39-308); CREATINE KINASE MB < 1.0 ng/mL (0-4.0)
[2021-12-20] MEDS ORDERED: CARDIZEM CD 120 MG 24-HR PO SCH (21:08)
--- NOTE | 2021-12-21 06:00 | RAD ---
HISTORYShortness of breathSTUDYChest AP [id number]/25/2022FINDINGSTher e is a pacemaker present in the left axilla. Heart is enlarged. Mild pulmonary venous congestion is present. No definite alveolar infiltrates are identified. No pleural effusion or pneumothorax is identified. Bony thorax is unremarkable.IMPRESSIONCardiomegaly with pulmonary venous congestion, unchangedNo definite acute infiltratesElectronically signed by: ADONIS VARGAS (Dec 21, 2021 05:59:55)
[2021-12-21 06:22] LABS: BASOPHILS # (AUTO) 0.1 X10^3/uL (0.0-0.1); BASOPHILS % (AUTO) 1.1 % (0.2-1.0); EOSINOPHILS % (AUTO) 0.5 % (0.9-2.9); HEMATOCRIT 37.1 % (42.0-54.0); HEMOGLOBIN 12.3 g/dL (13.5-18.0); LYMPHOCYTES # (AUTO) 1.2 X10^3/uL (1.3-2.9); LYMPHOCYTES % (AUTO) 17.1 % (21.0-51.0); MEAN CORPUSCULAR HEMOGLOBIN 29.4 pg (27.0-34.0); MEAN CORPUSCULAR HGB CONC 33.1 g/dL (33.0-35.0); MEAN CORPUSCULAR VOLUME 88.9 fL (80.0-100.0); MEAN PLATELET VOLUME 10.9 fL (7.4-11.0); MONOCYTES # (AUTO) 1.2 x10^3/uL (0.3-0.8); MONOCYTES % (AUTO) 16.8 % (0.0-13.0); NEUTROPHILS # (AUTO) 4.6 x10^3/uL (2.2-4.8); NEUTROPHILS % (AUTO) 64.5 % (42.0-75.0); RED BLOOD COUNT 4.17 X10^6/uL (4.7-6.0); RED CELL DISTRIBUTION WIDTH 18.4 % (11.6-16.5); WHITE BLOOD COUNT 7.1 X10^3/uL (3.6-10.0)
[2021-12-21 06:33] LABS: ALBUMIN 2.9 g/dL (3.4-5.0); CALCIUM 8.7 mg/dL (8.5-10.1); CARBON DIOXIDE 25.5 mmol/L (21-32); COR CA(FOR HYPOALB) 9.6 mg/dL (8.5-10.1); CREATININE 1.99 mg/dL (0.70-1.30)
[2021-12-21] MEDS ORDERED: NovoLIN R (or HumuLIN R) SC PRN (07:26)
[2021-12-21] MEDS: PULMICORT NEB TX 0.5 MG NEB SCH ×2 (09:16→20:32)
[2021-12-21] MEDS: DUONEB 0.5 MG/3 MG (3 mL) NEB SCH ×4 (09:16→20:32)
[2021-12-21] MEDS: ASPIRIN EC 81 MG PO SCH (09:37)
[2021-12-21] MEDS: SYNTHROID 75 mcg TAB PO SCH (09:38)
[2021-12-21] MEDS: FOLIC ACID TAB 1 MG PO SCH (09:38)
[2021-12-21] MEDS: TOPROL XL PO SCH (09:38)
[2021-12-21] MEDS: SINEMET (PLAIN) 25/100 MG PO SCH ×2 (09:39→21:02)
[2021-12-21] MEDS: ARICEPT TAB 10 MG PO SCH (09:40)
[2021-12-21] MEDS: ELIQUIS PO SCH ×2 (09:40→21:02)
[2021-12-21] MEDS: ULTRAM PO PRN ×2 (09:41→21:03)
[2021-12-21] MEDS: LEVAQUIN PREMIX IV 250 MG 250 MG/50 ML BAG IV SCH (09:45)
[2021-12-21] MEDS: LASIX IVP SCH ×2 (11:02→17:40)
[2021-12-21] MEDS: ROCEPHIN VIAL 1 GRAM 1 G in NS 100 ML IV 100 ML IV SCH (11:02)
[2021-12-21] MEDS ORDERED: CARDIZEM ER 60 MG 12-HR PO ONE (11:10)
[2021-12-21] MEDS: MEGACE PO SCH ×2 (12:30→21:02)
[2021-12-21] MEDS: ROBITUSSIN DM PO SCH ×4 (12:30→21:02)
--- NOTE | 2021-12-21 12:39 | PCM.PROG ---
Progress Note - Progress Note for Day of Date of Exam: 12/20/21 - Subjective Subjective: IS CURRENTLY BEING TREATED FOR CHF, ACUTE ON CHRONIC RENAL FAILURE, A-FIB, UTI, AND DEHYDRATION. TODAY, HE IS ALERT, LYING IN BED ON MORNING ROUNDS. HE IS DISORIENTED AND DOES NOT FOLLOW COMMANDS. NURSING STAFF REPORTS THAT HE HAS BEEN AGITATED THROUGHOUT THE NIGHT. ON EXAMINATION, HE IS TACHYCARDIC WITH HR 120-140. BILATERAL LUNGS NOTED WITH DIMINISHED LUNG SOUNDS THROUGHOUT. ABDOMEN IS ROUND, SOFT, AND NON-TENDER WITH NORMAL BOWEL SOUNDS NOTED IN ALL QUADRANTS. TRACE LOWER EXTREMITY EDEMA NOTED. LIVE CATHETER NOTED TO BEDSIDE DRAINAGE. HIS VITALS THIS MORNING ARE: 97.0-138-24-97%-158/63. LABS WERE OBTAINED. ABNORMAL LAB VALUES INCLUDE THE FOLLOWING: RBC 3.95, HGB 11.6, HCT 35.0, POTASSIUM 3.4, BUN 35, CREATININE 1.54, GLUCOSE 121, CALCIUM 8.0, ALT 10, ALK PHOS 158, BNP 1860, ALBUMIN 2.6. BLOOD CULTURES ARE PENDING. URINE CULTURE IS POSITIVE FOR GROWTH OF KLEBSIELLA PNEUMONIAE. A CHEST XRAY WAS OBTAINED TODAY AND REVEALED: Cardiomegaly with pulmonary venous congestion unchanged. No definite acute infiltrates. HE IS CURRENTLY RECEIVING D5NS AT KVO, LEVAQUIN 250MG IV DIALY, ROCEPHIN 1G IV DAILY, LASIX 40,G OV Q12H, DUONEBS QID, PULMICORT NEBS BID, TUSSIONEX 5ML PO Q12H PRN, HUMULIN R SLIDING SCALE, OTBS ACHS, AND THE POTASSIUM AND MAGNESIUM PROTOCOL. HIS HOME MEDICATIONS OF ELIQUIS, ECOTRIN, SINEMET, ARICEPT, FOLIC ACID, SYNTHROID, MEGACE, TOPROL, KLONOPIN, AND ULTRAM WERE RESUMED. WE WILL DISCONTINUE TH KLONOPIN AND START ZYPREXA 5MG PO BID. WE WILL OBTAIN SERIAL CARDIAC ENZYMES AND EKGS. OTHERWISE, WE PLAN TO FOLLOW UP WITH AM LABS AND CHEST XRAY AND CONTINUE TO MONITOR. TIME SPENT ON CLINICAL ASSESSMENT, REVIEWING LABS AND IMAGING, DECISION MAKING, AND DOCUMENTATION GREATER THAN 45 MINUTES. - Past Medical Family Social History Past Med/Fam/Surg Hx: No changes since H&P Allergies: Allergies No Known Drug Allergies Allergy (Verified 12/14/21 13:19) - Review of Systems ROS: No change since H&P - Vital Signs and I&O's Vital Signs: Temperature 97.6 F Pulse Rate [Left Brachial] 120 Pulse Rate 140 Respiratory Rate 20 Blood Pressure [Right Arm] 112/71 Blood Pressure [Left Arm] 106/59 Blood Pressure 118/61 O2 Sat by Pulse Oximetry 92 Intake and Output: Intake & Output 12/19/21 12/20/21 12/21/21 12/22/21 11:59 11:59 11:59 11:59 Intake Total 1971 / 1971 1381 / 1381 900 / 900 Output Total 1615 / 1615 1850 / 1850 900 / 900 Balance 357 / 357 -469 / -469 0 / 0 - Physical Exam Oriented: Normal Eyes: Normal Ear: Normal Nose: Normal Throat: Normal Respiratory: Generalized, Diminished, Rales Cardiovascular: Edema (BLE 2+ PITTING EDEMA) : Normal Auscultation: Bowel Sounds: Normal Palpation: Normal Tenderness: Normal Skin: Normal Musculoskeletal: Normal Psychiatric: Normal Mood Description: Calm Affect: Normal Speech Pattern: Clear, Delayed - Laboratory and Diagnostics Result Diagrams: 12/21/21 05:37 12/21/21 05:37 Labs: 12/14/21 14:57 Urine,Catheterized Urine Culture - Final Klebsiella Pneumoniae Laboratory WBC 7.1 X10^3/uL (3.6-10.0) 12/21/21 05:37 RBC 4.17 X10^6/uL (4.7-6.0) L 12/21/21 05:37 Hgb 12.3 g/dL (13.5-18.0) L 12/21/21 05:37 Hct 37.1 % (42.0-54.0) L 12/21/21 05:37 MCV 88.9 fL (80.0-100.0) 12/21/21 05:37 MCH 29.4 pg (27.0-34.0) 12/21/21 05:37 MCHC 33.1 g/dL (33.0-35.0) 12/21/21 05:37 RDW 18.4 % (11.6-16.5) H 12/21/21 05:37 Plt Count 166 X10^3/uL (150.0-450.0) 12/21/21 05:37 MPV 10.9 fL (7.4-11.0) 12/21/21 05:37 Neut % (Auto) 64.5 % (42.0-75.0) 12/21/21 05:37 Lymph % (Auto) 17.1 % (21.0-51.0) L 12/21/21 05:37 [place] % (Auto) 16.8 % (0.0-13.0) H 12/21/21 05:37 Eos % (Auto) 0.5 % (0.9-2.9) L 12/21/21 05:37 Baso % (Auto) 1.1 % (0.2-1.0) H 12/21/21 05:37 Neut # (Auto) 4.6 x10^3/uL (2.2-4.8) 12/21/21 05:37 Lymph # (Auto) 1.2 X10^3/uL (1.3-2.9) L 12/21/21 05:37 [place] # (Auto) 1.2 x10^3/uL (0.3-0.8) H 12/21/21 05:37 Eos # (Auto) 0.0 x10^3/uL (0.0-0.2) 12/21/21 05:37 Baso # (Auto) 0.1 X10^3/uL (0.0-0.1) 12/21/21 05:37 Absolute Nucleated RBC 0.2 /100WBC 12/21/21 05:37 Sodium 140 mmol/L (136-145) 12/21/21 05:37 Corrected Sodium 141 mmol/L (136-145) 12/21/21 05:37 Potassium 4.4 mmol/L (3.5-5.1) 12/21/21 05:37 Chloride 103 mmol/L (98-107) 12/21/21 05:37 Carbon Dioxide 25.5 mmol/L (21-32) 12/21/21 05:37 BUN 45 mg/dL (7-18) H 12/21/21 05:37 Creatinine 1.99 mg/dL (0.70-1.30) H 12/21/21 05:37 Est GFR (MDRD) Af Amer 41 (>60) L 12/21/21 05:37 Est GFR (MDRD) Non-Af 34 (>60) L 12/21/21 05:37 Glucose 126 mg/dL (65-99) H 12/21/21 05:37 POC Glucose (mg/dL) 158 mg/dL (65-99) H 12/14/21 13:10 Lactic Acid 1.7 mmol/L (0.4-2.0) 12/14/21 14:00 Calcium 8.7 mg/dL (8.5-10.1) 12/21/21 05:37 Corrected Calcium 9.6 mg/dL (8.5-10.1) 12/21/21 05:37 Magnesium 2.1 mg/dL (1.7-2.9) 12/18/21 06:22 Total Bilirubin 1.00 mg/dL (0.2-1.0) 12/21/21 05:37 AST 28 Units/L (15-37) 12/21/21 05:37 ALT 14 Units/L (12-78) 12/21/21 05:37 Alkaline Phosphatase 172 Units/L (46-116) H 12/21/21 05:37 Creatine Kinase 38 Units/L (39-308) L 12/20/21 19:07 CK-MB (CK-2) < 1.0 ng/mL (0-4.0) 12/20/21 19:07 CK/CKMB % Calc 2.6 % (<4) 12/20/21 19:07 Troponin I High Sens 38.6 ng/L (4.0-60.0) 12/20/21 19:07 B-Natriuretic Peptide 2200 pg/mL (0-79) H* 12/21/21 05:37 Total Protein 7.0 g/dL (6.4-8.2) 12/21/21 05:37 Albumin 2.9 g/dL (3.4-5.0) L 12/21/21 05:37 Globulin 4.1 g/dL (2.5-4.5) 12/21/21 05:37 Albumin/Globulin Ratio 0.7 Ratio (1.1-2.1) L 12/21/21 05:37 Lipase 267 Units/L (73-393) 12/14/21 13:10 Specimen Type Catherized urine 12/14/21 14:57 Urine Color Yellow (YELLOW) 12/14/21 14:57 Urine Appearance Cloudy (CLEAR) 12/14/21 14:57 Urine pH 7.0 (5.0 - 8.0) 12/14/21 14:57 Ur Specific [place] 1.010 (1.000-1.030) 12/14/21 14:57 Urine Protein 2+ (NEGATIVE) 12/14/21 14:57 Urine Glucose (UA) Negative (NEGATIVE) 12/14/21 14:57 Urine Ketones Negative (NEGATIVE) 12/14/21 14:57 Urine Blood 2+ (NEGATIVE) 12/14/21 14:57 Urine Nitrite Negative (NEGATIVE) 12/14/21 14:57 Urine Bilirubin Negative (NEGATIVE) 12/14/21 14:57 Urine Urobilinogen Normal (NORMAL) 12/14/21 14:57 Ur Leukocyte Esterase 3+ (NEGATIVE) 12/14/21 14:57 Urine RBC 10-20 /HPF (0-3) A 12/14/21 14:57 Urine WBC Tntc /HPF (0-5) A 12/14/21 14:57 Ur Squamous Epith Cells Moderate /HPF (NEGATIVE) 12/14/21 14:57 Amorphous Sediment 1+ /HPF (NEGATIVE) 12/14/21 14:57 Urine Bacteria 2+ /HPF (NEGATIVE) 12/14/21 14:57 Other Casts Few /LPF (NEGATIVE) 12/14/21 14:57 Ur Culture Indicated? Yes/culture set up 12/14/21 14:57 SARS-CoV-2 (PCR) Negative (NEGATIVE) 12/14/21 15:42 - Plan (1) Congestive heart failure Status: Chronic Qualifiers: Heart failure type: unspecified Heart failure chronicity: acute on chronic Qualified Code(s): I50.9 - Heart failure, unspecified Plan: D5NS AT KVO, LEVAQUIN 250MG IV DIALY, ROCEPHIN 1G IV DAILY, LASIX 40,G OV Q12H, DUONEBS QID, PULMICORT NEBS BID, TUSSIONEX 5ML PO Q12H PRN, HUMULIN R SLIDING SCALE, OTBS ACHS, AND THE POTASSIUM AND MAGNESIUM PROTOCOL. 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
--- NOTE | 2021-12-21 12:45 | PCM.PROG ---
Progress Note - Progress Note for Day of Date of Exam: 12/21/21 - Subjective Subjective: IS CURRENTLY BEING TREATED FOR CHF, ACUTE ON CHRONIC RENAL FAILURE, A-FIB, UTI, AND DEHYDRATION. TODAY, HE IS ALERT, SITTING UP IN CHAIR ON MORNING ROUNDS. HE IS DISORIENTED AND DOES NOT FOLLOW COMMANDS. HE MUMBLES WHEN SPOKEN TO. NURSING STAFF REPORTS THAT HE HAS BEEN AGITATED THROUGHOUT THE NIGHT AND HASNT SLEPT WELL. ON EXAMINATION, HE IS TACHYCARDIC WITH HR 90-120. BILATERAL LUNGS NOTED WITH DIMINISHED LUNG SOUNDS THROUGHOUT. ABDOMEN IS ROUND, SOFT, AND NON-TENDER WITH NORMAL BOWEL SOUNDS NOTED IN ALL QUADRANTS. TRACE LOWER EXTREMITY EDEMA NOTED. LIVE CATHETER NOTED TO BEDSIDE DRAINAGE. HIS VITALS THIS MORNING ARE: 97.6-120-28-97%-112/71. LABS WERE OBTAINED. ABNORMAL LA B VALUES INCLUDE THE FOLLOWING: RBC 4.17, HGB 12.3, HCT 37.1, BUN 45, CREATININE 1.99, GLUCOSE 126, ALK PHOS 172, BNP 2200, ALBUMIN 2.9. CARDIAC ENZYMES NORMAL. BLOOD CULTURES ARE PENDING. URINE CULTURE IS POSITIVE FOR GROWTH OF KLEBSIELLA PNEUMONIAE. A CHEST XRAY WAS OBTAINED TODAY AND REVEALED: Cardiomegaly with pulmonary venous congestion unchanged. No definite acute infiltrates. HE IS CURRENTLY RECEIVING D5NS AT KVO, LEVAQUIN 250MG IV DAILY, ROCEPHIN 1G IV DAILY, LASIX 40MG IV Q12H, CARDIZEM CD 120MG PO DAILY, DUONEBS QID, PULMICORT NEBS BID, ZYPREXA 5MG PO BID, TUSSIONEX 5ML PO Q12H PRN, HUMULIN R SLIDING SCALE, OTBS ACHS, AND THE POTASSIUM AND MAGNESIUM PROTOCOL. HIS HOME MEDICATIONS OF ELIQUIS, ECOTRIN, SINEMET, ARICEPT, FOLIC ACID, SYNTHROID, MEGACE, TOPROL, AND ULTRAM WERE RESUMED. WE WILL INCREASE ZYPREXA TO 10MG BID AND INCREASE CARDIZEM TO 180MG PO DAILY. OTHERWISE, WE PLAN TO FOLLOW UP WITH AM LABS AND CHEST XRAY AND CONTINUE TO MONITOR. TIME SPENT ON CLINICAL ASSESSMENT, REVIEWING LABS AND IMAGING, DECISION MAKING, AND DOCUMENTATION GREATER THAN 45 MINUTES. - Past Medical Family Social History Past Med/Fam/Surg Hx: No changes since H&P Allergies: Allergies No Known Drug Allergies Allergy (Verified 12/14/21 13:19) - Review of Systems ROS: No change since H&P - Vital Signs and I&O's Vital Signs: Temperature 97.6 F Pulse Rate [Left Brachial] 120 Pulse Rate 140 Respiratory Rate 20 Blood Pressure [Right Arm] 112/71 Blood Pressure [Left Arm] 106/59 Blood Pressure 118/61 O2 Sat by Pulse Oximetry 92 Intake and Output: Intake & Output 12/19/21 12/20/21 12/21/21 12/22/21 11:59 11:59 11:59 11:59 Intake Total 1971 / 1971 1381 / 1381 900 / 900 Output Total 1615 / 1615 1850 / 1850 900 / 900 Balance 357 / 357 -469 / -469 0 / 0 - Physical Exam Oriented: Normal Eyes: Normal Ear: Normal Nose: Normal Throat: Normal Respiratory: Generalized, Diminished, Rales Cardiovascular: Edema (BLE 2+ PITTING EDEMA) : Normal Auscultation: Bowel Sounds: Normal Tenderness: Normal Skin: Normal Musculoskeletal: Normal Psychiatric: Normal Mood Description: Calm Affect: Normal Speech Pattern: Clear, Delayed - Laboratory and Diagnostics Result Diagrams: 12/21/21 05:37 12/21/21 05:37 Labs: 12/14/21 14:57 Urine,Catheterized Urine Culture - Final Klebsiella Pneumoniae Laboratory WBC 7.1 X10^3/uL (3.6-10.0) 12/21/21 05:37 RBC 4.17 X10^6/uL (4.7-6.0) L 12/21/21 05:37 Hgb 12.3 g/dL (13.5-18.0) L 12/21/21 05:37 Hct 37.1 % (42.0-54.0) L 12/21/21 05:37 MCV 88.9 fL (80.0-100.0) 12/21/21 05:37 MCH 29.4 pg (27.0-34.0) 12/21/21 05:37 MCHC 33.1 g/dL (33.0-35.0) 12/21/21 05:37 RDW 18.4 % (11.6-16.5) H 12/21/21 05:37 Plt Count 166 X10^3/uL (150.0-450.0) 12/21/21 05:37 MPV 10.9 fL (7.4-11.0) 12/21/21 05:37 Neut % (Auto) 64.5 % (42.0-75.0) 12/21/21 05:37 Lymph % (Auto) 17.1 % (21.0-51.0) L 12/21/21 05:37 [place] % (Auto) 16.8 % (0.0-13.0) H 12/21/21 05:37 Eos % (Auto) 0.5 % (0.9-2.9) L 12/21/21 05:37 Baso % (Auto) 1.1 % (0.2-1.0) H 12/21/21 05:37 Neut # (Auto) 4.6 x10^3/uL (2.2-4.8) 12/21/21 05:37 Lymph # (Auto) 1.2 X10^3/uL (1.3-2.9) L 12/21/21 05:37 [place] # (Auto) 1.2 x10^3/uL (0.3-0.8) H 12/21/21 05:37 Eos # (Auto) 0.0 x10^3/uL (0.0-0.2) 12/21/21 05:37 Baso # (Auto) 0.1 X10^3/uL (0.0-0.1) 12/21/21 05:37 Absolute Nucleated RBC 0.2 /100WBC 12/21/21 05:37 Sodium 140 mmol/L (136-145) 12/21/21 05:37 Corrected Sodium 141 mmol/L (136-145) 12/21/21 05:37 Potassium 4.4 mmol/L (3.5-5.1) 12/21/21 05:37 Chloride 103 mmol/L (98-107) 12/21/21 05:37 Carbon Dioxide 25.5 mmol/L (21-32) 12/21/21 05:37 BUN 45 mg/dL (7-18) H 12/21/21 05:37 Creatinine 1.99 mg/dL (0.70-1.30) H 12/21/21 05:37 Est GFR (MDRD) Af Amer 41 (>60) L 12/21/21 05:37 Est GFR (MDRD) Non-Af 34 (>60) L 12/21/21 05:37 Glucose 126 mg/dL (65-99) H 12/21/21 05:37 POC Glucose (mg/dL) 158 mg/dL (65-99) H 12/14/21 13:10 Lactic Acid 1.7 mmol/L (0.4-2.0) 12/14/21 14:00 Calcium 8.7 mg/dL (8.5-10.1) 12/21/21 05:37 Corrected Calcium 9.6 mg/dL (8.5-10.1) 12/21/21 05:37 Magnesium 2.1 mg/dL (1.7-2.9) 12/18/21 06:22 Total Bilirubin 1.00 mg/dL (0.2-1.0) 12/21/21 05:37 AST 28 Units/L (15-37) 12/21/21 05:37 ALT 14 Units/L (12-78) 12/21/21 05:37 Alkaline Phosphatase 172 Units/L (46-116) H 12/21/21 05:37 Creatine Kinase 38 Units/L (39-308) L 12/20/21 19:07 CK-MB (CK-2) < 1.0 ng/mL (0-4.0) 12/20/21 19:07 CK/CKMB % Calc 2.6 % (<4) 12/20/21 19:07 Troponin I High Sens 38.6 ng/L (4.0-60.0) 12/20/21 19:07 B-Natriuretic Peptide 2200 pg/mL (0-79) H* 12/21/21 05:37 Total Protein 7.0 g/dL (6.4-8.2) 12/21/21 05:37 Albumin 2.9 g/dL (3.4-5.0) L 12/21/21 05:37 Globulin 4.1 g/dL (2.5-4.5) 12/21/21 05:37 Albumin/Globulin Ratio 0.7 Ratio (1.1-2.1) L 12/21/21 05:37 Lipase 267 Units/L (73-393) 12/14/21 13:10 Specimen Type Catherized urine 12/14/21 14:57 Urine Color Yellow (YELLOW) 12/14/21 14:57 Urine Appearance Cloudy (CLEAR) 12/14/21 14:57 Urine pH 7.0 (5.0 - 8.0) 12/14/21 14:57 Ur Specific [place] 1.010 (1.000-1.030) 12/14/21 14:57 Urine Protein 2+ (NEGATIVE) 12/14/21 14:57 Urine Glucose (UA) Negative (NEGATIVE) 12/14/21 14:57 Urine Ketones Negative (NEGATIVE) 12/14/21 14:57 Urine Blood 2+ (NEGATIVE) 12/14/21 14:57 Urine Nitrite Negative (NEGATIVE) 12/14/21 14:57 Urine Bilirubin Negative (NEGATIVE) 12/14/21 14:57 Urine Urobilinogen Normal (NORMAL) 12/14/21 14:57 Ur Leukocyte Esterase 3+ (NEGATIVE) 12/14/21 14:57 Urine RBC 10-20 /HPF (0-3) A 12/14/21 14:57 Urine WBC Tntc /HPF (0-5) A 12/14/21 14:57 Ur Squamous Epith Cells Moderate /HPF (NEGATIVE) 12/14/21 14:57 Amorphous Sediment 1+ /HPF (NEGATIVE) 12/14/21 14:57 Urine Bacteria 2+ /HPF (NEGATIVE) 12/14/21 14:57 Other Casts Few /LPF (NEGATIVE) 12/14/21 14:57 Ur Culture Indicated? Yes/culture set up 12/14/21 14:57 SARS-CoV-2 (PCR) Negative (NEGATIVE) 12/14/21 15:42 - Plan (1) Congestive heart failure Status: Chronic Qualifiers: Heart failure type: unspecified Heart failure chronicity: acute on chronic Qualified Code(s): I50.9 - Heart failure, unspecified Plan: D5NS AT KVO, LEVAQUIN 250MG IV DIALY, ROCEPHIN 1G IV DAILY, LASIX 40MG IV Q12H, DUONEBS QID, PULMICORT NEBS BID, ZYPREXA 10MG PO HS, CARDIZEM CD 180MG PO DAILY, TUSSIONEX 5ML PO Q12H PRN, HUMULIN R SLIDING SCALE, OTBS ACHS, AND THE POTASSIUM AND MAGNESIUM PROTOCOL. 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
[2021-12-21] MEDS ORDERED: CARDIZEM ER 60 MG 12-HR PO NR (15:00)
[2021-12-21] MEDS: ZyPREXA TAB 5 MG PO SCH (18:07)
[2021-12-22 06:14] LABS: BASOPHILS # (AUTO) 0.1 X10^3/uL (0.0-0.1); EOSINOPHILS # (AUTO) 0.2 x10^3/uL (0.0-0.2); EOSINOPHILS % (AUTO) 2.1 % (0.9-2.9); HEMOGLOBIN 11.4 g/dL (13.5-18.0); LYMPHOCYTES # (AUTO) 1.3 X10^3/uL (1.3-2.9); LYMPHOCYTES % (AUTO) 18.8 % (21.0-51.0); MEAN CORPUSCULAR HEMOGLOBIN 29.5 pg (27.0-34.0); MEAN CORPUSCULAR HGB CONC 33.6 g/dL (33.0-35.0); MEAN CORPUSCULAR VOLUME 87.6 fL (80.0-100.0); MEAN PLATELET VOLUME 10.3 fL (7.4-11.0); MONOCYTES # (AUTO) 0.9 x10^3/uL (0.3-0.8); MONOCYTES % (AUTO) 13.2 % (0.0-13.0); NEUTROPHILS # (AUTO) 4.7 x10^3/uL (2.2-4.8); NEUTROPHILS % (AUTO) 64.9 % (42.0-75.0); RED BLOOD COUNT 3.88 X10^6/uL (4.7-6.0); RED CELL DISTRIBUTION WIDTH 17.9 % (11.6-16.5); WHITE BLOOD COUNT 7.2 X10^3/uL (3.6-10.0)
[2021-12-22 06:26] LABS: ALBUMIN 2.6 g/dL (3.4-5.0); CALCIUM 8.3 mg/dL (8.5-10.1); COR CA(FOR HYPOALB) 9.4 mg/dL (8.5-10.1); CREATININE 1.81 mg/dL (0.70-1.30); TOTAL PROTEIN 6.4 g/dL (6.4-8.2)
--- NOTE | 2021-12-22 06:40 | RAD ---
HISTORYShortness of breathSTUDYChest AP [id number]/26/2022FINDINGSTher e is a pacemaker present in the left axilla. Heart remains enlarged. Mild pulmonary venous congestion is present. No definite interstitial edema, alveolar edema, or alveolar infiltrates are identified. Slight haziness in the right lung base likely represents some fluid within the fissure. No pneumothorax identified. Bony thorax is unremarkable.IMPRESSIONCardiomegaly with mild pulmonary venous congestion unchangedNo definite infiltratesSuspect small right pleural effusionElectronically signed by: ADONIS VARGAS (Dec 22, 2021 06:40:03)
[2021-12-22] MEDS: DUONEB 0.5 MG/3 MG (3 mL) NEB SCH ×4 (08:30→20:23)
[2021-12-22] MEDS: PULMICORT NEB TX 0.5 MG NEB SCH ×2 (08:31→20:23)
[2021-12-22] MEDS: ROCEPHIN VIAL 1 GRAM 1 G in NS 100 ML IV 100 ML IV SCH (09:16)
[2021-12-22] MEDS: FOLIC ACID TAB 1 MG PO SCH (09:17)
[2021-12-22] MEDS: ELIQUIS PO SCH ×2 (09:17→20:00)
[2021-12-22] MEDS: ASPIRIN EC 81 MG PO SCH (09:17)
[2021-12-22] MEDS: LASIX IVP SCH ×2 (09:17→17:34)
[2021-12-22] MEDS: LEVAQUIN PREMIX IV 250 MG 250 MG/50 ML BAG IV SCH (09:17)
[2021-12-22] MEDS: ROBITUSSIN DM PO SCH ×4 (09:17→20:00)
[2021-12-22] MEDS: TOPROL XL PO SCH (09:17)
[2021-12-22] MEDS: ARICEPT TAB 10 MG PO SCH (09:17)
[2021-12-22] MEDS: MEGACE PO SCH ×2 (09:17→20:00)
[2021-12-22] MEDS: SYNTHROID 75 mcg TAB PO SCH (09:18)
[2021-12-22] MEDS: ZyPREXA TAB 5 MG PO SCH ×2 (09:18→17:34)
[2021-12-22] MEDS: SINEMET (PLAIN) 25/100 MG PO SCH ×2 (09:18→20:00)
[2021-12-22] MEDS: CARDIZEM CD 180 MG 24-HR PO SCH (09:18)
[2021-12-22] MEDS: ULTRAM PO PRN (20:00)
[2021-12-23] MEDS: ULTRAM PO PRN (04:07)
--- NOTE | 2021-12-23 06:17 | RAD ---
HISTORYSOB Relevant Clinical InformationSTUDYCHEST, 1 [id number]/27/2022FINDINGSThe trachea is midline. Permanent pacing device. The cardiac silhouette is enlarged. Pulmonary vasculature within normal limits.. The lungs are clear without focal infiltrate or effusion. The bony thorax is unremarkable.IMPRESSIONCardiomegaly.No active cardiopulmonary disease.Electronically signed by: Jeb Brand (Dec 23, 2021 06:16:38)
[2021-12-23 06:47] LABS: BASOPHILS # (AUTO) 0.1 X10^3/uL (0.0-0.1); BASOPHILS % (AUTO) 0.8 % (0.2-1.0); EOSINOPHILS # (AUTO) 0.1 x10^3/uL (0.0-0.2); EOSINOPHILS % (AUTO) 1.9 % (0.9-2.9); HEMATOCRIT 33.4 % (42.0-54.0); HEMOGLOBIN 11.3 g/dL (13.5-18.0); LYMPHOCYTES % (AUTO) 14.9 % (21.0-51.0); MEAN CORPUSCULAR HEMOGLOBIN 29.7 pg (27.0-34.0); MEAN CORPUSCULAR HGB CONC 33.8 g/dL (33.0-35.0); MEAN CORPUSCULAR VOLUME 87.6 fL (80.0-100.0); MEAN PLATELET VOLUME 10.2 fL (7.4-11.0); MONOCYTES # (AUTO) 0.8 x10^3/uL (0.3-0.8); MONOCYTES % (AUTO) 12.2 % (0.0-13.0); NEUTROPHILS # (AUTO) 4.8 x10^3/uL (2.2-4.8); NEUTROPHILS % (AUTO) 70.2 % (42.0-75.0); RED BLOOD COUNT 3.81 X10^6/uL (4.7-6.0); RED CELL DISTRIBUTION WIDTH 18.3 % (11.6-16.5); WHITE BLOOD COUNT 6.9 X10^3/uL (3.6-10.0)
[2021-12-23 07:01] LABS: ALANINE AMINOTRANSFERASE 7 Units/L (12-78); ALBUMIN 2.6 g/dL (3.4-5.0); ALKALINE PHOSPHATASE 151 Units/L (46-116); ASPARTATE AMINO TRANSFERASE 26 Units/L (15-37); BLOOD UREA NITROGEN 36 mg/dL (7-18); CALCIUM 8.1 mg/dL (8.5-10.1); CARBON DIOXIDE 23.8 mmol/L (21-32); CHLORIDE 102 mmol/L (98-107); COR CA(FOR HYPOALB) 9.2 mg/dL (8.5-10.1); CREATININE 1.78 mg/dL (0.70-1.30); SODIUM 139 mmol/L (136-145); TOTAL PROTEIN 6.4 g/dL (6.4-8.2); eGFR NON BLACK RACES 39 (>60)
[2021-12-23] MEDS: DUONEB 0.5 MG/3 MG (3 mL) NEB SCH ×4 (08:50→21:10)
[2021-12-23] MEDS: PULMICORT NEB TX 0.5 MG NEB SCH ×2 (08:50→21:10)
[2021-12-23] MEDS: ARICEPT TAB 10 MG PO SCH (10:45)
[2021-12-23] MEDS: CARDIZEM CD 180 MG 24-HR PO SCH (10:45)
[2021-12-23] MEDS: FOLIC ACID TAB 1 MG PO SCH (10:45)
[2021-12-23] MEDS: ASPIRIN EC 81 MG PO SCH (10:45)
[2021-12-23] MEDS: ELIQUIS PO SCH ×2 (10:45→20:17)
[2021-12-23] MEDS: ZyPREXA TAB 5 MG PO SCH ×2 (11:09→18:31)
[2021-12-23] MEDS: MEGACE PO SCH ×2 (11:09→20:17)
[2021-12-23] MEDS: ROBITUSSIN DM PO SCH ×4 (11:09→20:17)
[2021-12-23] MEDS: ROCEPHIN VIAL 1 GRAM 1 G in NS 100 ML IV 100 ML IV SCH (11:09)
[2021-12-23] MEDS: TOPROL XL PO SCH (11:09)
[2021-12-23] MEDS: LEVAQUIN PREMIX IV 250 MG 250 MG/50 ML BAG IV SCH (11:09)
[2021-12-23] MEDS: SYNTHROID 75 mcg TAB PO SCH (11:09)
[2021-12-23] MEDS: SINEMET (PLAIN) 25/100 MG PO SCH ×2 (11:10→20:17)
[2021-12-23] MEDS: K-DUR TAB 20 MEQ PO PRN (11:10)
[2021-12-23] MEDS: MAGNESIUM SULFATE 1 GRAM/100 mL PREMIX 1 G/100 ML BAG IV PRN (11:10)
[2021-12-23] MEDS: LASIX IVP SCH ×2 (11:17→17:34)
--- NOTE | 2021-12-23 13:47 | PCM.PROG ---
Progress Note - Progress Note for Day of Date of Exam: 12/22/21 - Subjective Subjective: IS CURRENTLY BEING TREATED FOR CHF, ACUTE ON CHRONIC RENAL FAILURE, A-FIB, UTI, AND DEHYDRATION. TODAY, HE IS ALERT, SITTING UP IN CHAIR ON MORNING ROUNDS. HE IS DISORIENTED AND DOES NOT FOLLOW COMMANDS. HE MUMBLES WHEN SPOKEN TO. NURSING STAFF REPORTS THAT HE HAS BEEN AGITATED THROUGHOUT THE NIGHT AND HASNT SLEPT WELL. ON EXAMINATION, HE IS TACHYCARDIC WITH HR 90-120. BILATERAL LUNGS NOTED WITH DIMINISHED LUNG SOUNDS THROUGHOUT. ABDOMEN IS ROUND, SOFT, AND NON-TENDER WITH NORMAL BOWEL SOUNDS NOTED IN ALL QUADRANTS. TRACE LOWER EXTREMITY EDEMA NOTED. LIVE CATHETER NOTED TO BEDSIDE DRAINAGE. HIS VITALS THIS MORNING ARE: 97.0-119-20-94%-138/81. LABS WERE OBTAINED. ABNORMAL LA B VALUES INCLUDE THE FOLLOWING: RBC 3.88, HGB 11.4, HCT 34.0, BUN 44, CREATININE 1.81, GLUCOSE 117, CALCIUM 8.3, ALT 9, ALK PHOS 156, BNP 1320, ALBUMIN 2.6. CARDIAC ENZYMES NORMAL. BLOOD CULTURES ARE PENDING. URINE CULTURE IS POSITIVE FOR GROWTH OF KLEBSIELLA PNEUMONIAE. A CHEST XRAY WAS OBTAINED TODAY AND REVEALED: Cardiomegaly with mild pulmonary venous congestion unchanged. No definite infiltrates. Suspect small right pleural effusion. HE IS CURRENTLY RECEIVING D5NS AT KVO, LEVAQUIN 250MG IV DAILY, ROCEPHIN 1G IV DAILY, LASIX 40MG IV Q12H, CARDIZEM CD 180MG PO DAILY, DUONEBS QID, PULMICORT NEBS BID, ZYPREXA 10MG PO BID, TUSSIONEX 5ML PO Q12H PRN, HUMULIN R SLIDING SCALE, OTBS ACHS, AND THE POTASSIUM AND MAGNESIUM PROTOCOL. HIS HOME MEDICATIONS OF ELIQUIS, ECOTRIN, SINEMET, ARICEPT, FOLIC ACID, SYNTHROID, MEGACE, TOPROL, AND ULTRAM WERE RESUMED. WE WILL CONTINUE WITH CURRENT PLAN OF CARE TODAY. OTHERWISE, WE PLAN TO FOLLOW UP WITH AM LABS AND CHEST XRAY AND CONTINUE TO MONITOR. TIME SPENT ON CLINICAL ASSESSMENT, REVIEWING LABS AND IMAGING, DECISION MAKING, AND DOCUMENTATION GREATER THAN 45 MINUTES. - Past Medical Family Social History Past Med/Fam/Surg Hx: No changes since H&P Allergies: Allergies No Known Drug Allergies Allergy (Verified 12/14/21 13:19) - Review of Systems ROS: No change since H&P - Vital Signs and I&O's Vital Signs: Temperature 98.1 F Pulse Rate [Left Brachial] 166 Pulse Rate 103 Respiratory Rate 20 Blood Pressure [Right Arm] 109/67 Blood Pressure [Left Arm] 144/64 Blood Pressure 118/61 O2 Sat by Pulse Oximetry 93 Intake and Output: Intake & Output 12/21/21 12/22/21 12/23/21 12/24/21 11:59 11:59 11:59 11:59 Intake Total 900 / 900 750 / 750 1000 / 1000 Output Total 900 / 900 Balance 0 / 0 750 / 750 1000 / 1000 - Physical Exam Oriented: Normal Eyes: Normal Ear: Normal Nose: Normal Throat: Normal Respiratory: Generalized, Diminished, Rales Cardiovascular: Edema (BLE 2+ PITTING EDEMA) : Normal Auscultation: Bowel Sounds: Normal Tenderness: Normal Skin: Normal Musculoskeletal: Normal Psychiatric: Normal Mood Description: Calm Affect: Normal Speech Pattern: Clear, Delayed - Laboratory and Diagnostics Result Diagrams: 12/23/21 05:48 12/23/21 05:48 Labs: 12/19/21 11:37 Blood Blood Culture - Preliminary 12/19/21 11:30 Blood Blood Culture - Preliminary 12/14/21 14:57 Urine,Catheterized Urine Culture - Final Klebsiella Pneumoniae Laboratory WBC 6.9 X10^3/uL (3.6-10.0) 12/23/21 05:48 RBC 3.81 X10^6/uL (4.7-6.0) L 12/23/21 05:48 Hgb 11.3 g/dL (13.5-18.0) L 12/23/21 05:48 Hct 33.4 % (42.0-54.0) L 12/23/21 05:48 MCV 87.6 fL (80.0-100.0) 12/23/21 05:48 MCH 29.7 pg (27.0-34.0) 12/23/21 05:48 MCHC 33.8 g/dL (33.0-35.0) 12/23/21 05:48 RDW 18.3 % (11.6-16.5) H 12/23/21 05:48 Plt Count 165 X10^3/uL (150.0-450.0) 12/23/21 05:48 MPV 10.2 fL (7.4-11.0) 12/23/21 05:48 Neut % (Auto) 70.2 % (42.0-75.0) 12/23/21 05:48 Lymph % (Auto) 14.9 % (21.0-51.0) L 12/23/21 05:48 [place] % (Auto) 12.2 % (0.0-13.0) 12/23/21 05:48 Eos % (Auto) 1.9 % (0.9-2.9) 12/23/21 05:48 Baso % (Auto) 0.8 % (0.2-1.0) 12/23/21 05:48 Neut # (Auto) 4.8 x10^3/uL (2.2-4.8) 12/23/21 05:48 Lymph # (Auto) 1.0 X10^3/uL (1.3-2.9) L 12/23/21 05:48 [place] # (Auto) 0.8 x10^3/uL (0.3-0.8) 12/23/21 05:48 Eos # (Auto) 0.1 x10^3/uL (0.0-0.2) 12/23/21 05:48 Baso # (Auto) 0.1 X10^3/uL (0.0-0.1) 12/23/21 05:48 Absolute Nucleated RBC 0.1 /100WBC 12/23/21 05:48 Sodium 139 mmol/L (136-145) 12/23/21 05:48 Corrected Sodium TNP 12/23/21 05:48 Potassium 3.1 mmol/L (3.5-5.1) L 12/23/21 05:48 Chloride 102 mmol/L (98-107) 12/23/21 05:48 Carbon Dioxide 23.8 mmol/L (21-32) 12/23/21 05:48 BUN 36 mg/dL (7-18) H 12/23/21 05:48 Creatinine 1.78 mg/dL (0.70-1.30) H 12/23/21 05:48 Est GFR (MDRD) Af Amer 47 (>60) L 12/23/21 05:48 Est GFR (MDRD) Non-Af 39 (>60) L 12/23/21 05:48 Glucose 109 mg/dL (65-99) H 12/23/21 05:48 POC Glucose (mg/dL) 158 mg/dL (65-99) H 12/14/21 13:10 Lactic Acid 1.7 mmol/L (0.4-2.0) 12/14/21 14:00 Calcium 8.1 mg/dL (8.5-10.1) L 12/23/21 05:48 Corrected Calcium 9.2 mg/dL (8.5-10.1) 12/23/21 05:48 Magnesium 1.8 mg/dL (1.7-2.9) 12/23/21 05:48 Total Bilirubin 0.70 mg/dL (0.2-1.0) 12/23/21 05:48 AST 26 Units/L (15-37) 12/23/21 05:48 ALT 7 Units/L (12-78) L 12/23/21 05:48 Alkaline Phosphatase 151 Units/L (46-116) H 12/23/21 05:48 Creatine Kinase 38 Units/L (39-308) L 12/20/21 19:07 CK-MB (CK-2) < 1.0 ng/mL (0-4.0) 12/20/21 19:07 CK/CKMB % Calc 2.6 % (<4) 12/20/21 19:07 Troponin I High Sens 38.6 ng/L (4.0-60.0) 12/20/21 19:07 B-Natriuretic Peptide 1340 pg/mL (0-79) H* 12/23/21 05:48 Total Protein 6.4 g/dL (6.4-8.2) 12/23/21 05:48 Albumin 2.6 g/dL (3.4-5.0) L 12/23/21 05:48 Globulin 3.8 g/dL (2.5-4.5) 12/23/21 05:48 Albumin/Globulin Ratio 0.7 Ratio (1.1-2.1) L 12/23/21 05:48 Lipase 267 Units/L (73-393) 12/14/21 13:10 Specimen Type Catherized urine 12/14/21 14:57 Urine Color Yellow (YELLOW) 12/14/21 14:57 Urine Appearance Cloudy (CLEAR) 12/14/21 14:57 Urine pH 7.0 (5.0 - 8.0) 12/14/21 14:57 Ur Specific [place] 1.010 (1.000-1.030) 12/14/21 14:57 Urine Protein 2+ (NEGATIVE) 12/14/21 14:57 Urine Glucose (UA) Negative (NEGATIVE) 12/14/21 14:57 Urine Ketones Negative (NEGATIVE) 12/14/21 14:57 Urine Blood 2+ (NEGATIVE) 12/14/21 14:57 Urine Nitrite Negative (NEGATIVE) 12/14/21 14:57 Urine Bilirubin Negative (NEGATIVE) 12/14/21 14:57 Urine Urobilinogen Normal (NORMAL) 12/14/21 14:57 Ur Leukocyte Esterase 3+ (NEGATIVE) 12/14/21 14:57 Urine RBC 10-20 /HPF (0-3) A 12/14/21 14:57 Urine WBC Tntc /HPF (0-5) A 12/14/21 14:57 Ur Squamous Epith Cells Moderate /HPF (NEGATIVE) 12/14/21 14:57 Amorphous Sediment 1+ /HPF (NEGATIVE) 12/14/21 14:57 Urine Bacteria 2+ /HPF (NEGATIVE) 12/14/21 14:57 Other Casts Few /LPF (NEGATIVE) 12/14/21 14:57 Ur Culture Indicated? Yes/culture set up 12/14/21 14:57 SARS-CoV-2 (PCR) Negative (NEGATIVE) 12/14/21 15:42 - Plan (1) Congestive heart failure Status: Chronic Qualifiers: Heart failure type: unspecified Heart failure chronicity: acute on chronic Qualified Code(s): I50.9 - Heart failure, unspecified Plan: D5NS AT KVO, LEVAQUIN 250MG IV DIALY, ROCEPHIN 1G IV DAILY, LASIX 40MG IV Q12H, DUONEBS QID, PULMICORT NEBS BID, ZYPREXA 10MG PO HS, CARDIZEM CD 180MG PO DAILY, TUSSIONEX 5ML PO Q12H PRN, HUMULIN R SLIDING SCALE, OTBS ACHS, AND THE POTASSIUM AND MAGNESIUM PROTOCOL. 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
[2021-12-23] MEDS ORDERED: KLONOPIN TAB 0.5 MG PO SCH (21:00)
[2021-12-24 06:08] LABS: BASOPHILS % (AUTO) 0.5 % (0.2-1.0); EOSINOPHILS # (AUTO) 0.1 x10^3/uL (0.0-0.2); EOSINOPHILS % (AUTO) 0.9 % (0.9-2.9); HEMATOCRIT 33.6 % (42.0-54.0); HEMOGLOBIN 11.3 g/dL (13.5-18.0); LYMPHOCYTES # (AUTO) 0.7 X10^3/uL (1.3-2.9); LYMPHOCYTES % (AUTO) 9.5 % (21.0-51.0); MEAN CORPUSCULAR HEMOGLOBIN 29.4 pg (27.0-34.0); MEAN CORPUSCULAR HGB CONC 33.5 g/dL (33.0-35.0); MEAN CORPUSCULAR VOLUME 87.9 fL (80.0-100.0); MEAN PLATELET VOLUME 9.4 fL (7.4-11.0); MONOCYTES # (AUTO) 0.8 x10^3/uL (0.3-0.8); MONOCYTES % (AUTO) 11.3 % (0.0-13.0); NEUTROPHILS # (AUTO) 5.4 x10^3/uL (2.2-4.8); NEUTROPHILS % (AUTO) 77.8 % (42.0-75.0); RED BLOOD COUNT 3.83 X10^6/uL (4.7-6.0); RED CELL DISTRIBUTION WIDTH 18.4 % (11.6-16.5)
--- NOTE | 2021-12-24 06:25 | RAD ---
HISTORYShortness of breathSTUDYChest AP [id number]/28/2022FINDINGSTher e is a pacemaker present in the left axilla. The heart is enlarged. No definite congestive heart failure is noted. No definite acute alveolar infiltrates or pleural effusions are identified. Bony thorax is unremarkable.IMPRESSIONMarked cardiomegaly without congestive heart failureNo definite infiltratesElectronically signed by: ADONIS VARGAS (Dec 24, 2021 06:25:24)
[2021-12-24 06:46] LABS: ALBUMIN 2.7 g/dL (3.4-5.0); CALCIUM 8.1 mg/dL (8.5-10.1); CARBON DIOXIDE 23.6 mmol/L (21-32); COR CA(FOR HYPOALB) 9.1 mg/dL (8.5-10.1); CREATININE 1.81 mg/dL (0.70-1.30); MAGNESIUM 2.1 mg/dL (1.7-2.9); TOTAL PROTEIN 6.5 g/dL (6.4-8.2)
[2021-12-24] MEDS: DUONEB 0.5 MG/3 MG (3 mL) NEB SCH (10:16)
[2021-12-24] MEDS: PULMICORT NEB TX 0.5 MG NEB SCH (10:16)
[2021-12-24 10:40] VITALS: BMI 23.4
[2021-12-24] MEDS: ARICEPT TAB 10 MG PO SCH (11:00)
[2021-12-24] MEDS: ASPIRIN EC 81 MG PO SCH (11:00)
[2021-12-24] MEDS: LASIX IVP SCH (11:17)
[2021-12-24] MEDS: CARDIZEM CD 180 MG 24-HR PO SCH (11:17)
[2021-12-24] MEDS: ELIQUIS PO SCH (11:17)
[2021-12-24] MEDS: FOLIC ACID TAB 1 MG PO SCH (11:17)
[2021-12-24] MEDS: SINEMET (PLAIN) 25/100 MG PO SCH (11:18)
[2021-12-24] MEDS: LEVAQUIN PREMIX IV 250 MG 250 MG/50 ML BAG IV SCH (11:18)
[2021-12-24] MEDS: ROCEPHIN VIAL 1 GRAM 1 G in NS 100 ML IV 100 ML IV SCH (11:18)
[2021-12-24] MEDS: ROBITUSSIN DM PO SCH (11:18)
[2021-12-24] MEDS: MEGACE PO SCH (11:18)
[2021-12-24] MEDS: TOPROL XL PO SCH (11:19)
[2021-12-24] MEDS: SYNTHROID 75 mcg TAB PO SCH (11:19)
[2021-12-24] MEDS: ZyPREXA TAB 5 MG PO SCH (11:23)
[2021-12-24 12:06] VITALS: BP 112/81
--- NOTE | 2021-12-24 12:08 | PCM.PROG ---
Progress Note - Progress Note for Day of Date of Exam: 12/23/21 - Subjective Subjective: IS CURRENTLY BEING TREATED FOR CHF, ACUTE ON CHRONIC RENAL FAILURE, A-FIB, UTI, AND DEHYDRATION. TODAY, HE IS ALERT, LYING IN BED ON MORNING ROUNDS. HE IS DISORIENTED AND DOES NOT FOLLOW COMMANDS. HE MUMBLES WHEN SPOKEN TO. NURSING STAFF REPORTS THAT HE HAS BEEN AGITATED THROUGHOUT THE NIGHT AND HASNT SLEPT WELL. ON EXAMINATION, HE IS TACHYCARDIC WITH HR 110-120. BILATERAL LUNGS NOTED WITH DIMINISHED LUNG SOUNDS THROUGHOUT. ABDOMEN IS ROUND, SOFT, AND NON-TENDER WITH NORMAL BOWEL SOUNDS NOTED IN ALL QUADRANTS. TRACE LOWER EXTREMITY EDEMA NOTED. HIS VITALS THIS MORNING ARE: 97. 4-119-20-95%-144/64. LABS WERE OBTAINED. ABNORMAL LAB VALUES INCLUDE THE FOLLOWING: RBC 3.81, HGB 11.3, HCT 33.4, POTASSIUM 3.1, BUN 36, CREATININE 1.78, GLUCOSE 109, CALCIUM 8.1, ALT 7, ALK PHOS 151, BNP 1340, ALBUMIN 2.6. CARDIAC ENZYMES NORMAL. BLOOD CULTURES ARE PENDING. URINE CULTURE IS POSITIVE FOR GROWTH OF KLEBSIELLA PNEUMONIAE. A CHEST XRAY WAS OBTAINED TODAY AND REVEALED: Cardiomegaly. No active cardiopulmonary disease. HE IS CURRENTLY RECEIVING D5NS AT KVO, LEVAQUIN 250MG IV DAILY, ROCEPHIN 1G IV DAILY, LASIX 40MG IV Q12H, CARDIZEM CD 180MG PO DAILY, DUONEBS QID, PULMICORT NEBS BID, ZYPREXA 10MG PO BID, TUSSIONEX 5ML PO Q12H PRN, HUMULIN R SLIDING SCALE, OTBS ACHS, AND THE POTASSIUM AND MAGNESIUM PROTOCOL. HIS HOME MEDICATIONS OF ELIQUIS, ECOTRIN, SINEMET, ARICEPT, FOLIC ACID, SYNTHROID, MEGACE, TOPROL, AND ULTRAM WERE RESUMED. WE WILL CONTINUE WITH CURRENT PLAN OF CARE TODAY AND ADD KLONOPIN 0.5MG PO HS. WE HAVE DISCUSSED AT LENGTH WITH PATIENTS FAMILY THE NATURE OF HIS CO NDITION AND PROGNOSIS. PATIENTS SPOUSE AND CHILDREN PLAN TO TAKE PATIENT HOME ON HOSPICE CARE FOLLOWING DISCHAGE. WE WILL DISCUSS THIS WITH CASE MANAGEMENT AND MAKE ARRANGEMENTS. OTHERWISE, WE PLAN TO FOLLOW UP WITH AM LABS AND CHEST XRAY AND CONTINUE TO MONITOR. TIME SPENT ON CLINICAL ASSESSMENT, REVIEWING LABS AND IMAGING, DECISION MAKING, AND DOCUMENTATION GREATER THAN 45 MINUTES. - Past Medical Family Social History Past Med/Fam/Surg Hx: No changes since H&P Allergies: Allergies No Known Drug Allergies Allergy (Verified 12/14/21 13:19) - Review of Systems ROS: No change since H&P - Vital Signs and I&O's Vital Signs: Temperature 97.0 F Pulse Rate [Left Brachial] 139 Pulse Rate 77 Respiratory Rate 20 Blood Pressure [Right Arm] 112/81 Blood Pressure [Left Arm] 144/64 Blood Pressure 118/61 O2 Sat by Pulse Oximetry 97 Intake and Output: Intake & Output 12/22/21 12/23/21 12/24/21 12/25/21 11:59 11:59 11:59 11:59 Intake Total 750 / 750 1000 / 1000 1170 / 1170 Balance 750 / 750 1000 / 1000 1170 / 1170 - Physical Exam Oriented: Normal Eyes: Normal Ear: Normal Nose: Normal Throat: Normal Respiratory: Generalized, Diminished, Rales Cardiovascular: Edema (BLE 2+ PITTING EDEMA) : Normal Auscultation: Bowel Sounds: Normal Palpation: Normal Tenderness: Normal Skin: Normal Musculoskeletal: Normal Psychiatric: Normal Mood Description: Calm Affect: Normal Speech Pattern: Clear, Delayed - Laboratory and Diagnostics Result Diagrams: 12/24/21 05:25 12/24/21 05:25 Labs: 12/19/21 11:37 Blood Blood Culture - Preliminary 12/19/21 11:30 Blood Blood Culture - Preliminary 12/14/21 14:57 Urine,Catheterized Urine Culture - Final Klebsiella Pneumoniae Laboratory WBC 7.0 X10^3/uL (3.6-10.0) 12/24/21 05:25 RBC 3.83 X10^6/uL (4.7-6.0) L 12/24/21 05:25 Hgb 11.3 g/dL (13.5-18.0) L 12/24/21 05:25 Hct 33.6 % (42.0-54.0) L 12/24/21 05:25 MCV 87.9 fL (80.0-100.0) 12/24/21 05:25 MCH 29.4 pg (27.0-34.0) 12/24/21 05:25 MCHC 33.5 g/dL (33.0-35.0) 12/24/21 05:25 RDW 18.4 % (11.6-16.5) H 12/24/21 05:25 Plt Count 182 X10^3/uL (150.0-450.0) 12/24/21 05:25 MPV 9.4 fL (7.4-11.0) 12/24/21 05:25 Neut % (Auto) 77.8 % (42.0-75.0) H 12/24/21 05:25 Lymph % (Auto) 9.5 % (21.0-51.0) L 12/24/21 05:25 [place] % (Auto) 11.3 % (0.0-13.0) 12/24/21 05:25 Eos % (Auto) 0.9 % (0.9-2.9) 12/24/21 05:25 Baso % (Auto) 0.5 % (0.2-1.0) 12/24/21 05:25 Neut # (Auto) 5.4 x10^3/uL (2.2-4.8) H 12/24/21 05:25 Lymph # (Auto) 0.7 X10^3/uL (1.3-2.9) L 12/24/21 05:25 [place] # (Auto) 0.8 x10^3/uL (0.3-0.8) 12/24/21 05:25 Eos # (Auto) 0.1 x10^3/uL (0.0-0.2) 12/24/21 05:25 Baso # (Auto) 0.0 X10^3/uL (0.0-0.1) 12/24/21 05:25 Absolute Nucleated RBC 0.1 /100WBC 12/24/21 05:25 Sodium 137 mmol/L (136-145) 12/24/21 05:25 Corrected Sodium 138 mmol/L (136-145) 12/24/21 05:25 Potassium 3.2 mmol/L (3.5-5.1) L 12/24/21 05:25 Chloride 101 mmol/L (98-107) 12/24/21 05:25 Carbon Dioxide 23.6 mmol/L (21-32) 12/24/21 05:25 BUN 31 mg/dL (7-18) H 12/24/21 05:25 Creatinine 1.81 mg/dL (0.70-1.30) H 12/24/21 05:25 Est GFR (MDRD) Af Amer 46 (>60) L 12/24/21 05:25 Est GFR (MDRD) Non-Af 38 (>60) L 12/24/21 05:25 Glucose 155 mg/dL (65-99) H 12/24/21 05:25 POC Glucose (mg/dL) 158 mg/dL (65-99) H 12/14/21 13:10 Lactic Acid 1.7 mmol/L (0.4-2.0) 12/14/21 14:00 Calcium 8.1 mg/dL (8.5-10.1) L 12/24/21 05:25 Corrected Calcium 9.1 mg/dL (8.5-10.1) 12/24/21 05:25 Magnesium 2.1 mg/dL (1.7-2.9) 12/24/21 05:25 Total Bilirubin 0.60 mg/dL (0.2-1.0) 12/24/21 05:25 AST 27 Units/L (15-37) 12/24/21 05:25 ALT 12 Units/L (12-78) 12/24/21 05:25 Alkaline Phosphatase 166 Units/L (46-116) H 12/24/21 05:25 Creatine Kinase 38 Units/L (39-308) L 12/20/21 19:07 CK-MB (CK-2) < 1.0 ng/mL (0-4.0) 12/20/21 19:07 CK/CKMB % Calc 2.6 % (<4) 12/20/21 19:07 Troponin I High Sens 38.6 ng/L (4.0-60.0) 12/20/21 19:07 B-Natriuretic Peptide 1490 pg/mL (0-79) H* 12/24/21 05:25 Total Protein 6.5 g/dL (6.4-8.2) 12/24/21 05:25 Albumin 2.7 g/dL (3.4-5.0) L 12/24/21 05:25 Globulin 3.8 g/dL (2.5-4.5) 12/24/21 05:25 Albumin/Globulin Ratio 0.7 Ratio (1.1-2.1) L 12/24/21 05:25 Lipase 267 Units/L (73-393) 12/14/21 13:10 Specimen Type Catherized urine 12/14/21 14:57 Urine Color Yellow (YELLOW) 12/14/21 14:57 Urine Appearance Cloudy (CLEAR) 12/14/21 14:57 Urine pH 7.0 (5.0 - 8.0) 12/14/21 14:57 Ur Specific [place] 1.010 (1.000-1.030) 12/14/21 14:57 Urine Protein 2+ (NEGATIVE) 12/14/21 14:57 Urine Glucose (UA) Negative (NEGATIVE) 12/14/21 14:57 Urine Ketones Negative (NEGATIVE) 12/14/21 14:57 Urine Blood 2+ (NEGATIVE) 12/14/21 14:57 Urine Nitrite Negative (NEGATIVE) 12/14/21 14:57 Urine Bilirubin Negative (NEGATIVE) 12/14/21 14:57 Urine Urobilinogen Normal (NORMAL) 12/14/21 14:57 Ur Leukocyte Esterase 3+ (NEGATIVE) 12/14/21 14:57 Urine RBC 10-20 /HPF (0-3) A 12/14/21 14:57 Urine WBC Tntc /HPF (0-5) A 12/14/21 14:57 Ur Squamous Epith Cells Moderate /HPF (NEGATIVE) 12/14/21 14:57 Amorphous Sediment 1+ /HPF (NEGATIVE) 12/14/21 14:57 Urine Bacteria 2+ /HPF (NEGATIVE) 12/14/21 14:57 Other Casts Few /LPF (NEGATIVE) 12/14/21 14:57 Ur Culture Indicated? Yes/culture set up 12/14/21 14:57 SARS-CoV-2 (PCR) Negative (NEGATIVE) 12/14/21 15:42 - Plan (1) Congestive heart failure Status: Chronic Qualifiers: Heart failure type: unspecified Heart failure chronicity: acute on chronic Qualified Code(s): I50.9 - Heart failure, unspecified Plan: D5NS AT KVO, LEVAQUIN 250MG IV DIALY, ROCEPHIN 1G IV DAILY, LASIX 40MG IV Q12H, DUONEBS QID, PULMICORT NEBS BID, ZYPREXA 10MG PO HS, KLONOPIN 0.5MG HS, CARDIZEM CD 180MG PO DAILY, TUSSIONEX 5ML PO Q12H PRN, HUMULIN R SLIDING SCALE, OTBS ACHS, AND THE POTASSIUM AND MAGNESIUM PROTOCOL. 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
--- NOTE | 2021-12-27 11:34 | PCM.PROG ---
Progress Note - Progress Note for Day of Date of Exam: 12/16/21 - Subjective Subjective: IS CURRENTLY BEING TREATED FOR CHF, ACUTE ON CHRONIC RENAL FAILURE, A-FIB, UTI, AND DEHYDRATION. TODAY, HE IS ALERT, LYING IN BED ON MORNING ROUNDS. HE IS DISORIENTED AND DOES NOT FOLLOW COMMANDS. NURSING STAFF REPORTS THAT HE HAS BEEN AGITATED THROUGHOUT THE NIGHT. ON EXAMINATION, HE IS TACHYCARDIC WITH HR 120-140. BILATERAL LUNGS NOTED WITH DIMINISHED LUNG SOUNDS THROUGHOUT. ABDOMEN IS ROUND, SOFT, AND NON-TENDER WITH NORMAL BOWEL SOUNDS NOTED IN ALL QUADRANTS. TRACE LOWER EXTREMITY EDEMA NOTED. LVIE CATHETER NOTED TO BEDSIDE DRAINAGE. HIS VITALS THIS MORNING ARE: 97.0-130-30-98%NC@2-91/60. LABS WERE OBTAINED. ABNORMAL LAB VALUES INCLUDE THE FOLLOWING: RBC 4.32, HGB 12.5, HCT 38.3, BUN 51, CREATININE 1.77, GLUCOSE 163, CALCIUM 8.2, ALK PHOS 166, BNP 1970, ALBUMIN 2.6. URINE CULTURE IS PENDING. PRELIMINARY CULTURE IS POSITIVE FOR GRAM NEGATIVE RODS. A CHEST XRAY WAS OBTAINED TODAY AND REVEALED: 1. Unchanged right pleural effusion.2. Unchanged mild cardiomegaly. 3. No consolidation. HE IS CURRENTLY RECEIVING D5NS AT 80 ML/HR, ROCEPHIN 1G IV DAILY, FUROSEMIDE 20MG IV BID, AND HIS HOME MEDICATIONS OF ELIQUIS, ECOTRIN, SINEMET, COREG, KLONOPIN, ARICEPT, FOLIC ACID, SYNTHROID, AND ULTRAM WERE RESUMED. WE WILL ADMINISTER AN ADDITIONAL DOSE OF LASIX 20MG IV X 1 DOSE TODAY. WE WILL ALSO ADMINISTER DIGOXIN 0.125MG PO X 1. DUE TO INCREASED AGITATION AT BEDTIME, WE WILL ADD HYDOXYZINE HS PRN. WE WILL OBTAIN SERIAL CARDIAC ENZYMES AND EKGS. OTHERWISE, WE PLAN TO FOLLOW UP WITH AM LABS AND CHEST XRAY AND CONTINUE TO MONITOR. TIME SPENT ON CLINICAL ASSESSMENT, REVIEWING LABS AND IMAGING, DECISION MAKING, AND DOCUMENTATION GREATER THAN 45 MINUTES. - Past Medical Family Social History Past Med/Fam/Surg Hx: No changes since H&P Allergies: Allergies No Known Drug Allergies Allergy (Verified 12/14/21 13:19) - Review of Systems ROS: No change since H&P - Vital Signs and I&O's Vital Signs: Temperature 97.0 F Pulse Rate [Left Brachial] 139 Pulse Rate 77 Respiratory Rate 20 Blood Pressure [Right Arm] 112/81 Blood Pressure [Left Arm] 144/64 Blood Pressure 118/61 O2 Sat by Pulse Oximetry 97 Intake and Output: Intake & Output 12/24/21 12/25/21 12/26/21 12/27/21 11:59 11:59 11:59 11:59 Intake Total 1170 / 1170 Balance 1170 / 1170 - Physical Exam Oriented: Normal Eyes: Normal Ear: Normal Nose: Normal Throat: Normal Respiratory: Generalized, Diminished, Rales Cardiovascular: Edema (BLE 2+ PITTING EDEMA) : Normal Auscultation: Bowel Sounds: Normal Palpation: Normal Tenderness: Normal Skin: Normal Musculoskeletal: Normal Psychiatric: Normal Mood Description: Calm Affect: Normal Speech Pattern: Clear, Delayed - Laboratory and Diagnostics Result Diagrams: 12/24/21 05:25 12/24/21 05:25 Labs: 12/19/21 11:37 Blood Blood Culture - Final 12/19/21 11:30 Blood Blood Culture - Final 12/14/21 14:57 Urine,Catheterized Urine Culture - Final Klebsiella Pneumoniae Laboratory WBC 7.0 X10^3/uL (3.6-10.0) 12/24/21 05:25 RBC 3.83 X10^6/uL (4.7-6.0) L 12/24/21 05:25 Hgb 11.3 g/dL (13.5-18.0) L 12/24/21 05:25 Hct 33.6 % (42.0-54.0) L 12/24/21 05:25 MCV 87.9 fL (80.0-100.0) 12/24/21 05:25 MCH 29.4 pg (27.0-34.0) 12/24/21 05:25 MCHC 33.5 g/dL (33.0-35.0) 12/24/21 05:25 RDW 18.4 % (11.6-16.5) H 12/24/21 05:25 Plt Count 182 X10^3/uL (150.0-450.0) 12/24/21 05:25 MPV 9.4 fL (7.4-11.0) 12/24/21 05:25 Neut % (Auto) 77.8 % (42.0-75.0) H 12/24/21 05:25 Lymph % (Auto) 9.5 % (21.0-51.0) L 12/24/21 05:25 [place] % (Auto) 11.3 % (0.0-13.0) 12/24/21 05:25 Eos % (Auto) 0.9 % (0.9-2.9) 12/24/21 05:25 Baso % (Auto) 0.5 % (0.2-1.0) 12/24/21 05:25 Neut # (Auto) 5.4 x10^3/uL (2.2-4.8) H 12/24/21 05:25 Lymph # (Auto) 0.7 X10^3/uL (1.3-2.9) L 12/24/21 05:25 [place] # (Auto) 0.8 x10^3/uL (0.3-0.8) 12/24/21 05:25 Eos # (Auto) 0.1 x10^3/uL (0.0-0.2) 12/24/21 05:25 Baso # (Auto) 0.0 X10^3/uL (0.0-0.1) 12/24/21 05:25 Absolute Nucleated RBC 0.1 /100WBC 12/24/21 05:25 Sodium 137 mmol/L (136-145) 12/24/21 05:25 Corrected Sodium 138 mmol/L (136-145) 12/24/21 05:25 Potassium 3.2 mmol/L (3.5-5.1) L 12/24/21 05:25 Chloride 101 mmol/L (98-107) 12/24/21 05:25 Carbon Dioxide 23.6 mmol/L (21-32) 12/24/21 05:25 BUN 31 mg/dL (7-18) H 12/24/21 05:25 Creatinine 1.81 mg/dL (0.70-1.30) H 12/24/21 05:25 Est GFR (MDRD) Af Amer 46 (>60) L 12/24/21 05:25 Est GFR (MDRD) Non-Af 38 (>60) L 12/24/21 05:25 Glucose 155 mg/dL (65-99) H 12/24/21 05:25 POC Glucose (mg/dL) 158 mg/dL (65-99) H 12/14/21 13:10 Lactic Acid 1.7 mmol/L (0.4-2.0) 12/14/21 14:00 Calcium 8.1 mg/dL (8.5-10.1) L 12/24/21 05:25 Corrected Calcium 9.1 mg/dL (8.5-10.1) 12/24/21 05:25 Magnesium 2.1 mg/dL (1.7-2.9) 12/24/21 05:25 Total Bilirubin 0.60 mg/dL (0.2-1.0) 12/24/21 05:25 AST 27 Units/L (15-37) 12/24/21 05:25 ALT 12 Units/L (12-78) 12/24/21 05:25 Alkaline Phosphatase 166 Units/L (46-116) H 12/24/21 05:25 Creatine Kinase 38 Units/L (39-308) L 12/20/21 19:07 CK-MB (CK-2) < 1.0 ng/mL (0-4.0) 12/20/21 19:07 CK/CKMB % Calc 2.6 % (<4) 12/20/21 19:07 Troponin I High Sens 38.6 ng/L (4.0-60.0) 12/20/21 19:07 B-Natriuretic Peptide 1490 pg/mL (0-79) H* 12/24/21 05:25 Total Protein 6.5 g/dL (6.4-8.2) 12/24/21 05:25 Albumin 2.7 g/dL (3.4-5.0) L 12/24/21 05:25 Globulin 3.8 g/dL (2.5-4.5) 12/24/21 05:25 Albumin/Globulin Ratio 0.7 Ratio (1.1-2.1) L 12/24/21 05:25 Lipase 267 Units/L (73-393) 12/14/21 13:10 Specimen Type Catherized urine 12/14/21 14:57 Urine Color Yellow (YELLOW) 12/14/21 14:57 Urine Appearance Cloudy (CLEAR) 12/14/21 14:57 Urine pH 7.0 (5.0 - 8.0) 12/14/21 14:57 Ur Specific [place] 1.010 (1.000-1.030) 12/14/21 14:57 Urine Protein 2+ (NEGATIVE) 12/14/21 14:57 Urine Glucose (UA) Negative (NEGATIVE) 12/14/21 14:57 Urine Ketones Negative (NEGATIVE) 12/14/21 14:57 Urine Blood 2+ (NEGATIVE) 12/14/21 14:57 Urine Nitrite Negative (NEGATIVE) 12/14/21 14:57 Urine Bilirubin Negative (NEGATIVE) 12/14/21 14:57 Urine Urobilinogen Normal (NORMAL) 12/14/21 14:57 Ur Leukocyte Esterase 3+ (NEGATIVE) 12/14/21 14:57 Urine RBC 10-20 /HPF (0-3) A 12/14/21 14:57 Urine WBC Tntc /HPF (0-5) A 12/14/21 14:57 Ur Squamous Epith Cells Moderate /HPF (NEGATIVE) 12/14/21 14:57 Amorphous Sediment 1+ /HPF (NEGATIVE) 12/14/21 14:57 Urine Bacteria 2+ /HPF (NEGATIVE) 12/14/21 14:57 Other Casts Few /LPF (NEGATIVE) 12/14/21 14:57 Ur Culture Indicated? Yes/culture set up 12/14/21 14:57 SARS-CoV-2 (PCR) Negative (NEGATIVE) 12/14/21 15:42 - Plan (1) Congestive heart failure Status: Chronic Qualifiers: Heart failure type: unspecified Heart failure chronicity: acute on chronic Qualified Code(s): I50.9 - Heart failure, unspecified Plan: D5NS AT 80 ML/HR, ROCEPHIN 1G IV DAILY, FUROSEMIDE 20MG IV BID, HYDROXYZINE HS PRN, AND HIS HOME MEDICATIONS OF ELIQUIS, ECOTRIN, SINEMET, COREG, KLONOPIN, ARICEPT, FOLIC ACID, SYNTHROID, AND ULTRAM WERE RESUMED. DIGOXIN 0.125MG PO X 1 (2) Acute on chronic renal failure Status: Acute Qualifiers: Acute renal failure type: unspecified Chronic kidney disease stage: stage 3 (moderate) Chronic kidney disease stage 3 subtype: stage 3b (GFR 30-44) Qualified Code(s): N17.9 - Acute kidney failure, unspecified; N18.32 - Chronic kidney disease, stage 3b (3) Urinary tract infection Status: Acute Qualifiers: Urinary tract infection type: acute cystitis Hematuria presence: with hematuria Qualified Code(s): N30.01 - Acute cystitis with hematuria (4) Dehydration Status: Acute (5) A-fib Status: Acute
== END 2021-12-24 12:15 | disposition hospice, home (50) | DRG 292 ==
LOC: ER 12:59 → MED/SURG 15:30
PROVIDERS: ADMIT Internal Medicine; ATTEND Internal Medicine
DX: Y93.9 Activity, unspecified; I13.0 Hypertensive heart and chronic kidney disease with heart failure and stage 1 through stage 4 chronic kidney disease, or unspecified chronic kidney disease; R41.0 Disorientation, unspecified; I42.9 Cardiomyopathy, unspecified; N18.32 Chronic kidney disease, stage 3b; Z95.0 Presence of cardiac pacemaker; E78.5 Hyperlipidemia, unspecified; Z20.822 Contact with and (suspected) exposure to COVID-19; I50.9 Heart failure, unspecified; Y92.230 Patient room in hospital as the place of occurrence of the external cause; I48.91 Unspecified atrial fibrillation; Z66 Do not resuscitate; W19.XXXA Unspecified fall, initial encounter; N17.9 Acute kidney failure, unspecified; N30.01 Acute cystitis with hematuria; Y99.9 Unspecified external cause status; F03.90 Unspecified dementia, unspecified severity, without behavioral disturbance, psychotic disturbance, mood disturbance, and anxiety; R26.89 Other abnormalities of gait and mobility; E03.9 Hypothyroidism, unspecified; Z90.49 Acquired absence of other specified parts of digestive tract; B96.1 Klebsiella pneumoniae [K. pneumoniae] as the cause of diseases classified elsewhere; E86.0 Dehydration